=== PATIENT | male | born 1945 | race Caucasian/White ===

== ENCOUNTER 2016-09-08 13:36 | Emergency (ER) | payer MEDICARE, OTHER ==
[2016-09-08 14:29] VITALS: O2SAT 100
--- NOTE | 2016-09-08 15:24 | ERPHSYRPT ---
- History of Present Illness Time Seen by Provider: 09/08/16 14:42 Source: patient Patient Subjective Stated Complaint: STATES HIT LEFT HAND WITH A TARP STRAP THIS AM. INJURY TO LEFT 4TH DIGIT. Triage Nursing Assessment: LEFT HAND 4TH DIGIT BRUISED AND SWOLLEN. LIMITED ROM DUE TO SWELLING. Physician History: CC: left 4th finger pain Hx: 71 y/o patient of Dr Roche got left hand 4th finger twisted in a tarp strap. Pain, bruising swelling. Injury today. Declines any pain meds. He wants a splint. No other injuries. Pain mild. Occurred: this morning Severity of Pain-Max: mild Severity of Pain-Current: mild Extremities Pain Location: 4th finger: left Allergies/Adverse Reactions: hydrocodone bitartrate [From Vicodin] Allergy (Mild, Verified 09/08/16 14:33) tolmetin [From Tolectin] Allergy (Verified 09/08/16 14:44) Home Medications: Aspirin [Aspir 81] 81 mg PO HS 02/12/12 [History] Ezetimibe 10 mg [Zetia 10 MG] 10 mg PO HS 02/12/12 [History] Metoprolol Succinate 25 mg PO DAILY 02/12/12 [History] Warfarin Sodium 5 mg [Coumadin 5 MG] 5 mg PO HS 02/12/12 [History] Losartan/Hydrochlorothiazide [Losartan-Hctz 50-12.5 mg Tab] 1 each PO DAILY [History] Lansoprazole [Prevacid] 30 mg PO DAILY 11/07/15 [History] Hx Tetanus, Diphtheria Vaccination/Date Given: Yes Hx Influenza Vaccination/Date Given: No Hx Pneumococcal Vaccination/Date Given: No Immunizations Up to Date: No - Review of Systems Constitutional: No Symptoms Musculoskeletal: Joint Pain (left 4th finger), No Back Pain, No Neck Pain Neurological: No Focal Weakness, No Parasthesia - Past Medical History Pertinent Past Medical History: Yes Neurological History: No Pertinent History ENT History: No Pertinent History Cardiac History: Arrhythmia, High Cholesterol, Hypertension Respiratory History: No Pertinent History Endocrine Medical History: No Pertinent History Musculoskeletal History: Arthritis GI Medical History: GERD History: No Pertinent History Psycho-Social History: No Pertinent History Male Reproductive Disorders: No Pertinent History - Past Surgical History Past Surgical History: Yes Cardiac: Cardiac Catheterization, Cardiac Stent Gastrointestinal: Hemorrhoidectomy Musculoskeletal: Orthopedic Surgery - Social History Smoking Status: Current every day smoker How long have you smoked: 58 Exposure to second hand smoke: No Drug Use: none Patient Lives Alone: No - Nursing Vital Signs Nursing Vital Signs: Initial Vital Signs Temperature 98.0 F Temperature Source Oral Pulse Rate 87 Respiratory Rate 16 Blood Pressure [Right Arm] 132/71 Pain Intensity 3 - Physical Exam General Appearance: alert Eyes, Ears, Nose, Throat Exam: moist mucous membranes Cardiovascular/Respiratory Exam: regular rate/rhythm Neuro/Tendon Exam: normal sensation, normal motor functions Mental Status Exam: alert, oriented x 3, cooperative Skin Exam: warm, dry SpO2: 100 Oxygen Delivery: Room Air Comments: Left hand 4th finger is swollen with some bruising, more tender middle phalynx. Procedures - Splinting Location of Splint: Left Type of Splint: Foam Pad Finger Splint - Radiology Exams left hand X-ray Interpretation: Interpreted by me (fracture left 4th finger middle phalynx.) Ordered Tests: Active Orders 24 hr Category Date Time Status Cold Application STAT Care 09/08/16 14:52 Active Splint STAT Care 09/08/16 14:52 Active HAND (MINIMUM 3 VIEWS) Stat Exams 09/08/16 14:52 Taken - Progress Progress Note: 09/08/16 15:23 Advised ice, splint, rest, elevate. Follow up with Dr roche. Counseled pt/family regarding: diagnosis, need for follow-up, rad results - Departure Time of Disposition: 15:23 Departure Disposition: Home Clinical Impression: Fracture of finger, middle phalanx, closed Qualifiers: Encounter type: initial encounter Finger: ring finger Fracture alignment: nondisplaced Laterality: left Qualified Code(s): S62.655A - Nondisplaced fracture of medial phalanx of left ring finger, initial encounter for closed fracture Condition: Stable Critical Care Time: No Referrals: MALAIKA ROCHE MD [Primary Care Provider] - Instructions: Finger Fracture Additional Instructions: Ice, rest, splint. Tylenol as directed for discomfort. Follow up this week with Dr Roche.
[2016-09-08 15:32] VITALS: BP 130/74; PULSE 86
--- NOTE | 2016-09-08 20:26 | XRAY ---
Indication: Fourth finger pain following car door injury. Comparison: None 3 views of the left hand demonstrates nondisplaced hairline fracture involving the fourth middle phalanx with soft tissue swelling. No other bony, articular, or soft tissue abnormalities.
== END 2016-09-08 15:32 | disposition home or self-care (01) ==
LOC: ED 13:36
DX: S62.655A Nondisplaced fracture of middle phalanx of left ring finger, initial encounter for closed fracture (principal); W23.0XXA Caught, crushed, jammed, or pinched between moving objects, initial encounter
CPT/HCPCS: 73130; 99283

== ENCOUNTER 2023-03-10 07:01 | Emergency (ER) | payer MEDICARE, OTHER ==
[2023-03-10] MEDS ORDERED: Cordarone 150 MG/3 ML Injection ONE (07:08)
[2023-03-10] MEDS ORDERED: Sodium Chloride 0.9% 1000 ML 1,000 ML ONE (07:08)
[2023-03-10] MEDS ORDERED: NEXTERONE 360 MG/200 ML BAG 360 MG/200 ML PLAST..BAG IV ONE (07:15)
[2023-03-10] MEDS ORDERED: Cordarone 150 MG/3 ML Injection IV ONE (07:20)
[2023-03-10 07:22] VITALS: TEMP 98
[2023-03-10] MEDS ORDERED: NEXTERONE 360 MG/200 ML BAG 360 MG/200 ML PLAST..BAG IV SCH (07:25)
[2023-03-10] MEDS ORDERED: Cordarone 150 MG/3 ML Injection*** 150 MG in D5w 100ML Mini Bag 100 ML 100 ML IV ONE (07:33)
[2023-03-10] MEDS ORDERED: Zofran 4 MG/2 ML VIAL IV STA (07:33)
--- NOTE | 2023-03-10 07:38 | ERPHSYRPT ---
- History of Present Illness Time Seen by Provider: 03/10/23 07:05 Source: patient, family, EMS, old records Exam Limitations: no limitations Patient Subjective Stated Complaint: C/O SOB for a few days. Denies fever or chest pain. Does states, "My whole body aches sometimes." Triage Nursing Assessment: Patient arrived by ambulance. SOB upon arrival. EMS had patient on 02 with nebulizer. Once nebulizer finished, 02 sats on room air 93% 02 at 2L per N/C applied. NO cough noted at this time. He is flushed. Alert and oriented. Trace edema to BLE. Rapid Heart Rate. 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 Patient was brought into the emergency department by the paramedics. Both the paramedics and the patient's spouse provided independent, additional history. Paramedics provided additional history regarding the events of this morning on the provided additional independent history of medical condition, medical issues and medication list. Patient is on Viagra. He has increased the dosing to twice a day over the last 2 to 3 weeks. His prescribing physician told him he could actually take it 3 times a day. Patient has a history of hypertension, COPD and gastroesophageal reflux disease. The patient received Solu-Medrol intravenously and two DuoNeb treatments by the paramedics en route to our facility. Patient did not take his morning medication. Patient denies fever. Patient denies chest pain. Patient denies cough. Patient's room air oxygen saturation level on arrival to the emergency department is 93%. Timing/Duration: day(s) (2), worse (Symptoms worse this morning) Activities at Onset: none Severity of Dyspnea-Max: mild (To moderate) Severity of Dyspnea-Current: mild Possible Cause: occasional episodes Modifying Factors: Improves With: oxygen (Improved) Associated Symptoms: No cough, No chest pain/discomfort, No loss of appetite, No wheezing, No weakness, No chills, No hemoptysis, No productive cough Allergies/Adverse Reactions: hydrocodone bitartrate [From Vicodin] Allergy (Mild, Verified 03/10/23 07:02) tolmetin [From Tolectin] Allergy (Verified 03/10/23 07:02) Home Medications: Aspirin [Aspir 81] 81 mg PO HS 02/12/12 [History] Ezetimibe 10 mg [Zetia 10 MG] 10 mg PO HS 02/12/12 [History] Losartan/Hydrochlorothiazide [Losartan-Hctz 50-12.5 mg Tab] 1 tab PO DAILY 03/24/14 [History] Lansoprazole [Prevacid] 30 mg PO DAILY 11/07/15 [History] Nitroglycerin [Nitrostat] 0.4 mg SL Q5MIN PRN MR X 3 PRN 04/04/20 [History] Vit A/Vit C/Vit E/Zinc/Copper [Preservision Areds Softgel] 1 tablet PO DAILY 04/04/20 [History] Tamsulosin HCl 0.4 mg [Flomax 0.4 MG] 0.4 mg PO DAILY 12/26/20 [History] Allopurinol 100 mg [Zyloprim 100 mg] 1 tab PO HS 03/10/23 [History] Apixaban [Eliquis] 1 tab PO BID 03/10/23 [History] Fluticasone/Umeclidin/Vilanter [Trelegy Ellipta 100-62.5-25] 1 puff PO DAILY 03/10/23 [History] Ipratropium/Albuterol Sulfate [Combivent Respimat Inhal [place]] 1 puff PO QID 03/10/23 [History] Metoprolol Tartrate 25 mg [Lopressor 25MG Tab] 1 tab PO DAILY 03/10/23 [History] Sildenafil Citrate 1 tab PO BID 03/10/23 [History] Hx Tetanus, Diphtheria Vaccination/Date Given: Yes Hx Influenza Vaccination/Date Given: No Hx Pneumococcal Vaccination/Date Given: No Immunizations Up to Date: Yes Travel Risk - International Travel Have you traveled outside of the country in past 3 weeks: No - Coronavirus Screening Are you exhibiting any of the following symptoms?: Yes Symptoms: Cough: New Onset, Shortness of Breath, Vomiting/Diarrhea, Headaches/Body Aches/Fatigue Close contact with a COVID-19 positive Pt in past 14-21 Days: No - Vaccine Status Have you recieved a Covid-19 vaccination: Yes Assistant Operator: Unknown - Vaccination Dates Dates if Unknown: ? - Review of Systems Constitutional: No Symptoms Eyes: No Symptoms Ears, Nose, & Throat: No Symptoms Respiratory: Dyspnea Cardiac: Palpitations, No Chest Pain Abdominal/Gastrointestinal: Vomiting (Once this morning) Genitourinary Symptoms: No Symptoms Musculoskeletal: Arthralgias, Myalgias Skin: No Symptoms Neurological: No Symptoms Psychological: No Symptoms Endocrine: No Symptoms Hematologic/Lymphatic: No Symptoms Immunological/Allergic: No Symptoms All Other Systems: Reviewed and Negative - Past Medical History Pertinent Past Medical History: Yes Neurological History: TIA ENT History: No Pertinent History Cardiac History: Arrhythmia, Coronary Artery Disease, Hypertension Respiratory History: COPD, Other Endocrine Medical History: No Pertinent History Musculoskeletal History: Arthritis, Other GI Medical History: GERD, Hemorrhoids History: No Pertinent History Psycho-Social History: No Pertinent History Male Reproductive Disorders: No Pertinent History Other Medical History: RETINOPATHY, LEFT SHOULDER SURGERY 30 YEARS AGO, AFIB, Black Lung. 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 - Past Surgical History Past Surgical History: Yes Cardiac: Cardiac Catheterization, Cardiac Stent Gastrointestinal: Hemorrhoidectomy Musculoskeletal: Orthopedic Surgery Other Surgical History: knee surgery, shoulder surgery - Social History Smoking Status: Current every day smoker How long have you smoked: 60 years Exposure to second hand smoke: No Drug Use: none Patient Lives Alone: No - Nursing Vital Signs Nursing Vital Signs: Initial Vital Signs Temperature 98 F 03/10/23 07:05 Pulse Rate 133 H 03/10/23 07:05 Respiratory Rate 30 H 03/10/23 07:05 Blood Pressure 140/88 03/10/23 07:05 O2 Sat by Pulse Oximetry 93 L 03/10/23 07:05 Pain Scale Pain Intensity 0 - Physical Exam General Appearance: no apparent distress, alert, anxiety Eye Exam: PERRL/EOMI, eyes nml inspection Ears, Nose, Throat Exam: hearing grossly normal, normal ENT inspection, normal pharynx Neck Exam: normal inspection, non-tender, supple, full range of motion Respiratory Exam: normal breath sounds, lungs clear, No chest tenderness, No respiratory distress Cardiovascular/Chest Exam: tachycardia (Wide-complex tachycardia on twelve-lead EKG) Abdominal/Gastrointestinal Exam: soft, normal bowel sounds, No tenderness Rectal Exam: not done Extremity Exam: non-tender Neurologic Exam: alert, oriented x 3, cooperative, biometrics head II-XII nml as tested, normal mood/affect, sensation nml Skin Exam: normal color, warm, dry Lymphatic Exam: No adenopathy SpO2 Interpretation: borderline oxygenation SpO2: 93 O2 Delivery: Room Air - Course Nursing assessment & vital signs reviewed: Yes EKG Interpreted by Me: RATE (151), LAFB, NORMAL INTERVALS, Right Bundle Branch Block, Other (Wide QRS tachycardia. 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 STAT Care 03/10/23 07:34 Active EKG-ER Only STAT Care 03/10/23 07:33 Active IV Insertion STAT Care 03/10/23 07:33 Active Pulse Oximetry (ED) STAT Care 03/10/23 07:33 Active CHEST 1 VIEW (PORTABLE) Stat Exams 03/10/23 07:33 Completed CHEST WITH CONTRAST [CT] Stat Exams 03/10/23 08:43 Completed BLOOD CULTURE Stat Lab 03/10/23 07:27 Received CBC W DIFF Stat Lab 03/10/23 07:34 Completed CMP Stat Lab 03/10/23 07:34 Completed CULTURE,URINE Stat Lab 03/10/23 09:47 Received D-DIMER QUANTITATIVE Stat Lab 03/10/23 07:34 Completed MAGNESIUM Stat Lab 03/10/23 07:34 Completed MONO SCREEN Stat Lab 03/10/23 07:34 Completed NT PRO BNPII Stat Lab 03/10/23 07:34 Completed PROTIME WITH INR Stat Lab 03/10/23 07:34 Completed TROPONIN Q4H Lab 03/10/23 07:34 Completed TROPONIN Q4H Lab 03/10/23 11:45 Ordered TROPONIN Q4H Lab 03/10/23 15:45 Ordered UA W/RFX UR CULTURE Stat Lab 03/10/23 09:47 Completed Medication Summary Generic Name Dose Route Start Last Admin Trade Name Freq PRN Reason Stop Dose Admin Amiodarone HCl/Dextrose 360 mg in 200 mls @ 33 mls/hr 03/10/23 07:25 03/10/23 07:26 Nexterone 360 Mg/200 Ml Bag IV 04/09/23 07:24 33 mls/hr .Q6H4M ENOCH 33 mls/hr Administration Protocol Discontinued Medications Generic Name Dose Route Start Last Admin Trade Name Freq PRN Reason Stop Dose Admin Amiodarone HCl Confirm 03/10/23 07:08 Amiodarone Hcl 150 Mg/3 Ml Vial Administered 03/10/23 07:09 Dose 300 mg .ROUTE .STK-MED ONE Amiodarone HCl 150 mg 03/10/23 07:20 03/10/23 07:20 Amiodarone Hcl 150 Mg/3 Ml Vial IV 03/10/23 07:21 150 mg STAT ONE Administration Sodium Chloride Confirm 03/10/23 07:08 Sodium Chloride 0.9% 1000 Ml Administered 03/10/23 07:09 Dose 1,000 mls @ ud .ROUTE .STK-MED ONE Amiodarone HCl/Dextrose Confirm 03/10/23 07:15 Nexterone 360 Mg/200 Ml Bag Administered 03/10/23 07:16 Dose 360 mg in 200 mls @ ud IV .STK-MED ONE Amiodarone HCl 150 mg/ 103 mls @ 618 mls/hr 03/10/23 07:33 03/10/23 07:56 Dextrose IV 03/10/23 07:42 Not Given STAT ONE Sodium Chloride 500 mls @ 500 mls/hr 03/10/23 08:42 03/10/23 10:01 Sodium Chloride 0.9% 500 Ml IV 03/10/23 09:41 Infused .Q1H ONE Infusion Sodium Chloride Confirm 03/10/23 08:47 Sodium Chloride 0.9% 500 Ml Administered 03/10/23 08:48 Dose 500 mls @ ud IV .STK-MED ONE Metoprolol Tartrate 5 mg 03/10/23 08:32 03/10/23 08:51 Metoprolol Tartrate 5 Mg/5 Ml Vial IV 03/10/23 08:33 5 mg STAT ONE Administration Metoprolol Tartrate Confirm 03/10/23 08:46 Metoprolol Tartrate 5 Mg/5 Ml Vial Administered 03/10/23 08:47 Dose 5 mg IV .STK-MED ONE Ondansetron HCl 4 mg 03/10/23 07:33 03/10/23 08:13 Ondansetron Hcl 4 Mg/2 Ml Vial IV 03/10/23 07:34 Not Given STAT STA Ondansetron HCl Confirm 03/10/23 08:08 Ondansetron Hcl 4 Mg/2 Ml Vial Administered 03/10/23 08:09 Dose 4 mg .ROUTE .STK-MED ONE Lab/Rad Data: Laboratory Result Diagrams 03/10/23 07:34 03/10/23 07:34 Laboratory Results 03/10/23 03/10/23 03/10/23 Range/Units 09:47 07:50 07:34 WBC (4.0-10.5) x10^3/uL RBC (4.1-5.6) x10^6/uL Hgb (12.5-18.0) g/dL Hct (42-50) % MCV (78-100) fL MCH (26-32) pg MCHC (32-36) g/dL RDW (11.5-14.0) % Plt Count (150-450) x10^3/uL MPV (7.5-11.0) fL Gran % (36.0-66.0) % Immature Gran % (Auto) (0.00-0.4) % Nucleat RBC Rel Count (0.00-0.1) % Eos # (Auto) (0-0.5) x10^3/uL Immature Gran # (Auto) (0.00-0.03) x10^3u/L Absolute Lymphs (auto) (1.0-4.6) x10^3/uL Absolute Monos (auto) (0.0-1.3) x10^3/uL Absolute Nucleated RBC (0.00-0.01) x10^3u/L Lymphocytes % (24.0-44.0) % Monocytes % (0.0-12.0) % Eosinophils % (0.00-5.0) % Basophils % (0.0-0.4) % Absolute Granulocytes (1.4-6.9) x10^3/uL Basophils # (0-0.4) x10^3/uL PT (9.4-12.5) SECONDS INR (0.8-3.0) D-Dimer (0.0-0.50) mg/L Sodium (137-145) mmol/L Potassium (3.5-5.1) mmol/L Chloride (98-107) mmol/L Carbon Dioxide (22-30) mmol/L Anion Gap (5-15) MEQ/L BUN (9-20) mg/dL Creatinine (0.66-1.25) mg/dL Estimated GFR ML/MIN Glucose (74-106) mg/dL Calcium (8.4-10.2) mg/dL Magnesium (1.6-2.3) mg/dL Total Bilirubin (0.2-1.3) mg/dL AST (17-59) U/L ALT (0-50) U/L Alkaline Phosphatase (38-126) U/L Troponin I (0.000-0.034) ng/mL NT-Pro-B Natriuret Pep (<300) pg/mL Serum Total Protein (6.3-8.2) g/dL Albumin (3.5-5.0) g/dL Urine Color Yellow (Yellow) Urine Appearance Clear (Clear) Urine pH 5.0 (4.6-8.0) Ur Specific [place] >=1.030 A (1.005-1.030) Urine Protein 30 (Negative) Urine Glucose (UA) Negative (Negative) mg/dL Urine Ketones Negative (Negative) Urine Blood Moderate A (Negative) Urine Nitrite Negative (Negative) Urine Bilirubin Negative (Negative) Urine Urobilinogen 1.0 A (0.2) mg/dL Ur Leukocyte Esterase Negative (Negative) U Hyaline Cast (Auto) NONE SEEN (0-2) /LPF Urine Microscopic RBC 11-20 A (0-5) /HPF Urine Microscopic WBC 0-2 (0-5) /HPF Ur Epithelial Cells Rare (None Seen) /HPF Urine Bacteria None Seen (None Seen) /HPF Urine Culture Reflexed YES (NO) Monoscreen NEGATIVE (NEGATIVE) Influenza Type A Ag NEGATIVE (NEGATIVE) Influenza Type B Ag NEGATIVE (NEGATIVE) RSV (PCR) NEGATIVE (NEGATIVE) SARS-CoV-2 (PCR) NEGATIVE (NEGATIVE) 03/10/23 03/10/23 03/10/23 Range/Units 07:34 07:34 07:34 WBC (4.0-10.5) x10^3/uL RBC (4.1-5.6) x10^6/uL Hgb (12.5-18.0) g/dL Hct (42-50) % MCV (78-100) fL MCH (26-32) pg MCHC (32-36) g/dL RDW (11.5-14.0) % Plt Count (150-450) x10^3/uL MPV (7.5-11.0) fL Gran % (36.0-66.0) % Immature Gran % (Auto) (0.00-0.4) % Nucleat RBC Rel Count (0.00-0.1) % Eos # (Auto) (0-0.5) x10^3/uL Immature Gran # (Auto) (0.00-0.03) x10^3u/L Absolute Lymphs (auto) (1.0-4.6) x10^3/uL Absolute Monos (auto) (0.0-1.3) x10^3/uL Absolute Nucleated RBC (0.00-0.01) x10^3u/L Lymphocytes % (24.0-44.0) % Monocytes % (0.0-12.0) % Eosinophils % (0.00-5.0) % Basophils % (0.0-0.4) % Absolute Granulocytes (1.4-6.9) x10^3/uL Basophils # (0-0.4) x10^3/uL PT 10.5 (9.4-12.5) SECONDS INR 0.96 (0.8-3.0) D-Dimer 0.69 H* (0.0-0.50) mg/L Sodium 137 (137-145) mmol/L Potassium 4.0 (3.5-5.1) mmol/L Chloride 102 (98-107) mmol/L Carbon Dioxide 25 (22-30) mmol/L Anion Gap 14.0 (5-15) MEQ/L BUN 20 (9-20) mg/dL Creatinine 1.04 (0.66-1.25) mg/dL Estimated GFR 74.0 ML/MIN Glucose 133 H (74-106) mg/dL Calcium 9.0 (8.4-10.2) mg/dL Magnesium 1.9 (1.6-2.3) mg/dL Total Bilirubin 0.80 (0.2-1.3) mg/dL AST 40 (17-59) U/L ALT 25 (0-50) U/L Alkaline Phosphatase 96 (38-126) U/L Troponin I < 0.012 (0.000-0.034) ng/mL NT-Pro-B Natriuret Pep 266 (<300) pg/mL Serum Total Protein 7.7 (6.3-8.2) g/dL Albumin 4.1 (3.5-5.0) g/dL Urine Color (Yellow) Urine Appearance (Clear) Urine pH (4.6-8.0) Ur Specific [place] (1.005-1.030) Urine Protein (Negative) Urine Glucose (UA) (Negative) mg/dL Urine Ketones (Negative) Urine Blood (Negative) Urine Nitrite (Negative) Urine Bilirubin (Negative) Urine Urobilinogen (0.2) mg/dL Ur Leukocyte Esterase (Negative) U Hyaline Cast (Auto) (0-2) /LPF Urine Microscopic RBC (0-5) /HPF Urine Microscopic WBC (0-5) /HPF Ur Epithelial Cells (None Seen) /HPF Urine Bacteria (None Seen) /HPF Urine Culture Reflexed (NO) Monoscreen (NEGATIVE) Influenza Type A Ag (NEGATIVE) Influenza Type B Ag (NEGATIVE) RSV (PCR) (NEGATIVE) SARS-CoV-2 (PCR) (NEGATIVE) 03/10/23 Range/Units 07:34 WBC 15.4 H (4.0-10.5) x10^3/uL RBC 5.23 (4.1-5.6) x10^6/uL Hgb 16.3 (12.5-18.0) g/dL Hct 49.3 (42-50) % MCV 94.3 (78-100) fL MCH 31.2 (26-32) pg MCHC 33.1 (32-36) g/dL RDW 13.2 (11.5-14.0) % Plt Count 280 (150-450) x10^3/uL MPV 9.1 (7.5-11.0) fL Gran % 70.0 H (36.0-66.0) % Immature Gran % (Auto) 0.5 H (0.00-0.4) % Nucleat RBC Rel Count 0.0 (0.00-0.1) % Eos # (Auto) 0.23 (0-0.5) x10^3/uL Immature Gran # (Auto) 0.08 H (0.00-0.03) x10^3u/L Absolute Lymphs (auto) 3.11 (1.0-4.6) x10^3/uL Absolute Monos (auto) 1.14 (0.0-1.3) x10^3/uL Absolute Nucleated RBC 0.00 (0.00-0.01) x10^3u/L Lymphocytes % 20.3 L (24.0-44.0) % Monocytes % 7.4 (0.0-12.0) % Eosinophils % 1.5 (0.00-5.0) % Basophils % 0.3 (0.0-0.4) % Absolute Granulocytes 10.75 H (1.4-6.9) x10^3/uL Basophils # 0.04 (0-0.4) x10^3/uL PT (9.4-12.5) SECONDS INR (0.8-3.0) D-Dimer (0.0-0.50) mg/L Sodium (137-145) mmol/L Potassium (3.5-5.1) mmol/L Chloride (98-107) mmol/L Carbon Dioxide (22-30) mmol/L Anion Gap (5-15) MEQ/L BUN (9-20) mg/dL Creatinine (0.66-1.25) mg/dL Estimated GFR ML/MIN Glucose (74-106) mg/dL Calcium (8.4-10.2) mg/dL Magnesium (1.6-2.3) mg/dL Total Bilirubin (0.2-1.3) mg/dL AST (17-59) U/L ALT (0-50) U/L Alkaline Phosphatase (38-126) U/L Troponin I (0.000-0.034) ng/mL NT-Pro-B Natriuret Pep (<300) pg/mL Serum Total Protein (6.3-8.2) g/dL Albumin (3.5-5.0) g/dL Urine Color (Yellow) Urine Appearance (Clear) Urine pH (4.6-8.0) Ur Specific [place] (1.005-1.030) Urine Protein (Negative) Urine Glucose (UA) (Negative) mg/dL Urine Ketones (Negative) Urine Blood (Negative) Urine Nitrite (Negative) Urine Bilirubin (Negative) Urine Urobilinogen (0.2) mg/dL Ur Leukocyte Esterase (Negative) U Hyaline Cast (Auto) (0-2) /LPF Urine Microscopic RBC (0-5) /HPF Urine Microscopic WBC (0-5) /HPF Ur Epithelial Cells (None Seen) /HPF Urine Bacteria (None Seen) /HPF Urine Culture Reflexed (NO) Monoscreen (NEGATIVE) Influenza Type A Ag (NEGATIVE) Influenza Type B Ag (NEGATIVE) RSV (PCR) (NEGATIVE) SARS-CoV-2 (PCR) (NEGATIVE) - Progress Progress: improved, re-examined Air Movement: good Progress Note: 03/10/23 07:36 This patient's medical issue is 1 of high complexity. The level of complexity in the workup performed is based on review of the patient's past medical history, review of patient's medication list, review of the patient's drug allergy list, history of present illness and physical findings on examination. The workup in this patient includes placement of intravenous line, twelve-lead EKG, CBC, CMP, magnesium level, BNP, D-dimer, troponin level, chest x-ray, urinalysis, COVID/viral swabs, monotest. Initial twelve-lead EKG on arrival showed a wide complex regular tachycardia with a heart rate of 151. We provided the patient with a bolus of 150 mg intravenous amiodarone followed by a drip of amiodarone intravenously. 03/10/23 08:30 Repeat twelve-lead EKG on 03/10/2023 at 8:26 AM after patient received 150 mg bolus intravenously of amiodarone followed by amiodarone drip, the patient's heart rate is 103 bpm. The rhythm is atrial fibrillation. Patient has right bundle branch block and LPFB. No evidence of any acute ischemic changes on this repeat twelve-lead EKG. 03/10/23 09:55 I interpreted the laboratory data. The D-dimer is elevated 0.69. I ordered a CT scan of the chest with contrast. Chest x-ray was interpreted by the radiologist and I reviewed the impression. There is diffuse chronic interstitial lung markings. No focal infiltrate present. CTA of chest was interpreted by the radiologist and I reviewed the impression. There is extensive pulmonary emphysema. There is negative for pulmonary embolus. There is mediastinal lymphadenopathy possibly reactive. Primary and metastatic adenopathy not entirely excluded. 03/10/23 10:16 I spoke with [facility] department physician Dr. Ramos. I reviewed the patient history, presenting complaint, physical findings, workup performed with results and patient response to our interventions. Dr. Ramos accepts the patient in transfer. Blood Culture(s) Obtained: Yes Antibiotics given: No Counseled pt/family regarding: lab results, diagnosis, rad results Medical Desision Making - Independent Historian Additional History obtained from: Spouse - Diagnostic Testing Diagnostic test were ordered, analyzed, and reviewed by me: Yes Radiological Interpretation: Reviewed by me, Teleradiologist Report - Risk of complications The pt has a high risk of morbidity or mortality based on: Decision regarding hospitilization or escalation of hosp level of care - Departure Departure Disposition: Transfer Clinical Impression: Wide-complex tachycardia Condition: Stable Critical Care Time: Yes Critical Care Time(excluding separately billable procedures): Critical 30-74 mins (45 minutes) Referrals: MALAIKA ROCHE MD [Primary Care Provider] - Follow up/PCP as directed
[2023-03-10 07:56] LABS: Absolute Neutrophil Ct (ANC) 10.75 x10^3/uL (1.4-6.9); BASOPHIL % 0.3 % (0.0-0.4); Basophil (Absolute #) 0.04 x10^3/uL (0-0.4); Eosinophil % 1.5 % (0.00-5.0); Eosinophil (Absolute #) 0.23 x10^3/uL (0-0.5); Hematocrit 49.3 % (42-50); Hemoglobin 16.3 g/dL (12.5-18.0); IMMATURE GRAN # 0.08 x10^3u/L (0.00-0.03); IMMATURE GRAN % 0.5 % (0.00-0.4); Lymphocyte (Absolute #) 3.11 x10^3/uL (1.0-4.6); Lymphocytes % 20.3 % (24.0-44.0); Mean Cell Volume 94.3 fL (78-100); Mean Corpuscular Hemoglobin 31.2 pg (26-32); Mean Corpuscular Hgb Concent. 33.1 g/dL (32-36); Mean Platelet Volume 9.1 fL (7.5-11.0); Monocyte (Absolute #) 1.14 x10^3/uL (0.0-1.3); Monocytes % 7.4 % (0.0-12.0); Platelet Count 280 x10^3/uL (150-450); Red Blood Count 5.23 x10^6/uL (4.1-5.6); Red Cell Distribution Width 13.2 % (11.5-14.0); White Blood Count 15.4 x10^3/uL (4.0-10.5)
[2023-03-10] MEDS ORDERED: Zofran 4 MG/2 ML VIAL ONE (08:08)
[2023-03-10 08:22] LABS: INR 0.96 (0.8-3.0); PROTIME 10.5 SECONDS (9.4-12.5)
[2023-03-10 08:31] LABS: ALBUMIN 4.1 g/dL (3.5-5.0); BILIRUBIN,TOTAL 0.8 mg/dL (0.2-1.3); Creatinine 1 1.04 mg/dL (0.66-1.25); MAGNESIUM 1.9 mg/dL (1.6-2.3); Total Protein 7.7 g/dL (6.3-8.2)
[2023-03-10] MEDS ORDERED: LOPRESSOR INJECTION IV ONE ×2 (08:32→08:46)
[2023-03-10 08:33] LABS: INFLUENZA A NEGATIVE (NEGATIVE); INFLUENZA B NEGATIVE (NEGATIVE); RESPIRATORY SYNCTIAL VIRUS NEGATIVE (NEGATIVE); SARS-CoV-2 Xpert Express NEGATIVE (NEGATIVE)
[2023-03-10 08:41] LABS: D-DIMER QUANTITATIVE 0.69 mg/L (0.0-0.50)
[2023-03-10] MEDS ORDERED: Sodium Chloride 0.9% 500 ML 500 ML IV ONE ×2 (08:42→08:47)
--- NOTE | 2023-03-10 09:01 | XRAY ---
Indication: Short of breath. History of "black lung disease." Comparison: February 12, 2012 Portable chest demonstrates worsening diffuse bilateral chronic interstitial lung markings. No focal infiltrate, consolidation, or large effusion. Heart not enlarged. Bony thorax. No new/acute findings.
--- NOTE | 2023-03-10 09:49 | XRAY ---
Indication: Short of breath and tachycardia. Elevated d-dimer. Multiple contiguous axial images obtained through the chest using 100 cc Isovue 370 contrast and PE protocol. Comparison: None Good opacification of the pulmonary arteries to include the lobar and segmental branches. No pulmonary embolus. Heart not enlarged. Aorta minimally arteriosclerotic without aneurysm/dissection. Several prominent mediastinal nodes, largest subcarinal appearing matted overall measuring 2.5 x 5.5 cm in greatest axial dimension. Incidental small right hilar calcified node. Lungs demonstrate extensive diffuse bilateral centrilobular pulmonary emphysema with scattered fibrosis/scarring. Minimal scattered bilateral pleural thickening. No suspicious pulmonary mass/nodule, infiltrate, or pneumothorax. Bony thorax intact with osteopenia and mild degenerative changes throughout the spine. Limited upper abdomen demonstrates fatty liver and tiny splenic calcified granulomas. Impression: 1. Negative pulmonary embolus. 2. Mediastinal lymphadenopathy possibly reactive. Primary/metastatic malignancy not completely excluded in right clinical setting. 3. Chronic findings including extensive pulmonary emphysema with scattered fibrosis/scarring, bilateral pleural thickening, chronic bony findings, fatty liver, and old granulomatous disease.
[2023-03-10 10:06] LABS: Appearance Clear (Clear); Bacteria None Seen /HPF (None Seen); Bilirubin Negative (Negative); Blood Moderate (Negative); Epithelial Cells Rare /HPF (None Seen); Glucose, Urine Negative (Negative); Hyaline Casts NONE SEEN /LPF (0-2); Ketones Negative (Negative); Leukocyte Esterase Negative (Negative); Nitrite Negative (Negative); Protein,Urine Dip 30 (Negative); Specific Gravity >=1.030 (1.005-1.030); WBC 0-2 /HPF (0-5)
[2023-03-10 10:07] LABS: ADD URINE CULTURE? YES (NO)
[2023-03-10 12:20] VITALS: BP 115/77; PULSE 81; RESP 18; O2SAT 96
== END 2023-03-10 12:36 | disposition short-term general hospital (02) ==
LOC: ED 07:01
DX: R00.0 Tachycardia, unspecified (principal); R06.02 Shortness of breath; M79.10 Myalgia, unspecified site; I10 Essential (primary) hypertension; Z79.01 Long term (current) use of anticoagulants; Z79.899 Other long term (current) drug therapy; Z72.0 Tobacco use; Z20.828 Contact with and (suspected) exposure to other viral communicable diseases
CPT/HCPCS: 0241U; 36000; 36415; 71045; 71260; 80053; 81001; 83735; 83880; 84484; 85025; 85379; 85610; 86308; 87040; 87086; 93005; 93041; 94760; 96365; 96374; 96375; 99285; 99291; J0282; J2405

== ENCOUNTER 2023-03-21 09:34 | Emergency (ER) | payer MEDICARE, OTHER ==
--- NOTE | 2023-03-21 09:43 | ERPHSYRPT ---
- History of Present Illness Time Seen by Provider: 03/21/23 09:42 Source: patient, family Exam Limitations: no limitations Physician History: pt reports blood in urine THis has recurred from earlier last month - they have not determined a cause but Urologist treated hiome for infection and stopped AC - this resoloved to baseline hematuria but has now recurred with resuming elliquis which the pt stopped last night and returns to ER today. He also was in 2 weeks ago for Tx exacerbation of COPD. Timing/Duration: yesterday, week(s) Activites at Onset: none Quality: other (hematuria) Pain Radiation: none Severity of Pain-Max: none Severity of Pain-Current: none Modifying Factors: Improves With: urinating Associated Symptoms: denies symptoms Prior abdominal problems: none Sexual intercourse history: non-contributory Allergies/Adverse Reactions: hydrocodone bitartrate [From Vicodin] Allergy (Mild, Verified 03/21/23 10:01) tolmetin [From Tolectin] Allergy (Verified 03/21/23 10:01) Home Medications: Aspirin [Aspir 81] 81 mg PO HS 02/12/12 [History] Ezetimibe 10 mg [Zetia 10 MG] 10 mg PO HS 02/12/12 [History] Losartan/Hydrochlorothiazide [Losartan-Hctz 50-12.5 mg Tab] 1 tab PO DAILY 03/24/14 [History] Lansoprazole [Prevacid] 30 mg PO DAILY 11/07/15 [History] Nitroglycerin [Nitrostat] 0.4 mg SL Q5MIN PRN MR X 3 PRN 04/04/20 [History] Vit A/Vit C/Vit E/Zinc/Copper [Preservision Areds Softgel] 1 tablet PO DAILY 04/04/20 [History] Tamsulosin HCl 0.4 mg [Flomax 0.4 MG] 0.4 mg PO DAILY 12/26/20 [History] Allopurinol 100 mg [Zyloprim 100 mg] 1 tab PO HS 03/10/23 [History] Apixaban [Eliquis] 1 tab PO BID 03/10/23 [History] Fluticasone/Umeclidin/Vilanter [Trelegy Ellipta 100-62.5-25] 1 puff PO DAILY 03/10/23 [History] Ipratropium/Albuterol Sulfate [Combivent Respimat Inhal [place]] 1 puff PO QID 03/10/23 [History] Metoprolol Tartrate 25 mg [Lopressor 25MG Tab] 1 tab PO DAILY 03/10/23 [History] Sildenafil Citrate 1 tab PO BID 03/10/23 [History] Hx Tetanus, Diphtheria Vaccination/Date Given: Yes Hx Influenza Vaccination/Date Given: No Hx Pneumococcal Vaccination/Date Given: No Travel Risk - Vaccine Status Have you recieved a Covid-19 vaccination: Yes Burial V[employer] Maker: Unknown - Vaccination Dates Dates if Unknown: ? - Past Medical History Pertinent Past Medical History: Yes Neurological History: TIA ENT History: No Pertinent History Cardiac History: Arrhythmia, Coronary Artery Disease, Hypertension Respiratory History: COPD, Other Endocrine Medical History: No Pertinent History Musculoskeletal History: Arthritis, Other GI Medical History: GERD, Hemorrhoids History: No Pertinent History Psycho-Social History: No Pertinent History Male Reproductive Disorders: No Pertinent History Other Medical History: RETINOPATHY, LEFT SHOULDER SURGERY 30 YEARS AGO, AFIB, Black Lung. Co Founder And Cto: Dr. Coreas - Past Surgical History Past Surgical History: Yes Cardiac: Cardiac Catheterization, Cardiac Stent Gastrointestinal: Hemorrhoidectomy Musculoskeletal: Orthopedic Surgery Other Surgical History: knee surgery, shoulder surgery - Social History Smoking Status: Current every day smoker How long have you smoked: 60 years Exposure to second hand smoke: No Drug Use: none Patient Lives Alone: No - Review of Systems Constitutional: No Fever, No Chills Eyes: No Symptoms Ears, Nose, & Throat: No Symptoms Respiratory: No Cough, No Dyspnea Cardiac: No Chest Pain, No Edema, No Syncope Abdominal/Gastrointestinal: No Abdominal Pain, No Nausea, No Vomiting, No Shayla rrhea Genitourinary Symptoms: Hematuria, No Dysuria Musculoskeletal: No Back Pain, No Neck Pain Skin: No Symptoms, No Rash Neurological: No Dizziness, No Focal Weakness, No Sensory Changes Psychological: No Symptoms Endocrine: No Symptoms Hematologic/Lymphatic: No Symptoms Immunological/Allergic: No Symptoms All Other Systems: Reviewed and Negative - Nursing Vital Signs Nursing Vital Signs: Initial Vital Signs Temperature 98.0 F 03/21/23 10:04 Pulse Rate 64 03/21/23 10:04 Respiratory Rate 18 03/21/23 10:04 Blood Pressure 166/92 03/21/23 10:04 O2 Sat by Pulse Oximetry 95 03/21/23 10:04 Pain Scale Pain Intensity 0 - Physical Exam General Appearance: no apparent distress, alert Eye Exam: PERRL/EOMI Ears, Nose, Throat Exam: pharynx normal, moist mucous membranes Neck Exam: normal inspection, supple Respiratory Exam: normal breath sounds, lungs clear Cardiovascular Exam: regular rate/rhythm, No edema Gastrointestinal/Abdomen Exam: soft, No tenderness Back Exam: normal inspection, No CVA tenderness Extremity Exam: normal inspection, normal range of motion, No pedal edema Neurologic Exam: alert, oriented x 3, cooperative, sensation nml, No motor deficits Skin Exam: normal color, warm, dry, No rash SpO2 Interpretation: borderline oxygenation O2 Delivery: Nasal Cannula - Course Nursing assessment & vital signs reviewed: Yes EKG Interpreted by Me: A-fib, LAFB, Right Bundle Branch Block, Non-specific ST Changes - CT Exams Abdomen/Pelvis CT Interpretation: Tele-radiologist Report, Other (urinary bladder mass renal stranding) Ordered Tests: Active Orders 24 hr Category Date Time Status EKG-ER Only STAT Care 03/21/23 14:09 Active ABDOMEN AND PELVIS W/0 CONTRAS [CT] Stat Exams 03/21/23 14:08 Completed CBC W DIFF Stat Lab 03/21/23 10:42 Completed CMP Stat Lab 03/21/23 10:42 Completed CULTURE,URINE Stat Lab 03/21/23 10:00 Received D-DIMER QUANTITATIVE Stat Lab 03/21/23 10:53 Completed LIPASE Stat Lab 03/21/23 10:53 Completed Lactic Acid Stat Lab 03/21/23 14:07 Completed NT PRO BNPII Stat Lab 03/21/23 10:53 Completed PT INR [PROTIME WITH INR] Stat Lab 03/21/23 11:13 Completed PTT Stat Lab 03/21/23 11:13 Completed TROPONIN Q4H Lab 03/21/23 10:53 Completed TROPONIN Q4H Lab 03/21/23 17:40 Completed UA W/RFX UR CULTURE Stat Lab 03/21/23 10:00 Completed Medication Summary Discontinued Medications Generic Name Dose Route Start Last Admin Trade Name Freq PRN Reason Stop Dose Admin Prednisone 30 mg 03/21/23 22:09 03/21/23 22:22 Prednisone 20 Mg Tablet PO 03/21/23 22:10 30 mg STAT ONE Administration Prednisone Confirm 03/21/23 22:18 Prednisone 20 Mg Tablet Administered 03/21/23 22:19 Dose 40 mg .ROUTE .STK-MED ONE Lab/Rad Data: Laboratory Result Diagrams 03/21/23 10:42 03/21/23 10:42 Laboratory Results 03/21/23 03/21/23 03/21/23 Range/Units 17:40 14:22 14:07 WBC (4.0-10.5) x10^3/uL RBC (4.1-5.6) x10^6/uL Hgb (12.5-18.0) g/dL Hct (42-50) % MCV (78-100) fL MCH (26-32) pg MCHC (32-36) g/dL RDW (11.5-14.0) % Plt Count (150-450) x10^3/uL MPV (7.5-11.0) fL Gran % (36.0-66.0) % Immature Gran % (Auto) (0.00-0.4) % Nucleat RBC Rel Count (0.00-0.1) % Eos # (Auto) (0-0.5) x10^3/uL Immature Gran # (Auto) (0.00-0.03) x10^3u/L Absolute Lymphs (auto) (1.0-4.6) x10^3/uL Absolute Monos (auto) (0.0-1.3) x10^3/uL Absolute Nucleated RBC (0.00-0.01) x10^3u/L Lymphocytes % (24.0-44.0) % Monocytes % (0.0-12.0) % Eosinophils % (0.00-5.0) % Basophils % (0.0-0.4) % Absolute Granulocytes (1.4-6.9) x10^3/uL Basophils # (0-0.4) x10^3/uL PT (9.4-12.5) SECONDS INR (0.8-3.0) APTT (25.1-36.5) SECONDS D-Dimer (0.0-0.50) mg/L Sodium (137-145) mmol/L Potassium (3.5-5.1) mmol/L Chloride (98-107) mmol/L Carbon Dioxide (22-30) mmol/L Anion Gap (5-15) MEQ/L BUN (9-20) mg/dL Creatinine (0.66-1.25) mg/dL Estimated GFR ML/MIN Glucose (74-106) mg/dL Lactic Acid 1.6 (0.4-2.0) Calcium (8.4-10.2) mg/dL Total Bilirubin (0.2-1.3) mg/dL AST (17-59) U/L ALT (0-50) U/L Alkaline Phosphatase (38-126) U/L Troponin I < 0.012 (0.000-0.034) ng/mL NT-Pro-B Natriuret Pep (<300) pg/mL Serum Total Protein (6.3-8.2) g/dL Albumin (3.5-5.0) g/dL Lipase (23-300) U/L Urine Color (Yellow) Urine Appearance (Clear) Urine pH (4.6-8.0) Ur Specific [place] (1.005-1.030) Urine Protein (Negative) Urine Glucose (UA) (Negative) mg/dL Urine Ketones (Negative) Urine Blood (Negative) Urine Nitrite (Negative) Urine Bilirubin (Negative) Urine Urobilinogen (0.2) mg/dL Ur Leukocyte Esterase (Negative) U Hyaline Cast (Auto) (0-2) /LPF Urine Microscopic RBC (0-5) /HPF Urine Microscopic WBC (0-5) /HPF Ur Epithelial Cells (None Seen) /HPF Urine Bacteria (None Seen) /HPF Urine Culture Reflexed (NO) Influenza Type A Ag NEGATIVE (NEGATIVE) Influenza Type B Ag NEGATIVE (NEGATIVE) RSV (PCR) NEGATIVE (NEGATIVE) SARS-CoV-2 (PCR) NEGATIVE (NEGATIVE) 03/21/23 03/21/23 03/21/23 Range/Units 11:13 10:53 10:53 WBC (4.0-10.5) x10^3/uL RBC (4.1-5.6) x10^6/uL Hgb (12.5-18.0) g/dL Hct (42-50) % MCV (78-100) fL MCH (26-32) pg MCHC (32-36) g/dL RDW (11.5-14.0) % Plt Count (150-450) x10^3/uL MPV (7.5-11.0) fL Gran % (36.0-66.0) % Immature Gran % (Auto) (0.00-0.4) % Nucleat RBC Rel Count (0.00-0.1) % Eos # (Auto) (0-0.5) x10^3/uL Immature Gran # (Auto) (0.00-0.03) x10^3u/L Absolute Lymphs (auto) (1.0-4.6) x10^3/uL Absolute Monos (auto) (0.0-1.3) x10^3/uL Absolute Nucleated RBC (0.00-0.01) x10^3u/L Lymphocytes % (24.0-44.0) % Monocytes % (0.0-12.0) % Eosinophils % (0.00-5.0) % Basophils % (0.0-0.4) % Absolute Granulocytes (1.4-6.9) x10^3/uL Basophils # (0-0.4) x10^3/uL PT 11.4 (9.4-12.5) SECONDS INR 1.05 (0.8-3.0) APTT 23.1 L (25.1-36.5) SECONDS D-Dimer (0.0-0.50) mg/L Sodium (137-145) mmol/L Potassium (3.5-5.1) mmol/L Chloride (98-107) mmol/L Carbon Dioxide (22-30) mmol/L Anion Gap (5-15) MEQ/L BUN (9-20) mg/dL Creatinine (0.66-1.25) mg/dL Estimated GFR ML/MIN Glucose (74-106) mg/dL Lactic Acid (0.4-2.0) Calcium (8.4-10.2) mg/dL Total Bilirubin (0.2-1.3) mg/dL AST (17-59) U/L ALT (0-50) U/L Alkaline Phosphatase (38-126) U/L Troponin I < 0.012 (0.000-0.034) ng/mL NT-Pro-B Natriuret Pep 772 (<300) pg/mL Serum Total Protein (6.3-8.2) g/dL Albumin (3.5-5.0) g/dL Lipase 47 (23-300) U/L Urine Color (Yellow) Urine Appearance (Clear) Urine pH (4.6-8.0) Ur Specific [place] (1.005-1.030) Urine Protein (Negative) Urine Glucose (UA) (Negative) mg/dL Urine Ketones (Negative) Urine Blood (Negative) Urine Nitrite (Negative) Urine Bilirubin (Negative) Urine Urobilinogen (0.2) mg/dL Ur Leukocyte Esterase (Negative) U Hyaline Cast (Auto) (0-2) /LPF Urine Microscopic RBC (0-5) /HPF Urine Microscopic WBC (0-5) /HPF Ur Epithelial Cells (None Seen) /HPF Urine Bacteria (None Seen) /HPF Urine Culture Reflexed (NO) Influenza Type A Ag (NEGATIVE) Influenza Type B Ag (NEGATIVE) RSV (PCR) (NEGATIVE) SARS-CoV-2 (PCR) (NEGATIVE) 03/21/23 03/21/23 03/21/23 Range/Units 10:53 10:42 10:42 WBC 17.7 H (4.0-10.5) x10^3/uL RBC 4.75 (4.1-5.6) x10^6/uL Hgb 14.8 (12.5-18.0) g/dL Hct 45.3 (42-50) % MCV 95.4 (78-100) fL MCH 31.2 (26-32) pg MCHC 32.7 (32-36) g/dL RDW 13.3 (11.5-14.0) % Plt Count 256 (150-450) x10^3/uL MPV 8.8 (7.5-11.0) fL Gran % 63.1 (36.0-66.0) % Immature Gran % (Auto) 1.5 H (0.00-0.4) % Nucleat RBC Rel Count 0.0 (0.00-0.1) % Eos # (Auto) 0.12 (0-0.5) x10^3/uL Immature Gran # (Auto) 0.26 H (0.00-0.03) x10^3u/L Absolute Lymphs (auto) 4.78 H (1.0-4.6) x10^3/uL Absolute Monos (auto) 1.32 H (0.0-1.3) x10^3/uL Absolute Nucleated RBC 0.00 (0.00-0.01) x10^3u/L Lymphocytes % 27.0 (24.0-44.0) % Monocytes % 7.4 (0.0-12.0) % Eosinophils % 0.7 (0.00-5.0) % Basophils % 0.3 (0.0-0.4) % Absolute Granulocytes 11.20 H (1.4-6.9) x10^3/uL Basophils # 0.05 (0-0.4) x10^3/uL PT (9.4-12.5) SECONDS INR (0.8-3.0) APTT (25.1-36.5) SECONDS D-Dimer 0.35 (0.0-0.50) mg/L Sodium 135 L (137-145) mmol/L Potassium 4.1 (3.5-5.1) mmol/L Chloride 97 L (98-107) mmol/L Carbon Dioxide 36 H (22-30) mmol/L Anion Gap 6.5 (5-15) MEQ/L BUN 28 H (9-20) mg/dL Creatinine 1.12 (0.66-1.25) mg/dL Estimated GFR 67.7 ML/MIN Glucose 91 (74-106) mg/dL Lactic Acid (0.4-2.0) Calcium 9.1 (8.4-10.2) mg/dL Total Bilirubin 1.00 (0.2-1.3) mg/dL AST 37 (17-59) U/L ALT 62 H (0-50) U/L Alkaline Phosphatase 78 (38-126) U/L Troponin I (0.000-0.034) ng/mL NT-Pro-B Natriuret Pep (<300) pg/mL Serum Total Protein 6.4 (6.3-8.2) g/dL Albumin 3.7 (3.5-5.0) g/dL Lipase (23-300) U/L Urine Color (Yellow) Urine Appearance (Clear) Urine pH (4.6-8.0) Ur Specific [place] (1.005-1.030) Urine Protein (Negative) Urine Glucose (UA) (Negative) mg/dL Urine Ketones (Negative) Urine Blood (Negative) Urine Nitrite (Negative) Urine Bilirubin (Negative) Urine Urobilinogen (0.2) mg/dL Ur Leukocyte Esterase (Negative) U Hyaline Cast (Auto) (0-2) /LPF Urine Microscopic RBC (0-5) /HPF Urine Microscopic WBC (0-5) /HPF Ur Epithelial Cells (None Seen) /HPF Urine Bacteria (None Seen) /HPF Urine Culture Reflexed (NO) Influenza Type A Ag (NEGATIVE) Influenza Type B Ag (NEGATIVE) RSV (PCR) (NEGATIVE) SARS-CoV-2 (PCR) (NEGATIVE) 03/21/23 Range/Units 10:00 WBC (4.0-10.5) x10^3/uL RBC (4.1-5.6) x10^6/uL Hgb (12.5-18.0) g/dL Hct (42-50) % MCV (78-100) fL MCH (26-32) pg MCHC (32-36) g/dL RDW (11.5-14.0) % Plt Count (150-450) x10^3/uL MPV (7.5-11.0) fL Gran % (36.0-66.0) % Immature Gran % (Auto) (0.00-0.4) % Nucleat RBC Rel Count (0.00-0.1) % Eos # (Auto) (0-0.5) x10^3/uL Immature Gran # (Auto) (0.00-0.03) x10^3u/L Absolute Lymphs (auto) (1.0-4.6) x10^3/uL Absolute Monos (auto) (0.0-1.3) x10^3/uL Absolute Nucleated RBC (0.00-0.01) x10^3u/L Lymphocytes % (24.0-44.0) % Monocytes % (0.0-12.0) % Eosinophils % (0.00-5.0) % Basophils % (0.0-0.4) % Absolute Granulocytes (1.4-6.9) x10^3/uL Basophils # (0-0.4) x10^3/uL PT (9.4-12.5) SECONDS INR (0.8-3.0) APTT (25.1-36.5) SECONDS D-Dimer (0.0-0.50) mg/L Sodium (137-145) mmol/L Potassium (3.5-5.1) mmol/L Chloride (98-107) mmol/L Carbon Dioxide (22-30) mmol/L Anion Gap (5-15) MEQ/L BUN (9-20) mg/dL Creatinine (0.66-1.25) mg/dL Estimated GFR ML/MIN Glucose (74-106) mg/dL Lactic Acid (0.4-2.0) Calcium (8.4-10.2) mg/dL Total Bilirubin (0.2-1.3) mg/dL AST (17-59) U/L ALT (0-50) U/L Alkaline Phosphatase (38-126) U/L Troponin I (0.000-0.034) ng/mL NT-Pro-B Natriuret Pep (<300) pg/mL Serum Total Protein (6.3-8.2) g/dL Albumin (3.5-5.0) g/dL Lipase (23-300) U/L Urine Color RED (Yellow) Urine Appearance CLOUDY (Clear) Urine pH 7.5 (4.6-8.0) Ur Specific [place] 1.010 (1.005-1.030) Urine Protein 30 (Negative) Urine Glucose (UA) Negative (Negative) mg/dL Urine Ketones Negative (Negative) Urine Blood Large A (Negative) Urine Nitrite Negative (Negative) Urine Bilirubin Negative (Negative) Urine Urobilinogen 0.2 (0.2) mg/dL Ur Leukocyte Esterase Negative (Negative) U Hyaline Cast (Auto) NONE SEEN (0-2) /LPF Urine Microscopic RBC >100 A (0-5) /HPF Urine Microscopic WBC 11-20 A (0-5) /HPF Ur Epithelial Cells None Seen (None Seen) /HPF Urine Bacteria None Seen (None Seen) /HPF Urine Culture Reflexed YES (NO) Influenza Type A Ag (NEGATIVE) Influenza Type B Ag (NEGATIVE) RSV (PCR) (NEGATIVE) SARS-CoV-2 (PCR) (NEGATIVE) - Progress Progress: improved, re-examined Progress Note: 03/21/23 14:05 pt has elevated WBC - discussed risks/benefits of additoinal testing, covid, RSV, Flu, Trop EKG, D DImer, BNP, CT, Lactate, AB Tx with pt and adn they wish to proceed. These are ordered , results discussed. 03/21/23 14:35 the additional symptoms of concern from the pt will require extended time to evaluate. 03/21/23 15:47 call from rad positive scan for concerns which could be infections in renal. 03/21/23 19:50 call is placed to Urologist to call us back, but this is taking extra time - but worth it to the pt to have definitive care of this complicated case at high risk for complications such as clots from having to stop his elliquis and from bleeding from the lesion. 03/21/23 23:[address] Conti ( Urologist) at [facility] and they have accepted the pt in transfer, just awaiting transportation and he would like 1 gm of rocephin due to elevated WBC and stranding on CT which could be infection. 03/21/23 23:[address] Other (Dr. Conti) Will see patient in: hospital (full admit) Counseled pt/family regarding: lab results, diagnosis, need for follow-up Medical Desision Making - Independent Historian Additional History obtained from: Spouse - Discussion of managment Reviewed:: Test results, Need for additional workup Agreed on:: Treatment plan, need for follow-up - Diagnostic Testing Diagnostic test were ordered, analyzed, and reviewed by me: Yes Radiological Interpretation: Reviewed by me - Risk of complications The pt has a high risk of morbidity or mortality based on: Decision regarding hospitilization or escalation of hosp level of care - Departure Departure Disposition: Transfer Clinical Impression: Lesion of urinary bladder, hematuria intractable, Chronic a-fib, elevated WBC/In Condition: Good Critical Care Time: No Referrals: MALAIKA ROCHE MD [Primary Care Provider] - Follow up/PCP as directed Instructions: Blood in the urine (hematuria) in adults
[2023-03-21 10:20] VITALS: TEMP 98
[2023-03-21 10:29] LABS: Bacteria None Seen /HPF (None Seen); Bilirubin Negative (Negative); Epithelial Cells None Seen /HPF (None Seen); Glucose, Urine Negative (Negative); Hyaline Casts NONE SEEN /LPF (0-2); Ketones Negative (Negative); Leukocyte Esterase Negative (Negative); Nitrite Negative (Negative); Ph 7.5 (4.6-8.0); Protein,Urine Dip 30 (Negative); RBC >100 /HPF (0-5); Urobilinogen 0.2 mg/dL (0.2)
[2023-03-21 10:55] LABS: BASOPHIL % 0.3 % (0.0-0.4); Basophil (Absolute #) 0.05 x10^3/uL (0-0.4); Eosinophil % 0.7 % (0.00-5.0); Eosinophil (Absolute #) 0.12 x10^3/uL (0-0.5); Hematocrit 45.3 % (42-50); Hemoglobin 14.8 g/dL (12.5-18.0); IMMATURE GRAN # 0.26 x10^3u/L (0.00-0.03); IMMATURE GRAN % 1.5 % (0.00-0.4); Lymphocyte (Absolute #) 4.78 x10^3/uL (1.0-4.6); Mean Cell Volume 95.4 fL (78-100); Mean Corpuscular Hemoglobin 31.2 pg (26-32); Mean Corpuscular Hgb Concent. 32.7 g/dL (32-36); Mean Platelet Volume 8.8 fL (7.5-11.0); Monocyte (Absolute #) 1.32 x10^3/uL (0.0-1.3); Monocytes % 7.4 % (0.0-12.0); Neutrophil % 63.1 % (36.0-66.0); Platelet Count 256 x10^3/uL (150-450); Red Blood Count 4.75 x10^6/uL (4.1-5.6); Red Cell Distribution Width 13.3 % (11.5-14.0); White Blood Count 17.7 x10^3/uL (4.0-10.5)
[2023-03-21 11:02] LABS: Appearance CLOUDY (Clear); Blood Large (Negative)
[2023-03-21 11:04] LABS: ADD URINE CULTURE? YES (NO)
[2023-03-21 11:23] LABS: INR 1.05 (0.8-3.0); PROTIME 11.4 SECONDS (9.4-12.5); PTT 23.1 SECONDS (25.1-36.5)
[2023-03-21 13:34] LABS: ALBUMIN 3.7 g/dL (3.5-5.0); ANION GAP 6.5 MEQ/L (5-15); Calcium 9.1 mg/dL (8.4-10.2); Creatinine 1 1.12 mg/dL (0.66-1.25); EST GLOMERULAR FILTRATION RATE 67.7 ML/MIN; Potassium 4.1 mmol/L (3.5-5.1); Total Protein 6.4 g/dL (6.3-8.2)
[2023-03-21 14:41] LABS: LIPASE 47 U/L (23-300); NT PRO BNPII 772 pg/mL (<300)
[2023-03-21 15:02] LABS: INFLUENZA A NEGATIVE (NEGATIVE); INFLUENZA B NEGATIVE (NEGATIVE); RESPIRATORY SYNCTIAL VIRUS NEGATIVE (NEGATIVE); SARS-CoV-2 Xpert Express NEGATIVE (NEGATIVE)
--- NOTE | 2023-03-21 15:54 | XRAY ---
CLINICAL HISTORY:elevated BP pelvic pain COMPARISON:None. TECHNIQUE:CT of the abdomen and pelvis was performed in axial plane with sagittal and coronal reconstructed images without intravenous contrast administration. FINDINGS: Right lower quadrant mesenteric fat stranding is noted. Appendix appears normal without increase in size or surrounding fluid collection. The liver is normal in size, morphology, and position. The liver shows heterogenous low attenuation parenchyma suggesting fatty infiltration with focal fatty spring areas. No intra or extrahepatic bile duct dilation. The gallbladder appears distended with normal wall thickness. No pericholecystic inflammatory changes or fluid. Unremarkable appearing pancreas. No pancreatic mass or ductal dilatation is seen. Multiple splenic calcified granulomas. Both adrenal glands appear normal. No abdominal wall pathology is seen. The kidneys appear normal in size. No cysts, calculi, masses or hydronephrosis. The ureters are normal with no stones. Stranding of the perirenal fat planes with mild fluid tracking downwards to the pelvis. The urinary bladder is normally distended and shows focal polypoidal soft tissue thickening at the right lateral wall measuring about (17 x 15 mm) with suspected another smaller focal wall thickening at the urinary bladder base on the left side. Enlarged prostate indenting the urinary bladder base. The abdominal aorta shows atheromatous calcifications and its main branches. The stomach appears grossly unremarkable. Unremarkable appearing duodenum. The large bowel loops are filled with fecal material and dense contents, likely due to constipation, with possible prior oral contrast intake. No free air and no ascites. No free intraperitoneal air is seen. Visualized osseous structures show degenerative changes of the spine and osteopenia. Left inguinal fat-containing hernia noted. The included lungs appear showing interstitial pulmonary changes with subpleural reticulations, honeycombing and basal pleural thickening. IMPRESSION: Urinary bladder focal polypoidal lesion at the right lateral wall measuring about (17 x 15 mm) with additional suspected another smaller focal lesion at the base on the left lateral wall. Cystoscopy is recommended to exclude the possibility of a neoplastic process. Right lower quadrant mesenteric fat stranding suggestive of inflammatory process is noted. Appendix is normal in size. Please correlate clinically. Stranding of the perirenal fat planes with mild fluid tracking downwards to the pelvis, the possibility of renal parenchymal disease could not be ruled out. Clinical and laboratory correlation is advised. Enlarged prostate indenting the urinary bladder base. Fatty liver with suspected areas of fatty sparing. [facility] ER was called at [phone] at 02:45 PM [facility], 03/21/2023 and the results are verbally communicated with Shayan Iglesias Electronically Signed by: Harris Wynn MD. (03/21/2023 15:50:34 EST)
[2023-03-21] MEDS ORDERED: DELTASONE 20 MG PO ONE (22:09)
[2023-03-21] MEDS ORDERED: DELTASONE 20 MG ONE (22:18)
[2023-03-21] MEDS ORDERED: ROCEPHIN 1 Gm-D5w 50 ml Bag** 1 G/50 ML IVPB IV STA (23:12)
[2023-03-21] MEDS ORDERED: Sodium Chloride 0.9% 1000 ML 1,000 ML IV SCH (23:15)
[2023-03-21] MEDS ORDERED: ROCEPHIN 1 Gm-D5w 50 ml Bag** 1 G/50 ML IVPB IV ONE (23:16)
[2023-03-21] MEDS ORDERED: Sodium Chloride 0.9% 1000 ML 1,000 ML ONE (23:16)
[2023-03-22 03:03] VITALS: BP 183/107; PULSE 70; RESP 22; O2SAT 93
== END 2023-03-22 03:35 | disposition short-term general hospital (02) ==
LOC: ED 09:34
DX: N32.9 Bladder disorder, unspecified (principal); N02.9 Recurrent and persistent hematuria with unspecified morphologic changes; I48.20 Chronic atrial fibrillation, unspecified; D72.829 Elevated white blood cell count, unspecified; I10 Essential (primary) hypertension; Z79.01 Long term (current) use of anticoagulants; Z79.899 Other long term (current) drug therapy; Z72.0 Tobacco use
CPT/HCPCS: 0241U; 36000; 36415; 74176; 80053; 81001; 83605; 83690; 83880; 84484; 85025; 85379; 85610; 85730; 87086; 93005; 96360; 99285; J0696; A9270-GY

== ENCOUNTER 2024-01-28 15:46 | Emergency (ER) | payer MEDICARE, OTHER ==
--- NOTE | 2024-01-28 15:52 | ERPHSYRPT ---
- History of Present Illness Time Seen by Provider: 01/28/24 15:52 Source: patient, family Exam Limitations: no limitations Physician History: This is an obese 78-year-old white male patient of primary care provider Dr. 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 Coreas, and twister tender paper Dr. Santos who presents to the emergency department by private vehicle accompanied by his spouse who provided additional, independent history. Patient's primary complaint has been dizziness and some weakness. He is also noticed swelling of both his feet and ankles that have increased. His primary care provided him with extra diuretics which she has taken. However, last evening and again today he noticed some dizziness, "head fog" and weakness present. His is concerned about dehydration. Patient also complains of generalized muscular cramping. The patient's spouse states that despite him increasing the diuretics, the patient has decreased his potassium and magnesium intake thinking that this was the cause of his cramping symptoms. Patient denies chest pain. Patient denies shortness of breath. Patient does have a history of atrial fibrillation and is taking Eliquis. Has a history of coronary artery disease and has had a cardiac stent placed. He also has a history of hypertension, COPD and gastroesophageal reflux disease as well as a history of TIAs. Patient continues to smoke tobacco cigarettes. Timing/Duration: day(s) (2 to 3 days), worse (Symptoms worse today) Severity: mild (To moderate) Character of Deficits: none Deficits: no difficulties Baseline/Normal Cognition: alert oriented x 3 Current Cognition: alert oriented x 3 Baseline Gait: walks w/o assistance Associated Symptoms: weakness, muscle spasms (Muscle crampinggeneralized), other (Dizziness) Allergies/Adverse Reactions: hydrocodone bitartrate [From Vicodin] Allergy (Mild, Verified 01/28/24 16:05) tolmetin [From Tolectin] Allergy (Verified 01/28/24 16:05) Home Medications: Ezetimibe 10 mg [Zetia 10 MG] 10 mg PO HS 02/12/12 [History] Lansoprazole [Prevacid] 30 mg PO DAILY 11/07/15 [History] Vit A/Vit C/Vit E/Zinc/Copper [Preservision Areds Softgel] 1 tablet PO DAILY 04/04/20 [History] Tamsulosin HCl 0.4 mg [Flomax 0.4 MG] 0.4 mg PO DAILY 12/26/20 [History] Allopurinol 100 mg [Zyloprim 100 mg] 100 mg PO HS 03/10/23 [History] Apixaban [Eliquis] 5 mg PO BID 03/10/23 [History] Bumetanide 2 mg PO BID 01/28/24 [History] Metolazone 2.5 mg [Zaroxolyn 2.5 MG] 2.5 mg PO UD 01/28/24 [History] Potassium Chloride 10 meq PO BID 01/28/24 [History] Sertraline HCl 50 mg [Zoloft 50 mg Tablet] 50 mg PO DAILY 01/28/24 [History] dilTIAZem HCL [Cartia Xt] 240 mg PO DAILY 01/28/24 [History] Hx Tetanus, Diphtheria Vaccination/Date Given: Yes Hx Influenza Vaccination/Date Given: No Hx Pneumococcal Vaccination/Date Given: No Travel Risk - International Travel Have you traveled outside of the country in past 3 weeks: No - Emerging Infectious Disease Are you exhibiting symptoms associated with any current EIDs: No - Review of Systems Constitutional: Weakness Eyes: No Symptoms Ears, Nose, & Throat: No Symptoms Respiratory: No Symptoms Cardiac: No Symptoms Abdominal/Gastrointestinal: No Symptoms Genitourinary Symptoms: No Symptoms Musculoskeletal: Other (Neurolyse muscle cramping) Neurological: Dizziness Psychological: No Symptoms Endocrine: No Symptoms Hematologic/Lymphatic: No Symptoms Immunological/Allergic: No Symptoms All Other Systems: Reviewed and Negative - Past Medical History Pertinent Past Medical History: Yes Neurological History: TIA ENT History: No Pertinent History Cardiac History: Arrhythmia, Coronary Artery Disease, Hypertension Respiratory History: COPD, Other Endocrine Medical History: No Pertinent History Musculoskeletal History: Arthritis, Other GI Medical History: GERD, Hemorrhoids History: No Pertinent History Psycho-Social History: No Pertinent History Male Reproductive Disorders: No Pertinent History Other Medical History: RETINOPATHY, LEFT SHOULDER SURGERY 30 YEARS AGO, AFIB, Black Lung. 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 - Past Surgical History Past Surgical History: Yes Cardiac: Cardiac Catheterization, Cardiac Stent Gastrointestinal: Hemorrhoidectomy Musculoskeletal: Orthopedic Surgery Other Surgical History: knee surgery, shoulder surgery - Social History Smoking Status: Current every day smoker How long have you smoked: 60 years Exposure to second hand smoke: No Drug Use: none Patient Lives Alone: No - Nursing Vital Signs Nursing Vital Signs: Initial Vital Signs Temperature 97.8 F 01/28/24 15:51 Pulse Rate 77 01/28/24 15:51 Blood Pressure 167/79 01/28/24 15:51 O2 Sat by Pulse Oximetry 97 01/28/24 15:51 Pain Scale Pain Intensity 6 - Elijah Coma Scale Best Eye Response ([place]): (4) open spontaneously Best Verbal Response ([place]): (5) oriented Best Motor Response ([place]): (6) obeys commands [place] Total: 15 - Physical Exam General Appearance: no apparent distress, alert, anxiety, obese Eye Exam: bilateral eye: normal inspection, PERRL, EOMI Ears, Nose, Throat Exam: normal ENT inspection, moist mucous membranes Neck Exam: normal inspection, non-tender, supple, full range of motion Respiratory: normal breath sounds, lungs clear, airway intact, No chest tenderness, No respiratory distress Cardiovascular: normal peripheral pulses, irregular Gastrointestinal: soft, normal bowel sounds, No tenderness Rectal Exam: not done Back Exam: normal inspection, normal range of motion, No CVA tenderness, No vertebral tenderness Extremity Exam: pedal edema (Lateral) Mental Status: alert, oriented x 3, 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 No evidence of acute ischemic changes on today's twelve-lead EKG. QTc is 467.) Ordered Tests: Active Orders 24 hr Category Date Time Status Can Filler STAT Care 01/28/24 16:10 Active EKG-ER Only STAT Care 01/28/24 16:09 Active IV Insertion STAT Care 01/28/24 16:09 Active Oxygen-ED Only Nasal Cannula 3 lpm Care 01/28/24 16:56 Active Pulse Oximetry (ED) STAT Care 01/28/24 16:09 Active HEAD WITHOUT CONTRAST [CT] Stat Exams 01/28/24 16:11 Completed BLOOD CULTURE Stat Lab 01/28/24 16:45 Received CBC W DIFF Stat Lab 01/28/24 16:35 Completed CMP Stat Lab 01/28/24 16:40 Completed ETHYL ALCOHOL Stat Lab 01/28/24 16:40 Completed MAGNESIUM Stat Lab 01/28/24 16:40 Completed NT PRO BNPII Stat Lab 01/28/24 16:40 Completed TROPONIN Q4H Lab 01/28/24 16:40 Completed TROPONIN Q4H Lab 01/28/24 20:15 Ordered TROPONIN Q4H Lab 01/29/24 00:15 Ordered UA W/RFX UR CULTURE Stat Lab 01/28/24 16:50 Completed Medication Summary Discontinued Medications Generic Name Dose Route Start Last Admin Trade Name Stacey PRN Reason Stop Dose Admin Acetaminophen 650 mg 01/28/24 17:02 01/28/24 17:04 Acetaminophen 325 Mg Tablet PO 01/28/24 17:03 650 mg STAT ONE Administration Acetaminophen Confirm 01/28/24 17:03 Acetaminophen 325 Mg Tablet Administered 01/28/24 17:04 Dose 650 mg .ROUTE .[employer] ONE Lab/Rad Data: Laboratory Result Diagrams 01/28/24 16:35 01/28/24 16:40 Laboratory Results 01/28/24 01/28/24 01/28/24 Range/Units 16:50 16:40 16:40 WBC (4.23-9.07) x10^3/uL RBC (4.63-6.08) x10^6/uL Hgb (13.7-17.5) g/dL Hct (40.1-51.0) % MCV (79.0-92.2) fL MCH (25.7-32.2) pg MCHC (32.3-36.5) g/dL RDW (11.6-14.4) % Plt Count (163-337) x10^3/uL MPV (9.4-12.4) fL Gran % (34.0-67.9) % Immature Gran % (Auto) (0.001-0.429) % Nucleat RBC Rel Count (0.00-0.2) % Eos # (Auto) (0.04-0.54) x10^3/uL Immature Gran # (Auto) (0.001-0.031) x10^3u/L Absolute Lymphs (auto) (1.32-3.57) x10^3/uL Absolute Monos (auto) (0.30-0.82) x10^3/uL Absolute Nucleated RBC (0.00-0.012) x10^3u/L Lymphocytes % (21.8-53.1) % Monocytes % (5.3-12.2) % Eosinophils % (0.8-7.0) % Basophils % (0.2-1.2) % Absolute Granulocytes (1.78-5.38) x10^3/uL Basophils # (0.01-0.08) x10^3/uL Sodium 133 L (135-145) mmol/L Potassium 3.6 (3.5-5.1) mmol/L Chloride 86 L (98-107) mmol/L Carbon Dioxide 38 H (22-30) mmol/L Anion Gap 13.3 (5-15) MEQ/L BUN 37 H (9-20) mg/dL Creatinine 2.25 H (0.66-1.25) mg/dL Estimated GFR 29.3 ML/MIN Glucose 92 (74-106) mg/dL Calcium 8.9 (8.4-10.2) mg/dL Magnesium 2.5 H (1.6-2.3) mg/dL Total Bilirubin 0.30 (0.2-1.3) mg/dL AST 34 (17-59) U/L ALT 24 (0-50) U/L Alkaline Phosphatase 124 (38-126) U/L Troponin I < 0.012 (0.000-0.033) ng/mL NT-Pro-B Natriuret Pep 622 (<300) pg/mL Serum Total Protein 8.5 H (6.3-8.2) g/dL Albumin 4.3 (3.5-5.0) g/dL Urine Color Yellow (Yellow) Urine Appearance Clear (Clear) Urine pH 7.5 (4.6-8.0) Ur Specific [place] 1.010 (1.005-1.030) Urine Protein Negative (Negative) Urine Glucose (UA) Negative (Negative) mg/dL Urine Ketones Negative (Negative) Urine Blood Negative (Negative) Urine Nitrite Negative (Negative) Urine Bilirubin Negative (Negative) Urine Urobilinogen 0.2 (0.2) mg/dL Ur Leukocyte Esterase Negative (Negative) U Hyaline Cast (Auto) NONE SEEN (0-2) /LPF Urine Microscopic RBC 0-2 (0-5) /HPF Urine Microscopic WBC 0-2 (0-5) /HPF Ur Epithelial Cells None Seen (None Seen) /HPF Urine Bacteria None Seen (None Seen) /HPF Urine Culture Reflexed NO (NO) Ethyl Alcohol < 10 (0-10) mg/dL 01/27/ Range/Units 16:35 WBC 9.8 H (4.23-9.07) x10^3/uL RBC 3.95 L (4.63-6.08) x10^6/uL Hgb 9.3 L (13.7-17.5) g/dL Hct 30.5 L (40.1-51.0) % MCV 77.2 L (79.0-92.2) fL MCH 23.5 L (25.7-32.2) pg MCHC 30.5 L (32.3-36.5) g/dL RDW 16.0 H (11.6-14.4) % Plt Count 450 H (163-337) x10^3/uL MPV 8.6 L (9.4-12.4) fL Gran % 59.4 (34.0-67.9) % Immature Gran % (Auto) 0.4 (0.001-0.429) % Nucleat RBC Rel Count 0.0 (0.00-0.2) % Eos # (Auto) 0.21 (0.04-0.54) x10^3/uL Immature Gran # (Auto) 0.04 H (0.001-0.031) x10^3u/L Absolute Lymphs (auto) 2.48 (1.32-3.57) x10^3/uL Absolute Monos (auto) 1.21 H (0.30-0.82) x10^3/uL Absolute Nucleated RBC 0.00 (0.00-0.012) x10^3u/L Lymphocytes % 25.4 (21.8-53.1) % Monocytes % 12.4 H (5.3-12.2) % Eosinophils % 2.2 (0.8-7.0) % Basophils % 0.2 (0.2-1.2) % Absolute Granulocytes 5.80 H (1.78-5.38) x10^3/uL Basophils # 0.02 (0.01-0.08) x10^3/uL Sodium (135-145) mmol/L Potassium (3.5-5.1) mmol/L Chloride (98-107) mmol/L Carbon Dioxide (22-30) mmol/L Anion Gap (5-15) MEQ/L BUN (9-20) mg/dL Creatinine (0.66-1.25) mg/dL Estimated GFR ML/MIN Glucose (74-106) mg/dL Calcium (8.4-10.2) mg/dL Magnesium (1.6-2.3) mg/dL Total Bilirubin (0.2-1.3) mg/dL AST (17-59) U/L ALT (0-50) U/L Alkaline Phosphatase (38-126) U/L Troponin I (0.000-0.033) ng/mL NT-Pro-B Natriuret Pep (<300) pg/mL Serum Total Protein (6.3-8.2) g/dL Albumin (3.5-5.0) g/dL Urine Color (Yellow) Urine Appearance (Clear) Urine pH (4.6-8.0) Ur Specific [place] (1.005-1.030) Urine Protein (Negative) Urine Glucose (UA) (Negative) mg/dL Urine Ketones (Negative) Urine Blood (Negative) Urine Nitrite (Negative) Urine Bilirubin (Negative) Urine Urobilinogen (0.2) mg/dL Ur Leukocyte Esterase (Negative) U Hyaline Cast (Auto) (0-2) /LPF Urine Microscopic RBC (0-5) /HPF Urine Microscopic WBC (0-5) /HPF Ur Epithelial Cells (None Seen) /HPF Urine Bacteria (None Seen) /HPF Urine Culture Reflexed (NO) Ethyl Alcohol (0-10) mg/dL - Progress Progress: improved, re-examined Progress Note: 01/28/24 16:41 My medical decision making and the assignment of moderate complexity to this patient's medical issue today is based on review of the patient's past medical history, review of the patient's medication list, reviewed patient drug allergy list, history present illness and physical findings on examination. The workup in this patient includes event of a intravenous line, CBC, CMP, magnesium level, CT scan of the head, twelve-lead EKG, urinalysis, troponin level, BNP The differential diagnosis includes but is not limited to dehydration, electrolyte abnormalities, renal failure, CHF exacerbation, arrhythmia, myocardial infarction 01/28/24 18:58 I interpreted the patient's laboratory data results. I also compared them to studies that performed in April 2023. Of significance, the patient's hemoglobin in April 2023 was 13.6. Today's value is decreased to 9.3. In April 2023, the platelet count was 246 and today's value was 450. There is been no change in the patient's GFR level since October 2023. He has a history of chronic renal disease. 01/28/24 18:[address] scan of the head was interpreted by the radiologist and I reviewed the impression. The impression states normal CT scan of the head without contrast. Counseled pt/family regarding: lab results, diagnosis, rad results Medical Desision Making - Independent Historian Additional History obtained from: Spouse - Diagnostic Testing Diagnostic test were ordered, analyzed, and reviewed by me: Yes Radiological Interpretation: Reviewed by me, Teleradiologist Report - Risk of complications Low Risk: Low risk of morbidity from additional dx testing or treatment - Departure Departure Disposition: Home Clinical Impression: Dizziness, Pedal edema, Chronic renal disease, Anemia Condition: Stable Critical Care Time: No Referrals: MALAIKA ROCHE MD [Primary Care Provider] - Follow up/PCP as directed Additional Instructions: Drink plenty of fluids. Take all your medications as prescribed. On 01/31/2024, call your primary care provider, twister tender paper (Dr. Santos) and your appliance painter and refinisher to discuss with them the most recent symptoms and to tell them you came to the emergency department for evaluation.
[2024-01-28 16:05] VITALS: TEMP 97.8
[2024-01-28 16:58] LABS: BASOPHIL % 0.2 % (0.2-1.2); Basophil (Absolute #) 0.02 x10^3/uL (0.01-0.08); Eosinophil % 2.2 % (0.8-7.0); Eosinophil (Absolute #) 0.21 x10^3/uL (0.04-0.54); Hematocrit 30.5 % (40.1-51.0); Hemoglobin 9.3 g/dL (13.7-17.5); IMMATURE GRAN # 0.04 x10^3u/L (0.001-0.031); IMMATURE GRAN % 0.4 % (0.001-0.429); Lymphocyte (Absolute #) 2.48 x10^3/uL (1.32-3.57); Lymphocytes % 25.4 % (21.8-53.1); Mean Cell Volume 77.2 fL (79.0-92.2); Mean Corpuscular Hemoglobin 23.5 pg (25.7-32.2); Mean Corpuscular Hgb Concent. 30.5 g/dL (32.3-36.5); Mean Platelet Volume 8.6 fL (9.4-12.4); Monocyte (Absolute #) 1.21 x10^3/uL (0.30-0.82); Monocytes % 12.4 % (5.3-12.2); Neutrophil % 59.4 % (34.0-67.9); Platelet Count 450 x10^3/uL (163-337); Red Blood Count 3.95 x10^6/uL (4.63-6.08); White Blood Count 9.8 x10^3/uL (4.23-9.07)
[2024-01-28] MEDS ORDERED: TYLENOL 325 MG ONE (17:03)
[2024-01-28] MEDS: TYLENOL 325 MG PO ONE (17:04)
--- NOTE | 2024-01-28 17:10 | XRAY ---
Indication: Dizziness. "Head fog." No known injury. Multiple contiguous images obtained through the head without contrast. Comparison: None Normal appearing brain parenchyma, ventricles, bony calvarium for patient's age. Visualized paranasal sinuses and mastoid air cells are clear. Impression: Normal CT head without contrast exam.
[2024-01-28 17:12] LABS: ALBUMIN 4.3 g/dL (3.5-5.0); ALKALINE PHOSPHATASE 124 U/L (38-126); ANION GAP 13.3 MEQ/L (5-15); BLOOD UREA NITROGEN 37 mg/dL (9-20); CHLORIDE 86 mmol/L (98-107); Calcium 8.9 mg/dL (8.4-10.2); Carbon Dioxide 38 mmol/L (22-30); Creatinine 1 2.25 mg/dL (0.66-1.25); EST GLOMERULAR FILTRATION RATE 29.3 ML/MIN; ETHYL ALCOHOL < 10 mg/dL (0-10); Glucose 92 mg/dL (74-106); MAGNESIUM 2.5 mg/dL (1.6-2.3); Potassium 3.6 mmol/L (3.5-5.1); SGOT/AST 34 U/L (17-59); SGPT/ALT 24 U/L (0-50); SODIUM 133 mmol/L (135-145); Total Protein 8.5 g/dL (6.3-8.2)
[2024-01-28 17:25] LABS: NT PRO BNPII 622 pg/mL (<300); TROPONIN < 0.012 ng/mL (0.000-0.033)
[2024-01-28 18:05] LABS: Appearance Clear (Clear); Bacteria None Seen /HPF (None Seen); Bilirubin Negative (Negative); Blood Negative (Negative); Epithelial Cells None Seen /HPF (None Seen); Glucose, Urine Negative (Negative); Hyaline Casts NONE SEEN /LPF (0-2); Ketones Negative (Negative); Leukocyte Esterase Negative (Negative); Nitrite Negative (Negative); Ph 7.5 (4.6-8.0); Protein,Urine Dip Negative (Negative); RBC 0-2 /HPF (0-5); Urobilinogen 0.2 mg/dL (0.2); WBC 0-2 /HPF (0-5)
[2024-01-28] MEDS ORDERED: Ativan 2 MG/1 ML VIAL ONE (19:49)
[2024-01-28] MEDS: Ativan 2 MG/1 ML VIAL IV ONE (19:52)
[2024-01-28 20:06] VITALS: BP 150/73; PULSE 69; RESP 20; O2SAT 94
== END 2024-01-28 20:10 | disposition home or self-care (01) ==
LOC: ED 15:46
DX: I12.9 Hypertensive chronic kidney disease with stage 1 through stage 4 chronic kidney disease, or unspecified chronic kidney disease (principal); N18.9 Chronic kidney disease, unspecified; D64.9 Anemia, unspecified; R42 Dizziness and giddiness; R60.0 Localized edema; M62.838 Other muscle spasm; R53.1 Weakness; Z79.01 Long term (current) use of anticoagulants; Z79.899 Other long term (current) drug therapy; Z72.0 Tobacco use
CPT/HCPCS: 36415; 70450; 80053; 81001; 82077; 83735; 83880; 84484; 85025; 87040; 93005; 93041; 94760; 96372; 99284; 99285; J2060; A9270-GY

== ENCOUNTER 2024-11-20 11:17 | Inpatient (IN) | payer BLACK LUNG, MEDICARE, OTHER ==
[2024-11-20] MEDS ORDERED: DUONEB 0.5-3 MG/3 ml Neb IH ONE (11:41)
[2024-11-20] MEDS: DUONEB 0.5-3 MG/3 ml Neb IH ONE (11:56)
--- NOTE | 2024-11-20 11:59 | ERPHSYRPT ---
- History of Present Illness Time Seen by Provider: 11/20/24 11:26 Source: patient, family Exam Limitations: no limitations Patient Subjective Stated Complaint: pt states that on wednesday he went to the dr with a cold and was dx with covid, took paxlovid for 5 days and now feels worse. Triage Nursing Assessment: pt is alert/oriented, tachy, febrile, rapid short resp, 4lnc is baseline, shivering Physician History: Patient is here with shortness of breath, COPD exacerbation, testing positive for COVID last week.Patient was started on Paxlovid and was feeling better.However, over the last 24 to 48 hours he started feeling worse. He was having increasing heart rate earlier this morning therefore his gave him 240 mg of diltiazem orally. Patient has known history of CHF and COPD. Although patient is testing positive for sepsis including infection, heart rate and temperature, we will hold off on fluid bolus secondary to this. Patient was follows with cardiology, Dr. Ancelmo Coreas MD. Allergies/Adverse Reactions: hydrocodone bitartrate [From Vicodin] Allergy (Mild, Verified 11/20/24 11:33) Hives tolmetin [From Tolectin] Allergy (Verified 11/20/24 11:33) Nausea and Vomiting Home Medications: Ezetimibe 10 mg [Zetia 10 MG] 10 mg PO HS 02/12/12 [History] Lansoprazole [Prevacid] 30 mg PO DAILY 11/07/15 [History] Vit A/Vit C/Vit E/Zinc/Copper [Preservision Areds Softgel] 1 tablet PO DAILY 04/04/20 [History] Tamsulosin HCl 0.4 mg [Flomax 0.4 MG] 2 cap PO HS 12/26/20 [History] Allopurinol 100 mg [Zyloprim 100 mg] 100 mg PO HS 03/10/23 [History] Bumetanide 2 mg PO BID 01/28/24 [History] Potassium Chloride 10 meq PO BID 01/28/24 [History] Sertraline HCl 50 mg [Zoloft 50 mg Tablet] 50 mg PO HS 01/28/24 [History] dilTIAZem HCL [Cartia Xt] 240 mg PO DAILY 11/22/24 [History] Budesonide/Glycopyr/Formoterol [Breztri Aerosphere Inhaler] 2 puff IH BID 09/14/24 [History] Sildenafil Citrate 20 mg PO TID 09/14/24 [History] Hx Tetanus, Diphtheria Vaccination/Date Given: Yes Hx Influenza Vaccination/Date Given: Yes Hx Pneumococcal Vaccination/Date Given: Yes Travel Risk - International Travel Have you traveled outside of the country in past 3 weeks: No - Emerging Infectious Disease Are you exhibiting symptoms associated with any current EIDs: No Symptoms: Cough: New Onset - Past Medical History Pertinent Past Medical History: Yes Neurological History: TIA ENT History: No Pertinent History Cardiac History: Arrhythmia, Coronary Artery Disease, Hypertension Respiratory History: COPD, Other Endocrine Medical History: No Pertinent History Musculoskeletal History: Arthritis, Other GI Medical History: GERD History: No Pertinent History Psycho-Social History: No Pertinent History Male Reproductive Disorders: No Pertinent History Other Medical History: RETINOPATHY, LEFT SHOULDER SURGERY 30 YEARS AGO, AFIB, Black Lung. [place]: Dr. Coreas - Past Surgical History Past Surgical History: Yes Neuro Surgical History: No Pertinent History Cardiac: Cardiac Catheterization, Cardiac Stent, Pacemaker Respiratory: No Pertinent History Gastrointestinal: Hemorrhoidectomy Genitourinary: No Pertinent History Musculoskeletal: Orthopedic Surgery Male Surgical History: No Pertinent History Other Surgical History: knee surgery, shoulder surgery Significant Family History: no pertinent family hx - Social History Smoking Status: Former smoker How long have you smoked: 60 years Exposure to second hand smoke: No - Social Determinants of Health Will the patient participate in the screening: Declined to provide - Nursing Vital Signs Nursing Vital Signs: Initial Vital Signs Temperature 99.5 F 11/20/24 11:19 Pulse Rate 105 H 11/20/24 11:19 Respiratory Rate 22 11/20/24 11:19 Blood Pressure 155/92 11/20/24 11:19 Pain Scale Pain Intensity 10 - Physical Exam SpO2: 97 Ordered Tests: Active Orders 24 hr Category Date Time Status Admit as Inpatient ROUTINE Care 11/20/24 16:25 Active Call Admit Doctor for Orders ON ADMISSION Care 11/20/24 16:25 Active Artist Scientific STAT Care 11/20/24 11:35 Active Code Status Order ROUTINE Care 11/20/24 16:25 Active EKG-ER Only STAT Care 11/20/24 11:34 Active IV Insertion STAT Care 11/20/24 11:34 Active Telemetry q6h Care 11/20/24 16:27 Active Heart-Healthy Diet Diet 11/21/24 Breakfast Active ABDOMEN AND PELVIS W CONTRAST [CT] Stat Exams 11/20/24 13:17 Completed CHEST 1 VIEW (PORTABLE) Stat Exams 11/20/24 11:35 Completed CHEST WITH CONTRAST [CT] Stat Exams 11/20/24 13:17 Completed BLOOD CULTURE Stat Lab 11/20/24 13:13 Received CBC W DIFF Stat Lab 11/20/24 11:50 Completed CMP Stat Lab 11/20/24 11:50 Completed NT PRO BNPII Stat Lab 11/20/24 11:50 Completed PROTIME WITH INR Stat Lab 11/20/24 11:50 Completed TROPONIN Q4H Lab 11/20/24 11:50 Completed TROPONIN Q4H Lab 11/20/24 15:10 Completed TROPONIN Q4H Lab 11/20/24 19:45 Ordered Pulse Oximetry CONTINUOUS RT 11/20/24 16:27 Active Respiratory Therapy Assessment DAILY RT 11/20/24 11:56 Active Respiratory Therapy Consult ONCE RT 11/20/24 16:25 Active Transfer Order Routine Transfer 11/20/24 Ordered Medication Summary Discontinued Medications Generic Name Dose Route Start Last Admin Trade Name Freq PRN Reason Stop Dose Admin Acetaminophen 1,000 mg 11/20/24 12:03 11/20/24 12:15 Acetaminophen 500 Mg Tablet PO 11/20/24 12:04 1,000 mg STAT STA Administration Acetaminophen Confirm 11/20/24 12:03 Acetaminophen 500 Mg Tablet Administered 11/20/24 12:04 Dose 1,000 mg .ROUTE .STK-MED ONE Albuterol/Ipratropium 3 ml 11/20/24 11:34 11/20/24 11:56 Ipratropium/Albuterol Sulfate 3 Ml Ampul.Neb IH 11/20/24 11:35 3 ml STAT ONE Administration Albuterol/Ipratropium Confirm 11/20/24 11:41 Ipratropium/Albuterol Sulfate 3 Ml Ampul.Neb Administered 11/20/24 11:42 Dose 3 ml IH .STK-MED ONE Azithromycin Confirm 11/20/24 12:03 Azithromycin Inj Administered 11/20/24 12:04 Dose 500 mg IV .STK-MED ONE Methylprednisolone Sodium 0 mg 11/20/24 11:34 11/20/24 12:15 Succinate 125 mg/ Sterile IV 11/20/24 11:35 125 mg Water 2 ml STAT ONE Administration Azithromycin 500 mg/ Sodium 250 mls @ 250 mls/hr 11/20/24 11:34 11/20/24 13:15 Chloride IV 11/20/24 12:33 Infused STAT STA Infusion Sodium Chloride Confirm 11/20/24 12:04 Sodium Chloride 0.9% 250 Ml Administered 11/20/24 12:05 Dose 250 mls @ ud IV .STK-MED ONE Piperacillin Sod/Tazobactam 100 mls @ 200 mls/hr 11/20/24 12:17 11/20/24 15:42 Sod 4.5 gm/ Sodium Chloride IV 11/20/24 12:46 Infused STAT STA Infusion Sodium Chloride Confirm 11/20/24 13:37 Sodium Chloride 0.9% Administered 11/20/24 13:38 Dose 100 mls @ ud .ROUTE .STK-MED ONE Methylprednisolone Sodium Succinate Confirm 11/20/24 12:03 Methylprednis Sod Succ 125 Mg/2 Ml Vial Administered 11/20/24 12:04 Dose 125 mg .ROUTE .STK-MED ONE Ondansetron HCl 8 mg 11/20/24 12:03 11/20/24 13:46 Ondansetron Hcl 4 Mg/2 Ml Vial IV 11/20/24 12:04 8 mg STAT ONE Administration Ondansetron HCl Confirm 11/20/24 13:36 Ondansetron Hcl 4 Mg/2 Ml Vial Administered 11/20/24 13:37 Dose 4 mg .ROUTE .STK-MED ONE Piperacillin Sod/Tazobactam Sod Confirm 11/20/24 13:36 Piperacillin/Tazobactam Sodium 4.5 Gm Vial Administered 11/20/24 13:37 Dose 4.5 gm IV .STK-MED ONE Piperacillin Sod/Tazobactam Sod Confirm 11/20/24 13:37 Piperacillin/Tazobactam Sodium 4.5 Gm Vial Administered 11/20/24 13:38 Dose 4.5 gm IV .STK-MED ONE Sterile Water Confirm 11/20/24 12:03 Water For Injection,Sterile 10 Ml Vial Administered 11/20/24 12:04 Dose 10 ml IJ .STK-MED ONE Lab/Rad Data: Laboratory Result Diagrams 11/20/24 11:50 09/15/25 11:50 Laboratory Results 11/20/24 11/20/24 11/20/24 Range/Units 15:10 11:55 11:50 WBC (4.23-9.07) x10^3/uL RBC (4.63-6.08) x10^6/uL Hgb (13.7-17.5) g/dL Hct (40.1-51.0) % MCV (79.0-92.2) fL MCH (25.7-32.2) pg MCHC (32.3-36.5) g/dL RDW (11.6-14.4) % Plt Count (163-337) x10^3/uL MPV (9.4-12.4) fL Gran % (34.0-67.9) % Immature Gran % (Auto) (0.001-0.429) % Nucleat RBC Rel Count (0.00-0.2) % Eos # (Auto) (0.04-0.54) x10^3/uL Immature Gran # (Auto) (0.001-0.031) x10^3u/L Absolute Lymphs (auto) (1.32-3.57) x10^3/uL Absolute Monos (auto) (0.30-0.82) x10^3/uL Absolute Nucleated RBC (0.00-0.012) x10^3u/L Lymphocytes % (21.8-53.1) % Monocytes % (5.3-12.2) % Eosinophils % (0.8-7.0) % Basophils % (0.2-1.2) % Absolute Granulocytes (1.78-5.38) x10^3/uL Basophils # (0.01-0.08) x10^3/uL PT (9.4-12.5) SECONDS INR (0.8-3.0) Sodium (135-145) mmol/L Potassium (3.5-5.1) mmol/L Chloride (98-107) mmol/L Carbon Dioxide (22-30) mmol/L Anion Gap (5-15) MEQ/L BUN (9-20) mg/dL Creatinine (0.66-1.25) mg/dL Estimated GFR ML/MIN Glucose (74-106) mg/dL Calcium (8.4-10.2) mg/dL Total Bilirubin (0.2-1.3) mg/dL AST (17-59) U/L ALT (0-50) U/L Alkaline Phosphatase (38-126) U/L Troponin I 0.030 0.021 (0.000-0.033) ng/mL NT-Pro-B Natriuret Pep (<300) pg/mL Serum Total Protein (6.3-8.2) g/dL Albumin (3.5-5.0) g/dL Influenza Type A Ag NEGATIVE (NEGATIVE) Influenza Type B Ag NEGATIVE (NEGATIVE) RSV (PCR) NEGATIVE (NEGATIVE) SARS-CoV-2 (PCR) NEGATIVE (NEGATIVE) 11/20/24 11/20/24 11/20/24 Range/Units 11:50 11:50 11:50 WBC 16.5 H (4.23-9.07) x10^3/uL RBC 5.05 (4.63-6.08) x10^6/uL Hgb 16.0 (13.7-17.5) g/dL Hct 48.6 (40.1-51.0) % MCV 96.2 H (79.0-92.2) fL MCH 31.7 (25.7-32.2) pg MCHC 32.9 (32.3-36.5) g/dL RDW 13.5 (11.6-14.4) % Plt Count 238 (163-337) x10^3/uL MPV 8.6 L (9.4-12.4) fL Gran % 86.2 H (34.0-67.9) % Immature Gran % (Auto) 0.8 H (0.001-0.429) % Nucleat RBC Rel Count 0.1 (0.00-0.2) % Eos # (Auto) 0.02 L (0.04-0.54) x10^3/uL Immature Gran # (Auto) 0.14 H (0.001-0.031) x10^3u/L Absolute Lymphs (auto) 1.12 L (1.32-3.57) x10^3/uL Absolute Monos (auto) 0.99 H (0.30-0.82) x10^3/uL Absolute Nucleated RBC 0.02 H (0.00-0.012) x10^3u/L Lymphocytes % 6.8 L (21.8-53.1) % Monocytes % 6.0 (5.3-12.2) % Eosinophils % 0.1 L (0.8-7.0) % Basophils % 0.1 L (0.2-1.2) % Absolute Granulocytes 14.19 H (1.78-5.38) x10^3/uL Basophils # 0.02 (0.01-0.08) x10^3/uL PT 10.5 (9.4-12.5) SECONDS INR 0.96 (0.8-3.0) Sodium 132 L (135-145) mmol/L Potassium 3.9 (3.5-5.1) mmol/L Chloride 86 L (98-107) mmol/L Carbon Dioxide 33 H (22-30) mmol/L Anion Gap 15.9 H (5-15) MEQ/L BUN 40 H (9-20) mg/dL Creatinine 1.72 H (0.66-1.25) mg/dL Estimated GFR 40.2 ML/MIN Glucose 176 H (74-106) mg/dL Calcium 9.7 (8.4-10.2) mg/dL Total Bilirubin 0.60 (0.2-1.3) mg/dL AST 34 (17-59) U/L ALT 39 (0-50) U/L Alkaline Phosphatase 157 H (38-126) U/L Troponin I (0.000-0.033) ng/mL NT-Pro-B Natriuret Pep 355 (<300) pg/mL Serum Total Protein 7.5 (6.3-8.2) g/dL Albumin 4.7 (3.5-5.0) g/dL Influenza Type A Ag (NEGATIVE) Influenza Type B Ag (NEGATIVE) RSV (PCR) (NEGATIVE) SARS-CoV-2 (PCR) (NEGATIVE) - Progress Progress: improved Progress Note: 11/20/24 16:30 Differential diagnosis includes: PNA, STEMI, NSTEMI, other infection, musculoskeletal pain, pneumothorax, Post COVID-pneumonia - We'll obtain basic labs, fluids, EKG, troponin, chest x-ray - EKG shows atrial fibrillation Rate of 113 - O2 saturations consistently greater than 95% on 3L - CXR shows pneumonia and volume overload Reevaluation: Patient does have a slight bump in his creatinine at 1.72, GFR at 40. I did discuss risks and benefits of obtaining a CTA today I would obtain a CTA looking for any pulmonary embolism given his recent COVID diagnosis. Patient's viral swabs were negative. First troponin is negative, repeat troponin does show slight rise however still not within our positive range. I did explain the risks and benefits, they did talk to their corporate librarian, Dr. Ancelmo Coreas MD. He did state that they should get the CTA to ensure that there was no emergency today. See full read above, CTA demonstrates multilobar pneumonia. Patient will need to be admitted for this, patient has already received Zosyn, azithromycin in the emergency department. I am not given fluids yet given the history of congestive heart failure and possible volume overload on chest x-ray. I did discuss this with Dr. Lyman. We discussed the case in detail, she did accept the patient to her service. Plan for continued close ER monitoring until patient is admitted to the hospital Counseled pt/family regarding: lab results, diagnosis, need for follow-up, rad results - Departure Departure Disposition: In-patient Admission Clinical Impression: Pneumonia, Post-acute sequelae of COVID-19 (PASC), Acute and chronic respiratory failure with hypoxia Condition: Stable Critical Care Time: No Referrals: MALAIKA ROCHE MD [Primary Care Provider, [facility]] - Follow up/PCP as directed
--- NOTE | 2024-11-20 12:01 | XRAY ---
Indication: Pneumonia. Comparison: March 10, 2023 Portable chest demonstrates new cardiomegaly, central vascular prominence, and pulmonary edema possibly mild/early cardiac decompensation. Superimposed pneumonia not completely excluded. No consolidation/large effusion. Bony thorax intact again with osteopenia and degenerative changes.
[2024-11-20] MEDS ORDERED: Sterile H2O 10 ml IJ ONE ×2 (12:03→22:41)
[2024-11-20] MEDS ORDERED: ZITHROMAX IV IV ONE (12:03)
[2024-11-20] MEDS ORDERED: TYLENOL EXTRA STRENGTH 500 MG ONE (12:03)
[2024-11-20 12:06] LABS: BASOPHIL % 0.1 % (0.2-1.2); Basophil (Absolute #) 0.02 x10^3/uL (0.01-0.08); Eosinophil (Absolute #) 0.02 x10^3/uL (0.04-0.54); Hematocrit 48.6 % (40.1-51.0); Hemoglobin 16.0 g/dL (13.7-17.5); IMMATURE GRAN # 0.14 x10^3u/L (0.001-0.031); IMMATURE GRAN % 0.8 % (0.001-0.429); Lymphocyte (Absolute #) 1.12 x10^3/uL (1.32-3.57); Mean Corpuscular Hemoglobin 31.7 pg (25.7-32.2); Mean Corpuscular Hgb Concent. 32.9 g/dL (32.3-36.5); Monocyte (Absolute #) 0.99 x10^3/uL (0.30-0.82); NUCLEATED RBC # 0.02 x10^3u/L (0.00-0.012); NUCLEATED RBC % 0.1 % (0.00-0.2); Platelet Count 238 x10^3/uL (163-337); Red Blood Count 5.05 x10^6/uL (4.63-6.08); White Blood Count 16.5 x10^3/uL (4.23-9.07)
[2024-11-20] MEDS: ZITHROMAX IV*** 500 MG in Sodium Chloride 0.9% 250 ML 250 ML IV STA (12:14)
[2024-11-20] MEDS: solu-MEDROL 125 MG, Sterile H2O 10 ml 2 ML IV ONE (12:15)
[2024-11-20] MEDS: TYLENOL EXTRA STRENGTH 500 MG PO STA (12:15)
[2024-11-20 12:18] LABS: INR 0.96 (0.8-3.0); PROTIME 10.5 SECONDS (9.4-12.5)
[2024-11-20 12:27] LABS: Calcium 9.7 mg/dL (8.4-10.2); Carbon Dioxide 33.0 mmol/L (22-30); Creatinine 1 1.72 mg/dL (0.66-1.25); EST GLOMERULAR FILTRATION RATE 40.2 ML/MIN; Glucose 176.0 mg/dL (74-106); NT PRO BNPII 355.0 pg/mL (<300); Potassium 3.9 mmol/L (3.5-5.1); SGOT/AST 34.0 U/L (17-59); SGPT/ALT 39.0 U/L (0-50); Total Protein 7.5 g/dL (6.3-8.2)
[2024-11-20 12:43] LABS: INFLUENZA A NEGATIVE (NEGATIVE); INFLUENZA B NEGATIVE (NEGATIVE); RESPIRATORY SYNCTIAL VIRUS NEGATIVE (NEGATIVE); SARS-CoV-2 Xpert Express NEGATIVE (NEGATIVE)
[2024-11-20] MEDS ORDERED: PIPERACILLIN/TAZOBACTAM IV ONE ×2 (13:36→13:37)
[2024-11-20] MEDS ORDERED: Zofran 4 MG/2 ML VIAL ONE (13:36)
[2024-11-20] MEDS: Zofran 4 MG/2 ML VIAL IV ONE (13:46)
--- NOTE | 2024-11-20 15:22 | XRAY ---
Indication: Short of breath. Recent COVID. Pulmonary embolus. Multiple contiguous axial images obtained through the chest using 80 cc Isovue 370 contrast and PE protocol. Comparison: September 14, 2024. Good opacification pulmonary arteries to include lobar and segmental branches. No pulmonary embolus. Heart not enlarged again with right apical wireless pacemaker device, mild scattered coronary calcifications, and prominent epicardiac fat. Aorta again mildly arteriosclerotic without aneurysm/dissection. Stable small cm/subcentimeter subcarinal nodes, none pathologically enlarged. Again incidental small right hilar calcified node. Lungs demonstrates new mild posterior right lower, minimal peripheral left upper, and minimal posterior left lower lobe consolidating/nonconsolidating airspace disease without effusion. Remaining lungs again demonstrates diffuse centrilobular pulmonary emphysema with scattered fibrosis/scarring, tiny right lung calcified granulomas, and mild bilateral pleural thickening. Bony thorax intact again with osteopenia and mild degenerative changes throughout spine. CT abdomen/pelvis reported separately. Impression: 1. Negative pulmonary embolus. 2. New bilateral lower lobe and left upper lobe peripheral consolidating/nonconsolidating airspace disease. 3. Chronic findings including pulmonary emphysema, pulmonary fibrosis/scarring, bilateral pleural thickening, arteriosclerotic disease, chronic bony findings, and old granulomatous disease.
--- NOTE | 2024-11-20 15:26 | XRAY ---
Indication: Left flank pain. Bladder cancer. Multiple contiguous axial images obtained through the abdomen and pelvis using 80 cc Isovue 370 contrast. Comparison: August 08, 2024 CT chest reported separately. Noncontrasted stomach and bowel loops appear nonobstructed with normal appendix. There is worsening mild diffuse scattered colonic fecal debris throughout. Again enlarged prostate gland and tiny splenic calcified granulomas. Both kidneys enhance and excrete. No free fluid/air. Remaining liver, gallbladder, pancreas, spleen, adrenal glands, kidneys, ureters, and bladder are unremarkable. There remains mild scattered aortoiliac calcifications. No AAA or pathologic retroperitoneal lymphadenopathy. Osseous structures intact again with osteopenia and mild degenerative changes throughout spine. Impression: 1. Worsening mild diffuse fecal stasis. 2. Chronic findings including enlarged prostate gland, arteriosclerotic disease, chronic bony findings, and old granulomatous disease. 3. Remaining CT abdomen/pelvis with contrast exam continues to be negative.
--- NOTE | 2024-11-20 17:33 | PCM.HP ---
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 He tested positive for COVID-19 on 11/14/24 and was prescribed a five-day course of Paxlovid, which he completed on 11/18/24. Although he initially improved, over the last couple of days he has developed worsening shortness of breath, now associated with cough producing greenish sputum, subjective fevers and chills, and diarrhea that began yesterday. He is normally on 34 liters of supplemental oxygen at home. This morning, his noted an increased heart rate and gave him 240 mg of oral diltiazem prior to arrival. Patient states that he is scheduled for cystoscopy with TURBT. On arrival to the ED, the patient was febrile, tachycardic, and hypertensive. Chest X-ray demonstrated new cardiomegaly with central vascular prominence and pulmonary edema, raising concern for early cardiac decompensation. Superimposed pneumonia could not be excluded, though there was no definite consolidation or pleural effusion. The bony thorax again showed osteopenia and degenerative changes. CT abdomen revealed worsening mild diffuse fecal stasis along with chronic findings of an enlarged prostate, arteriosclerotic disease, old granulomatous disease, and chronic bony changes; otherwise, the study was negative. CT chest with contrast ruled out pulmonary embolism but demonstrated new bilateral lower lobe and left upper lobe peripheral consolidating and nonconsolidating airspace disease, concerning for pneumonia, on a background of chronic emphysematous and fibrotic lung disease with bilateral pleural thickening, arteriosclerosis, and prior granulomatous changes. Laboratory findings were notable for leukocytosis with WBC 16.5, hyponatremia with Na 132, hypochloremia at 86, elevated bicarbonate at 33, anion gap 15.9, BUN 40, creatinine 1.72, and alkaline phosphatase 157. Respiratory viral panel was negative for COVID, influenza, and RSV. In the ED, he was treated with intravenous Solu-Medrol, piperacillintazobactam, and azithromycin. - Review of Systems Constitutional: Fever, Chills, Weakness Eyes: No Symptoms Ears, Nose, & Throat: Nose Congestion, Sinus Drainage Respiratory: Cough, Short Of Breath, Wheezing Cardiac: No Symptoms Abdominal/Gastrointestinal: No Symptoms Genitourinary Symptoms: No Symptoms Musculoskeletal: No Symptoms Skin: No Symptoms Neurological: No Symptoms Psychological: No Symptoms Endocrine: No Symptoms Hematologic/Lymphatic: No Symptoms Immunological/Allergic: No Symptoms Medications & Allergies Home Medications: Home Medication List Ezetimibe 10 mg [Zetia 10 MG] 10 mg PO HS 02/12/12 [History Confirmed 11/20/24] Vit A/Vit C/Vit E/Zinc/Copper [Preservision Areds Softgel] 1 tablet PO DAILY 04/04/20 [History Confirmed 11/20/24] Tamsulosin HCl 0.4 mg [Flomax 0.4 MG] 2 cap PO HS 12/26/20 [History Confirmed 11/20/24] Allopurinol 100 mg [Zyloprim 100 mg] 100 mg PO HS 03/10/23 [History Confirmed 11/20/24] Bumetanide 2 mg PO BID 01/28/24 [History Confirmed 11/20/24] Potassium Chloride 10 meq PO BID 01/28/24 [History Confirmed 11/20/24] Sertraline HCl 50 mg [Zoloft 50 mg Tablet] 50 mg PO DAILY 01/28/24 [History Confirmed 11/20/24] dilTIAZem HCL [Cartia Xt] 240 mg PO DAILY 01/28/24 [History Confirmed 11/20/24] Budesonide/Glycopyr/Formoterol [Breztri Aerosphere Inhaler] 2 puff IH BID 09/14/24 [History Confirmed 11/20/24] Sildenafil Citrate 20 mg PO TID 09/14/24 [History Confirmed 11/20/24] Apixaban [Eliquis 2.5 mg Tablet] 5 mg PO BID 11/20/24 [History Confirmed 11/20/24] Magnesium Oxide [Magnesium] 500 mg PO HS 11/20/24 [History Confirmed 11/20/24] PANTOPRAZOLE 40 mg Tablet [Protonix 40MG Tablet] 40 mg PO DAILY 11/20/24 [History Confirmed 11/20/24] Prednisone 20 mg [Deltasone 20 mg] 5 mg PO BID 11/20/24 [History Confirmed 11/20/24] Allergies/Adverse Reactions: Allergies Allergy/AdvReac Type Severity Reaction Status Date / Time hydrocodone bitartrate Allergy Mild Hives Verified 11/20/24 11:33 [From Vicodin] tolmetin [From Tolectin] Allergy Nausea and Verified 11/20/24 11:33 Vomiting - Past Medical History Past Medical History: Yes Neurological History: TIA ENT History: No Pertinent History Cardiac History: Arrhythmia, Coronary Artery Disease, Hypertension Respiratory History: COPD, Other Endocrine Medical History: No Pertinent History Musculoskelatal History: Arthritis, Other GI Medical History: GERD History: No Pertinent History Pyscho-Social History: No Pertinent History Male Reproductive Disorders: No Pertinent History Comment: RETINOPATHY, LEFT SHOULDER SURGERY 30 YEARS AGO, AFIB, Black Lung. 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 - Past Surgical History Past Surgical History: Yes Neuro Surgical History: No Pertinent History Cardiac History: Cardiac Catheterization, Cardiac Stent, Pacemaker Respiratory Surgery: No Pertinent History GI Surgical History: Hemorrhoidectomy Genitourinary Surgical Hx: No Pertinent History Musculskeletal Surgical Hx: Orthopedic Surgery Male Surgical History: No Pertinent History Other Surgical History: knee surgery, shoulder surgery Significant Family History: heart disease, cancer, diabetes - Social History Smoking Status: Former smoker How long have you smoked: 60 years Exposure to second hand smoke: No Alcohol: None Drug Use: none - Social Determinants of Health Will the patient participate in the screening: Declined to provide Do you worry about a steady place to live?: No In the past 12 months,have you had to go without utilities?: No Have you or anyone in your house had to go without enough: No Transportation Issues: No Has anyone in your support network made you feel unsafe?: No Does the patient want assistance with any of the above?: No - Physical Exam Vital Signs: Vital Signs - 24 hr Temp Pulse Resp BP BP Pulse Ox 11/20/24 16:40 97 11/20/24 16:00 83 19 134/75 93 L 11/20/24 15:30 91 H 18 136/81 92 L 11/20/24 15:00 85 18 126/77 92 L 11/20/24 14:30 118 H 15 127/68 92 L 11/20/24 14:27 96 H 18 133/70 94 L 11/20/24 14:00 99 H 10 L 116/78 95 11/20/24 13:30 90 16 117/72 94 L 11/20/24 13:00 90 14 121/88 95 11/20/24 12:30 100.5 F 100 H 19 143/75 95 11/20/24 12:00 108 H 16 160/86 92 L 11/20/24 11:56 119 H 14 96 11/20/24 11:38 22 97 11/20/24 11:30 115 H 14 156/88 97 11/20/24 11:29 105 H 16 155/92 97 11/20/24 11:23 109 H 17 164/142 97 11/20/24 11:19 99.5 F 105 H 22 155/92 General Appearance: no apparent distress Neurologic Exam: alert, oriented x 3, cooperative Eye Exam: PERRL/EOMI Ears, Nose, Throat Exam: normal ENT inspection Neck Exam: normal inspection Respiratory Exam: crackles/rales, wheezing Cardiovascular Exam: tachycardia Gastrointestinal/Abdomen Exam: soft, normal bowel sounds Rectal Exam: deferred Back Exam: normal inspection Extremity Exam: normal inspection Skin Exam: normal color Results - Labs Lab/Micro Results: Lab Results-Last 24 Hours 11/20/24 11/20/24 11/20/24 Range/Units 11:50 11:50 11:50 WBC 16.5 H (4.23-9.07) x10^3/uL RBC 5.05 (4.63-6.08) x10^6/uL Hgb 16.0 (13.7-17.5) g/dL Hct 48.6 (40.1-51.0) % MCV 96.2 H (79.0-92.2) fL MCH 31.7 (25.7-32.2) pg MCHC 32.9 (32.3-36.5) g/dL RDW 13.5 (11.6-14.4) % Plt Count 238 (163-337) x10^3/uL MPV 8.6 L (9.4-12.4) fL Gran % 86.2 H (34.0-67.9) % Immature Gran % (Auto) 0.8 H (0.001-0.429) % Nucleat RBC Rel Count 0.1 (0.00-0.2) % Eos # (Auto) 0.02 L (0.04-0.54) x10^3/uL Immature Gran # (Auto) 0.14 H (0.001-0.031) x10^3u/L Absolute Lymphs (auto) 1.12 L (1.32-3.57) x10^3/uL Absolute Monos (auto) 0.99 H (0.30-0.82) x10^3/uL Absolute Nucleated RBC 0.02 H (0.00-0.012) x10^3u/L Lymphocytes % 6.8 L (21.8-53.1) % Monocytes % 6.0 (5.3-12.2) % Eosinophils % 0.1 L (0.8-7.0) % Basophils % 0.1 L (0.2-1.2) % Absolute Granulocytes 14.19 H (1.78-5.38) x10^3/uL Basophils # 0.02 (0.01-0.08) x10^3/uL PT 10.5 (9.4-12.5) SECONDS INR 0.96 (0.8-3.0) Sodium 132 L (135-145) mmol/L Potassium 3.9 (3.5-5.1) mmol/L Chloride 86 L (98-107) mmol/L Carbon Dioxide 33 H (22-30) mmol/L Anion Gap 15.9 H (5-15) MEQ/L BUN 40 H (9-20) mg/dL Creatinine 1.72 H (0.66-1.25) mg/dL Estimated GFR 40.2 ML/MIN Glucose 176 H (74-106) mg/dL Calcium 9.7 (8.4-10.2) mg/dL Total Bilirubin 0.60 (0.2-1.3) mg/dL AST 34 (17-59) U/L ALT 39 (0-50) U/L Alkaline Phosphatase 157 H (38-126) U/L Troponin I (0.000-0.033) ng/mL NT-Pro-B Natriuret Pep 355 (<300) pg/mL Serum Total Protein 7.5 (6.3-8.2) g/dL Albumin 4.7 (3.5-5.0) g/dL Influenza Type A Ag (NEGATIVE) Influenza Type B Ag (NEGATIVE) RSV (PCR) (NEGATIVE) SARS-CoV-2 (PCR) (NEGATIVE) 11/20/24 11/20/24 11/20/24 Range/Units 11:50 11:55 15:10 WBC (4.23-9.07) x10^3/uL RBC (4.63-6.08) x10^6/uL Hgb (13.7-17.5) g/dL Hct (40.1-51.0) % MCV (79.0-92.2) fL MCH (25.7-32.2) pg MCHC (32.3-36.5) g/dL RDW (11.6-14.4) % Plt Count (163-337) x10^3/uL MPV (9.4-12.4) fL Gran % (34.0-67.9) % Immature Gran % (Auto) (0.001-0.429) % Nucleat RBC Rel Count (0.00-0.2) % Eos # (Auto) (0.04-0.54) x10^3/uL Immature Gran # (Auto) (0.001-0.031) x10^3u/L Absolute Lymphs (auto) (1.32-3.57) x10^3/uL Absolute Monos (auto) (0.30-0.82) x10^3/uL Absolute Nucleated RBC (0.00-0.012) x10^3u/L Lymphocytes % (21.8-53.1) % Monocytes % (5.3-12.2) % Eosinophils % (0.8-7.0) % Basophils % (0.2-1.2) % Absolute Granulocytes (1.78-5.38) x10^3/uL Basophils # (0.01-0.08) x10^3/uL PT (9.4-12.5) SECONDS INR (0.8-3.0) Sodium (135-145) mmol/L Potassium (3.5-5.1) mmol/L Chloride (98-107) mmol/L Carbon Dioxide (22-30) mmol/L Anion Gap (5-15) MEQ/L BUN (9-20) mg/dL Creatinine (0.66-1.25) mg/dL Estimated GFR ML/MIN Glucose (74-106) mg/dL Calcium (8.4-10.2) mg/dL Total Bilirubin (0.2-1.3) mg/dL AST (17-59) U/L ALT (0-50) U/L Alkaline Phosphatase (38-126) U/L Troponin I 0.021 0.030 (0.000-0.033) ng/mL NT-Pro-B Natriuret Pep (<300) pg/mL Serum Total Protein (6.3-8.2) g/dL Albumin (3.5-5.0) g/dL Influenza Type A Ag NEGATIVE (NEGATIVE) Influenza Type B Ag NEGATIVE (NEGATIVE) RSV (PCR) NEGATIVE (NEGATIVE) SARS-CoV-2 (PCR) NEGATIVE (NEGATIVE) - Radiology Impressions Radiology Exams & Impressions: Radiology Procedures Category Date Time Status ABDOMEN AND PELVIS W CONTRAST [CT] Stat Exams 11/20/24 13:17 Completed CHEST 1 VIEW (PORTABLE) Stat Exams 11/20/24 11:35 Completed CHEST WITH CONTRAST [CT] Stat Exams 11/20/24 13:17 Completed - Other Procedures and Tests Respiratory Therapy 11/20/24 11:56 Respiratory Therapy Assessment DAILY 11/20/24 16:25 Respiratory Therapy Consult ONCE Assessment/Plan (1) Sepsis Current Visit: Yes Status: Acute Assessment & Plan: -Meet criteria: Febrile, tachycardic, leukocytosis (WBC 16.5), acute illness with pneumonia on imaging. -CT chest: new bilateral lower lobe and left upper lobe airspace disease. -Troponins 2 normal, BNP only 355. -zosyn/azithromycin started in ED -continue due to comorbities -IV fluids judiciously, reassessing volume status given CHF history. -Monitor lactate, blood cultures, urine output. -Maintain MAP >65; vasopressors if hypotension develops despite fluids. -Continuous Tele -Supplemental oxygen with goal spo2 > 89% -Solumedrol 40mg bid -sputum culture -Respiratory viral panel negative - Repeat chest imaging if no clinical improvement. -Scheduled bronchodilators (Duonebs q4h, albuterol PRN). -Resume home inhalers -ABG if worsening hypoxemia, lethargy, or hypercapnia (2) Acute and chronic respiratory failure with hypoxia Current Visit: Yes Status: Acute Assessment & Plan: -see sepsis Code(s): J96.21 - ACUTE AND CHRONIC RESPIRATORY FAILURE WITH HYPOXIA (3) Pneumonia Current Visit: Yes Status: Acute Assessment & Plan: -see sepsis Code(s): J18.9 - PNEUMONIA, UNSPECIFIED ORGANISM (4) CHF (congestive heart failure) Current Visit: Yes Status: Acute Assessment & Plan: -No recent echo on file -CXR suggested vascular congestion, but CT did not show florid pulmonary edema. -BNP 355 -Monitor for fluid overload (daily weights, I&O, lung exam). -PRN IV diuretic only if clear evidence of congestion develops -Continue home meds -Follows with Dr. Coreas OP Code(s): I50.9 - HEART FAILURE, UNSPECIFIED (5) COPD exacerbation Current Visit: Yes Status: Acute Assessment & Plan: see sepsis Code(s): J44.1 - CHRONIC OBSTRUCTIVE PULMONARY DISEASE W (ACUTE) EXACERBATION (6) Hyponatremia Current Visit: Yes Status: Acute Assessment & Plan: -mild -Daily CMP -Fluid restriction if hyponatremia progresses Code(s): E87.1 - HYPO-OSMOLALITY AND HYPONATREMIA (7) Acute kidney injury superimposed on chronic kidney disease Current Visit: Yes Status: Acute Assessment & Plan: -Mild ELIZA above baseline, likely prerenal baseline around 1.5- currently at 1.72 -Daily renal function and strict I&O. -Renally dose all antibiotics and medications. -Avoid nephrotoxins (NSAIDs, IV contrast). -Balance cautious fluid resuscitation for sepsis with risk of CHF overload. -Consier nephrology consult if progressive rise in creatinine or oliguria. Code(s): N17.9 - ACUTE KIDNEY FAILURE, UNSPECIFIED; N18.9 - CHRONIC KIDNEY DISEASE, UNSPECIFIED (8) Constipation Current Visit: Yes Status: Acute Assessment & Plan: -Worsening fecal stasis, no obstruction. -Bowel regimen with senna and polyethylene glycol. -Encourage mobility. -Monitor for ileus. Code(s): K59.00 - CONSTIPATION, UNSPECIFIED (9) Post-acute sequelae of COVID-19 (PASC) Current Visit: Yes Status: Acute Assessment & Plan: -Treated OP with paxlovid- see sepsis Code(s): U09.9 - POST COVID-19 CONDITION, UNSPECIFIED (10) Chronic a-fib Current Visit: No Status: Acute Assessment & Plan: -Tachycardia at presentation; administered 240 mg oral diltiazem before arrival. -Troponins 2 normal no evidence of ACS. -Continuous telemetry. -Continue anticoagulation Eliquis and home meds -Cardiology input if refractory or unstable. Code(s): I48.20 - CHRONIC ATRIAL FIBRILLATION, UNSPECIFIED (11) HTN (hypertension) Current Visit: No Status: Acute Assessment & Plan: -Stable, continue home meds Code(s): I10 - ESSENTIAL (PRIMARY) HYPERTENSION (12) Bladder cancer Current Visit: Yes Status: Acute Assessment & Plan: -History of bladder cancer, patient scheduled for cystoscopy with TURBT on Wednesday with urology. -Continue current admission management for pneumonia/sepsis. -Notify and coordinate with urology regarding hospitalization and acute illness. -Reassess surgical clearance pending stability and recovery from current infection. -Ensure anticoagulation plan reviewed prior to procedure (given history of atrial fibrillation). VTE: Eliquis PPI: protonix Dispo: 2-3 days Code status: Full Code Plan of care time spent > 40 mins Telemedicine Encounter - Telemedicine Encounter Telemedicine Encounter: "The entirety of this encounter was performed via Telemedicine" This visit was performed using real-time audio and video connection between my location and thepatients locationwith the assistance of a surrogateat the patients location. Written or verbal consent was obtained from the patient/gua rdian to perform this visit [facility]. Any patient questions regarding the telemedicine interaction were answered. <CRYSTAL OLGUIN - Last Filed: 11/20/24 22:22> History of Present Illness - Chief Complaint History of Present Illness: is a 79 year old male. - Physical Exam Vital Signs: Vital Signs - 24 hr Temp Pulse Resp BP BP Pulse Ox 11/20/24 19:32 97.9 F 86 18 141/69 92 L 11/20/24 18:49 76 18 95 11/20/24 17:45 97.1 F 80 17 150/72 96 11/20/24 16:40 97 11/20/24 16:00 83 19 134/75 93 L 11/20/24 15:30 91 H 18 136/81 92 L 11/20/24 15:00 85 18 126/77 92 L 11/20/24 14:30 118 H 15 127/68 92 L 11/20/24 14:27 96 H 18 133/70 94 L 11/20/24 14:00 99 H 10 L 116/78 95 11/20/24 13:30 90 16 117/72 94 L 11/20/24 13:00 90 14 121/88 95 11/20/24 12:30 100.5 F 100 H 19 143/75 95 11/20/24 12:00 108 H 16 160/86 92 L 11/20/24 11:56 119 H 14 96 11/20/24 11:38 22 97 11/20/24 11:30 115 H 14 156/88 97 11/20/24 11:29 105 H 16 155/92 97 11/20/24 11:23 109 H 17 164/142 97 11/20/24 11:19 99.5 F 105 H 22 155/92 Results - Labs Lab/Micro Results: Lab Results-Last 24 Hours 11/20/24 11/20/24 11/20/24 Range/Units 11:50 11:50 11:50 WBC 16.5 H (4.23-9.07) x10^3/uL RBC 5.05 (4.63-6.08) x10^6/uL Hgb 16.0 (13.7-17.5) g/dL Hct 48.6 (40.1-51.0) % MCV 96.2 H (79.0-92.2) fL MCH 31.7 (25.7-32.2) pg MCHC 32.9 (32.3-36.5) g/dL RDW 13.5 (11.6-14.4) % Plt Count 238 (163-337) x10^3/uL MPV 8.6 L (9.4-12.4) fL Gran % 86.2 H (34.0-67.9) % Immature Gran % (Auto) 0.8 H (0.001-0.429) % Nucleat RBC Rel Count 0.1 (0.00-0.2) % Eos # (Auto) 0.02 L (0.04-0.54) x10^3/uL Immature Gran # (Auto) 0.14 H (0.001-0.031) x10^3u/L Absolute Lymphs (auto) 1.12 L (1.32-3.57) x10^3/uL Absolute Monos (auto) 0.99 H (0.30-0.82) x10^3/uL Absolute Nucleated RBC 0.02 H (0.00-0.012) x10^3u/L Lymphocytes % 6.8 L (21.8-53.1) % Monocytes % 6.0 (5.3-12.2) % Eosinophils % 0.1 L (0.8-7.0) % Basophils % 0.1 L (0.2-1.2) % Absolute Granulocytes 14.19 H (1.78-5.38) x10^3/uL Basophils # 0.02 (0.01-0.08) x10^3/uL PT 10.5 (9.4-12.5) SECONDS INR 0.96 (0.8-3.0) Sodium 132 L (135-145) mmol/L Potassium 3.9 (3.5-5.1) mmol/L Chloride 86 L (98-107) mmol/L Carbon Dioxide 33 H (22-30) mmol/L Anion Gap 15.9 H (5-15) MEQ/L BUN 40 H (9-20) mg/dL Creatinine 1.72 H (0.66-1.25) mg/dL Estimated GFR 40.2 ML/MIN Glucose 176 H (74-106) mg/dL Lactic Acid (0.4-2.0) Calcium 9.7 (8.4-10.2) mg/dL Total Bilirubin 0.60 (0.2-1.3) mg/dL AST 34 (17-59) U/L ALT 39 (0-50) U/L Alkaline Phosphatase 157 H (38-126) U/L Troponin I (0.000-0.033) ng/mL NT-Pro-B Natriuret Pep 355 (<300) pg/mL Serum Total Protein 7.5 (6.3-8.2) g/dL Albumin 4.7 (3.5-5.0) g/dL TSH 3rd Generation (0.470-4.680) mIU/L Influenza Type A Ag (NEGATIVE) Influenza Type B Ag (NEGATIVE) RSV (PCR) (NEGATIVE) SARS-CoV-2 (PCR) (NEGATIVE) 11/20/24 11/20/24 11/20/24 Range/Units 11:50 11:55 15:10 WBC (4.23-9.07) x10^3/uL RBC (4.63-6.08) x10^6/uL Hgb (13.7-17.5) g/dL Hct (40.1-51.0) % MCV (79.0-92.2) fL MCH (25.7-32.2) pg MCHC (32.3-36.5) g/dL RDW (11.6-14.4) % Plt Count (163-337) x10^3/uL MPV (9.4-12.4) fL Gran % (34.0-67.9) % Immature Gran % (Auto) (0.001-0.429) % Nucleat RBC Rel Count (0.00-0.2) % Eos # (Auto) (0.04-0.54) x10^3/uL Immature Gran # (Auto) (0.001-0.031) x10^3u/L Absolute Lymphs (auto) (1.32-3.57) x10^3/uL Absolute Monos (auto) (0.30-0.82) x10^3/uL Absolute Nucleated RBC (0.00-0.012) x10^3u/L Lymphocytes % (21.8-53.1) % Monocytes % (5.3-12.2) % Eosinophils % (0.8-7.0) % Basophils % (0.2-1.2) % Absolute Granulocytes (1.78-5.38) x10^3/uL Basophils # (0.01-0.08) x10^3/uL PT (9.4-12.5) SECONDS INR (0.8-3.0) Sodium (135-145) mmol/L Potassium (3.5-5.1) mmol/L Chloride (98-107) mmol/L Carbon Dioxide (22-30) mmol/L Anion Gap (5-15) MEQ/L BUN (9-20) mg/dL Creatinine (0.66-1.25) mg/dL Estimated GFR ML/MIN Glucose (74-106) mg/dL Lactic Acid (0.4-2.0) Calcium (8.4-10.2) mg/dL Total Bilirubin (0.2-1.3) mg/dL AST (17-59) U/L ALT (0-50) U/L Alkaline Phosphatase (38-126) U/L Troponin I 0.021 0.030 (0.000-0.033) ng/mL NT-Pro-B Natriuret Pep (<300) pg/mL Serum Total Protein (6.3-8.2) g/dL Albumin (3.5-5.0) g/dL TSH 3rd Generation (0.470-4.680) mIU/L Influenza Type A Ag NEGATIVE (NEGATIVE) Influenza Type B Ag NEGATIVE (NEGATIVE) RSV (PCR) NEGATIVE (NEGATIVE) SARS-CoV-2 (PCR) NEGATIVE (NEGATIVE) 11/20/24 11/20/24 11/20/24 Range/Units 18:00 18:00 18:14 WBC (4.23-9.07) x10^3/uL RBC (4.63-6.08) x10^6/uL Hgb (13.7-17.5) g/dL Hct (40.1-51.0) % MCV (79.0-92.2) fL MCH (25.7-32.2) pg MCHC (32.3-36.5) g/dL RDW (11.6-14.4) % Plt Count (163-337) x10^3/uL MPV (9.4-12.4) fL Gran % (34.0-67.9) % Immature Gran % (Auto) (0.001-0.429) % Nucleat RBC Rel Count (0.00-0.2) % Eos # (Auto) (0.04-0.54) x10^3/uL Immature Gran # (Auto) (0.001-0.031) x10^3u/L Absolute Lymphs (auto) (1.32-3.57) x10^3/uL Absolute Monos (auto) (0.30-0.82) x10^3/uL Absolute Nucleated RBC (0.00-0.012) x10^3u/L Lymphocytes % (21.8-53.1) % Monocytes % (5.3-12.2) % Eosinophils % (0.8-7.0) % Basophils % (0.2-1.2) % Absolute Granulocytes (1.78-5.38) x10^3/uL Basophils # (0.01-0.08) x10^3/uL PT (9.4-12.5) SECONDS INR (0.8-3.0) Sodium (135-145) mmol/L Potassium (3.5-5.1) mmol/L Chloride (98-107) mmol/L Carbon Dioxide (22-30) mmol/L Anion Gap (5-15) MEQ/L BUN (9-20) mg/dL Creatinine (0.66-1.25) mg/dL Estimated GFR ML/MIN Glucose (74-106) mg/dL Lactic Acid 2.5 H (0.4-2.0) Calcium (8.4-10.2) mg/dL Total Bilirubin (0.2-1.3) mg/dL AST (17-59) U/L ALT (0-50) U/L Alkaline Phosphatase (38-126) U/L Troponin I 0.028 (0.000-0.033) ng/mL NT-Pro-B Natriuret Pep (<300) pg/mL Serum Total Protein (6.3-8.2) g/dL Albumin (3.5-5.0) g/dL TSH 3rd Generation 0.497 (0.470-4.680) mIU/L Influenza Type A Ag (NEGATIVE) Influenza Type B Ag (NEGATIVE) RSV (PCR) (NEGATIVE) SARS-CoV-2 (PCR) (NEGATIVE) - Radiology Impressions Radiology Exams & Impressions: Radiology Procedures Category Date Time Status ABDOMEN AND PELVIS W CONTRAST [CT] Stat Exams 11/20/24 13:17 Completed CHEST 1 VIEW (PORTABLE) Stat Exams 11/20/24 11:35 Completed CHEST WITH CONTRAST [CT] Stat Exams 11/20/24 13:17 Completed - Other Procedures and Tests Respiratory Therapy 11/20/24 11:56 Respiratory Therapy Assessment DAILY 11/20/24 17:38 Oxygen Nasal Cannula 4 lpm Telemedicine Encounter - Telemedicine Encounter Telemedicine Encounter: "The entirety of this encounter was performed via Telemedicine" This visit was performed using real-time audio and video connection between my location and thepatients locationwith the assistance of a surrogateat the patients location. Written or verbal consent was obtained from the patient/guardian to perform this visit usings[facility]medicine technology. Any patient questions regarding the telemedicine interaction were answered. CHLOE Encounter - CHLOE Encounter Attestation CHLOE Encounter Attestation: "DONNA Brink andhavediscussed pertinent aspects of their care with Jesusita Youngblood agree with the history, physical exam (any modifications based on my personal exam will be noted below), assessment, and plan as outlined in original note. Please see immediately below for my summary of findings and additional assessment and plan along with any meaningful corrections/explanations to the Subjective/Objective portions of the CHLOE note will be noted." My portion of the encounter took place via telemedicine. -Patient presenting with sepsis likely from secondary bacterial pneumonia after COVID. Initiated on zosyn/azithromycin which we will continue. History of CHF and CKD, cautious administration of fluid.
[2024-11-20] MEDS ORDERED: TYLENOL 325 MG PO PRN (18:10)
[2024-11-20] MEDS: DUONEB 0.5-3 MG/3 ml Neb IH SCH (18:47)
[2024-11-20] MEDS ORDERED: NON-FORMULARY ITEM (Budesonide/Glycopyr/Formoterol [Breztri Aerosphere Inhaler] 10.7 GM Hf IH SCH (22:00)
[2024-11-20] MEDS: ZYLOPRIM 100 MG PO SCH (22:50)
[2024-11-20] MEDS: Zetia 10 MG PO SCH (22:50)
[2024-11-20] MEDS: MAG-OX 400 PO SCH (22:50)
[2024-11-20] MEDS: ELIQUIS 2.5 MG TABLET PO SCH (22:50)
[2024-11-20] MEDS: Klor Con PO SCH (22:50)
[2024-11-20] MEDS: solu-MEDROL 40 MG, Sterile H2O 10 ml 1 ML IV SCH (22:51)
[2024-11-20] MEDS: NON-FORMULARY ITEM (Sildenafil Citrate [Sildenafil Citrate] 20 MG Tablet) PO SCH (23:51)
--- NOTE | 2024-11-21 05:23 | PCM.NOTE ---
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 He tested positive for COVID-19 on 11/14/24 and was prescribed a five-day course of Paxlovid, which he completed on 11/18/24. Although he initially improved, over the last couple of days he has developed worsening shortness of breath, now associated with cough producing greenish sputum, subjective fevers and chills, and diarrhea that began yesterday. He is normally on 34 liters of supplemental oxygen at home. This morning, his noted an increased heart rate and gave him 240 mg of oral diltiazem prior to arrival. Patient states that he is scheduled for cystoscopy with TURBT. On arrival to the ED, the patient was febrile, tachycardic, and hypertensive. Chest X-ray demonstrated new cardiomegaly with central vascular prominence and pulmonary edema, raising concern for early cardiac decompensation. Superimposed pneumonia could not be excluded, though there was no definite consolidation or pleural effusion. The bony thorax again showed osteopenia and degenerative changes. CT abdomen revealed worsening mild diffuse fecal stasis along with chronic findings of an enlarged prostate, arteriosclerotic disease, old granulomatous disease, and chronic bony changes; otherwise, the study was negative. CT chest with contrast ruled out pulmonary embolism but demonstrated new bilateral lower lobe and left upper lobe peripheral consolidating and nonconsolidating airspace disease, concerning for pneumonia, on a background of chronic emphysematous and fibrotic lung disease with bilateral pleural thickening, arteriosclerosis, and prior granulomatous changes. Laboratory findings were notable for leukocytosis with WBC 16.5, hyponatremia with Na 132, hypochloremia at 86, elevated bicarbonate at 33, anion gap 15.9, BUN 40, creatinine 1.72, and alkaline phosphatase 157. Respiratory viral panel was negative for COVID, influenza, and RSV. In the ED, he was treated with intravenous Solu-Medrol, piperacillintazobactam, and azithromycin. 11/21/24: Met with patient bedside. Endorses improvement of dyspnea. At baseline oxygen of 3-4L. Does report a more productive cough with now yellow sputum. Creat has increased to 2.08. Will continue IVF. Will have nursing obtain PVR/bladder scan. Denies fever, cp, abdominal pain, ALCANTAR, dizziness, N/V/D. - Review of Systems Constitutional: No Symptoms Eyes: No Symptoms Ears, Nose, & Throat: No Symptoms Respiratory: Cough, Short Of Breath, Wheezing Cardiac: Edema (BLE 1+ pitting) Abdominal/Gastrointestinal: No Symptoms Genitourinary Symptoms: Hesitancy, Urinary Retention Musculoskeletal: No Symptoms Skin: No Symptoms Neurological: No Symptoms Psychological: No Symptoms Endocrine: No Symptoms Hematologic/Lymphatic: No Symptoms Immunological/Allergic: No Symptoms Objective Exam General Appearance: no apparent distress Neurologic Exam: alert, oriented x 3, cooperative Skin Exam: normal color Eye Exam: PERRL Ears, Nose, Throat Exam: normal ENT inspection Neck Exam: normal inspection Respiratory Exam: crackles/rales, wheezing Cardiovascular Exam: regular rate/rhythm, normal heart sounds Gastrointestinal/Abdomen Exam: normal bowel sounds, distention Extremity Exam: normal inspection Back Exam: normal inspection Male Genitalia Exam: deferred Rectal Exam: deferred Objective Data Vital Signs: Vital Signs - 24 hr Temp Pulse Resp BP BP Pulse Ox 11/21/24 05:20 74 18 91 L 11/21/24 04:10 97.2 F 79 16 134/65 93 L 11/21/24 00:11 75 16 95 11/20/24 23:43 97.3 F 75 18 138/68 91 L 11/20/24 19:32 97.9 F 86 18 141/69 92 L 11/20/24 18:49 76 18 95 11/20/24 17:45 97.1 F 80 17 150/72 96 11/20/24 16:40 97 11/20/24 16:00 83 19 134/75 93 L 11/20/24 15:30 91 H 18 136/81 92 L 11/20/24 15:00 85 18 126/77 92 L 11/20/24 14:30 118 H 15 127/68 92 L 11/20/24 14:27 96 H 18 133/70 94 L 11/20/24 14:00 99 H 10 L 116/78 95 11/20/24 13:30 90 16 117/72 94 L 11/20/24 13:00 90 14 121/88 95 11/20/24 12:30 100.5 F 100 H 19 143/75 95 11/20/24 12:00 108 H 16 160/86 92 L 11/20/24 11:56 119 H 14 96 11/20/24 11:38 22 97 11/20/24 11:30 115 H 14 156/88 97 11/20/24 11:29 105 H 16 155/92 97 11/20/24 11:23 109 H 17 164/142 97 11/20/24 11:19 99.5 F 105 H 22 155/92 Pain Assessment - Last Documented Pain Intensity 0 Intake and Output: Intake & Output 11/18/24 11/19/24 11/20/24 11/21/24 11:59 11:59 11:59 11:59 Intake Total 240 Output Total 475 Balance -235 Weight 104.5 kg 103.8 kg Lab Results: Lab Results-Last 24 Hours 11/20/24 11/20/24 11/20/24 Range/Units 11:50 11:50 11:50 WBC 16.5 H (4.23-9.07) x10^3/uL RBC 5.05 (4.63-6.08) x10^6/uL Hgb 16.0 (13.7-17.5) g/dL Hct 48.6 (40.1-51.0) % MCV 96.2 H (79.0-92.2) fL MCH 31.7 (25.7-32.2) pg MCHC 32.9 (32.3-36.5) g/dL RDW 13.5 (11.6-14.4) % Plt Count 238 (163-337) x10^3/uL MPV 8.6 L (9.4-12.4) fL Gran % 86.2 H (34.0-67.9) % Immature Gran % (Auto) 0.8 H (0.001-0.429) % Nucleat RBC Rel Count 0.1 (0.00-0.2) % Eos # (Auto) 0.02 L (0.04-0.54) x10^3/uL Immature Gran # (Auto) 0.14 H (0.001-0.031) x10^3u/L Absolute Lymphs (auto) 1.12 L (1.32-3.57) x10^3/uL Absolute Monos (auto) 0.99 H (0.30-0.82) x10^3/uL Absolute Nucleated RBC 0.02 H (0.00-0.012) x10^3u/L Lymphocytes % 6.8 L (21.8-53.1) % Monocytes % 6.0 (5.3-12.2) % Eosinophils % 0.1 L (0.8-7.0) % Basophils % 0.1 L (0.2-1.2) % Absolute Granulocytes 14.19 H (1.78-5.38) x10^3/uL Basophils # 0.02 (0.01-0.08) x10^3/uL PT 10.5 (9.4-12.5) SECONDS INR 0.96 (0.8-3.0) Sodium 132 L (135-145) mmol/L Potassium 3.9 (3.5-5.1) mmol/L Chloride 86 L (98-107) mmol/L Carbon Dioxide 33 H (22-30) mmol/L Anion Gap 15.9 H (5-15) MEQ/L BUN 40 H (9-20) mg/dL Creatinine 1.72 H (0.66-1.25) mg/dL Estimated GFR 40.2 ML/MIN Glucose 176 H (74-106) mg/dL Lactic Acid (0.4-2.0) Calcium 9.7 (8.4-10.2) mg/dL Total Bilirubin 0.60 (0.2-1.3) mg/dL AST 34 (17-59) U/L ALT 39 (0-50) U/L Alkaline Phosphatase 157 H (38-126) U/L Troponin I (0.000-0.033) ng/mL NT-Pro-B Natriuret Pep 355 (<300) pg/mL Serum Total Protein 7.5 (6.3-8.2) g/dL Albumin 4.7 (3.5-5.0) g/dL TSH 3rd Generation (0.470-4.680) mIU/L Influenza Type A Ag (NEGATIVE) Influenza Type B Ag (NEGATIVE) RSV (PCR) (NEGATIVE) SARS-CoV-2 (PCR) (NEGATIVE) 11/20/24 11/20/24 11/20/24 Range/Units 11:50 11:55 15:10 WBC (4.23-9.07) x10^3/uL RBC (4.63-6.08) x10^6/uL Hgb (13.7-17.5) g/dL Hct (40.1-51.0) % MCV (79.0-92.2) fL MCH (25.7-32.2) pg MCHC (32.3-36.5) g/dL RDW (11.6-14.4) % Plt Count (163-337) x10^3/uL MPV (9.4-12.4) fL Gran % (34.0-67.9) % Immature Gran % (Auto) (0.001-0.429) % Nucleat RBC Rel Count (0.00-0.2) % Eos # (Auto) (0.04-0.54) x10^3/uL Immature Gran # (Auto) (0.001-0.031) x10^3u/L Absolute Lymphs (auto) (1.32-3.57) x10^3/uL Absolute Monos (auto) (0.30-0.82) x10^3/uL Absolute Nucleated RBC (0.00-0.012) x10^3u/L Lymphocytes % (21.8-53.1) % Monocytes % (5.3-12.2) % Eosinophils % (0.8-7.0) % Basophils % (0.2-1.2) % Absolute Granulocytes (1.78-5.38) x10^3/uL Basophils # (0.01-0.08) x10^3/uL PT (9.4-12.5) SECONDS INR (0.8-3.0) Sodium (135-145) mmol/L Potassium (3.5-5.1) mmol/L Chloride (98-107) mmol/L Carbon Dioxide (22-30) mmol/L Anion Gap (5-15) MEQ/L BUN (9-20) mg/dL Creatinine (0.66-1.25) mg/dL Estimated GFR ML/MIN Glucose (74-106) mg/dL Lactic Acid (0.4-2.0) Calcium (8.4-10.2) mg/dL Total Bilirubin (0.2-1.3) mg/dL AST (17-59) U/L ALT (0-50) U/L Alkaline Phosphatase (38-126) U/L Troponin I 0.021 0.030 (0.000-0.033) ng/mL NT-Pro-B Natriuret Pep (<300) pg/mL Serum Total Protein (6.3-8.2) g/dL Albumin (3.5-5.0) g/dL TSH 3rd Generation (0.470-4.680) mIU/L Influenza Type A Ag NEGATIVE (NEGATIVE) Influenza Type B Ag NEGATIVE (NEGATIVE) RSV (PCR) NEGATIVE (NEGATIVE) SARS-CoV-2 (PCR) NEGATIVE (NEGATIVE) 11/20/24 11/20/24 11/20/24 Range/Units 18:00 18:00 18:14 WBC (4.23-9.07) x10^3/uL RBC (4.63-6.08) x10^6/uL Hgb (13.7-17.5) g/dL Hct (40.1-51.0) % MCV (79.0-92.2) fL MCH (25.7-32.2) pg MCHC (32.3-36.5) g/dL RDW (11.6-14.4) % Plt Count (163-337) x10^3/uL MPV (9.4-12.4) fL Gran % (34.0-67.9) % Immature Gran % (Auto) (0.001-0.429) % Nucleat RBC Rel Count (0.00-0.2) % Eos # (Auto) (0.04-0.54) x10^3/uL Immature Gran # (Auto) (0.001-0.031) x10^3u/L Absolute Lymphs (auto) (1.32-3.57) x10^3/uL Absolute Monos (auto) (0.30-0.82) x10^3/uL Absolute Nucleated RBC (0.00-0.012) x10^3u/L Lymphocytes % (21.8-53.1) % Monocytes % (5.3-12.2) % Eosinophils % (0.8-7.0) % Basophils % (0.2-1.2) % Absolute Granulocytes (1.78-5.38) x10^3/uL Basophils # (0.01-0.08) x10^3/uL PT (9.4-12.5) SECONDS INR (0.8-3.0) Sodium (135-145) mmol/L Potassium (3.5-5.1) mmol/L Chloride (98-107) mmol/L Carbon Dioxide (22-30) mmol/L Anion Gap (5-15) MEQ/L BUN (9-20) mg/dL Creatinine (0.66-1.25) mg/dL Estimated GFR ML/MIN Glucose (74-106) mg/dL Lactic Acid 2.5 H (0.4-2.0) Calcium (8.4-10.2) mg/dL Total Bilirubin (0.2-1.3) mg/dL AST (17-59) U/L ALT (0-50) U/L Alkaline Phosphatase (38-126) U/L Troponin I 0.028 (0.000-0.033) ng/mL NT-Pro-B Natriuret Pep (<300) pg/mL Serum Total Protein (6.3-8.2) g/dL Albumin (3.5-5.0) g/dL TSH 3rd Generation 0.497 (0.470-4.680) mIU/L Influenza Type A Ag (NEGATIVE) Influenza Type B Ag (NEGATIVE) RSV (PCR) (NEGATIVE) SARS-CoV-2 (PCR) (NEGATIVE) 11/21/24 Range/Units 05:14 WBC (4.23-9.07) x10^3/uL RBC (4.63-6.08) x10^6/uL Hgb (13.7-17.5) g/dL Hct (40.1-51.0) % MCV (79.0-92.2) fL MCH (25.7-32.2) pg MCHC (32.3-36.5) g/dL RDW (11.6-14.4) % Plt Count (163-337) x10^3/uL MPV (9.4-12.4) fL Gran % (34.0-67.9) % Immature Gran % (Auto) (0.001-0.429) % Nucleat RBC Rel Count (0.00-0.2) % Eos # (Auto) (0.04-0.54) x10^3/uL Immature Gran # (Auto) (0.001-0.031) x10^3u/L Absolute Lymphs (auto) (1.32-3.57) x10^3/uL Absolute Monos (auto) (0.30-0.82) x10^3/uL Absolute Nucleated RBC (0.00-0.012) x10^3u/L Lymphocytes % (21.8-53.1) % Monocytes % (5.3-12.2) % Eosinophils % (0.8-7.0) % Basophils % (0.2-1.2) % Absolute Granulocytes (1.78-5.38) x10^3/uL Basophils # (0.01-0.08) x10^3/uL PT (9.4-12.5) SECONDS INR (0.8-3.0) Sodium (135-145) mmol/L Potassium (3.5-5.1) mmol/L Chloride (98-107) mmol/L Carbon Dioxide (22-30) mmol/L Anion Gap (5-15) MEQ/L BUN (9-20) mg/dL Creatinine (0.66-1.25) mg/dL Estimated GFR ML/MIN Glucose (74-106) mg/dL Lactic Acid 3.6 H (0.4-2.0) Calcium (8.4-10.2) mg/dL Total Bilirubin (0.2-1.3) mg/dL AST (17-59) U/L ALT (0-50) U/L Alkaline Phosphatase (38-126) U/L Troponin I (0.000-0.033) ng/mL NT-Pro-B Natriuret Pep (<300) pg/mL Serum Total Protein (6.3-8.2) g/dL Albumin (3.5-5.0) g/dL TSH 3rd Generation (0.470-4.680) mIU/L Influenza Type A Ag (NEGATIVE) Influenza Type B Ag (NEGATIVE) RSV (PCR) (NEGATIVE) SARS-CoV-2 (PCR) (NEGATIVE) Radiology Exams: Radiology Procedures Category Date Time Status ABDOMEN AND PELVIS W CONTRAST [CT] Stat Exams 11/20/24 13:17 Completed CHEST 1 VIEW (PORTABLE) Stat Exams 11/20/24 11:35 Completed CHEST WITH CONTRAST [CT] Stat Exams 11/20/24 13:17 Completed Medications: Medications Generic Name Dose Route Start Last Admin Trade Name Freq PRN Reason Stop Dose Admin Acetaminophen 650 mg 11/20/24 18:10 Acetaminophen 325 Mg Tablet PO 12/20/24 18:09 Q4H PRN PRN PAIN, FEVER, HEADACHE Albuterol/Ipratropium 3 ml 11/20/24 19:00 11/21/24 05:20 Ipratropium/Albuterol Sulfate 3 Ml Ampul.Neb IH 12/20/24 18:59 3 ml Q6HRT ENOCH Administration Allopurinol 100 mg 11/20/24 22:00 11/20/24 22:50 Allopurinol 100 Mg Tablet PO 12/20/24 21:59 100 mg HS ENOCH Administration Apixaban 5 mg 11/20/24 22:00 11/20/24 22:50 Apixaban 2.5 Mg Tablet PO 12/20/24 21:59 5 mg BID ENOCH Administration Methylprednisolone Sodium 0 mg 11/20/24 22:00 11/20/24 22:51 Succinate 40 mg/ Sterile Water IV 12/20/24 21:59 1 mg 1 ml Q12HT ENOCH Administration Ezetimibe 10 mg 11/20/24 22:00 11/20/24 22:50 Ezetimibe 10 Mg Tab PO 12/20/24 21:59 10 mg HS ENOCH Administration Azithromycin 500 mg/ Sodium 250 mls @ 250 mls/hr 11/21/24 10:00 Chloride IV 12/21/24 09:59 Q24H10 ENOCH Sodium Chloride 1,000 mls @ 100 mls/hr 11/20/24 18:30 11/20/24 19:49 Sodium Chloride 0.9% 1000 Ml IV 12/20/24 18:29 100 mls/hr .Q10H ENOCH Administration Magnesium Oxide 400 mg 11/20/24 22:47 11/20/24 22:50 Magnesium Oxide 400 Mg Tablet PO 12/20/24 22:46 400 mg HS ENOCH Administration Non-Formulary Medication 1 each 11/20/24 18:10 Pharmacy Dosing Request 11/20/24 18:11 STAT ONE Non-Formulary Medication 2 puff 11/20/24 22:00 Budesonide/Glycopyr/Formoterol [Breztri Aerosphere Inhaler] IH 12/20/24 21:59 BID ENOCH Non-Formulary Medication 240 mg 11/21/24 10:00 Diltiazem Hcl [Cartia Xt] PO 12/21/24 09:59 DAILY ENOCH Non-Formulary Medication 1 tablet 11/21/24 10:00 Vit A/Vit C/Vit E/Zinc/Copper [Preservision Areds Softgel] PO 12/21/24 09:59 DAILY ENOCH Non-Formulary Medication 20 mg 11/20/24 22:00 11/20/24 23:51 Sildenafil Citrate [Sildenafil Citrate] PO 12/20/24 21:59 Not Given TID ENOCH Ondansetron HCl 4 mg 11/20/24 18:13 Ondansetron Hcl 4 Mg/2 Ml Vial IV 12/20/24 18:12 Q6H PRN PRN NAUSEA/VOMITING Pantoprazole Sodium 40 mg 11/21/24 10:00 Protonix (Pantoprazole) 40 Mg Tablet PO 12/21/24 09:59 DAILY ENOCH Potassium Chloride 10 meq 11/20/24 22:00 11/20/24 22:50 Potassium Chloride Tab 10 Meq Tab PO 12/20/24 21:59 10 meq BID ENOCH Administration Sertraline HCl 50 mg 11/21/24 10:00 Sertraline Hcl 50 Mg Tab PO 12/21/24 09:59 DAILY ENOCH Tamsulosin HCl mg 11/20/24 22:00 Tamsulosin Hcl 0.4 Mg Cap PO 12/20/24 21:59 HS ENOCH Discontinued Medications Generic Name Dose Route Start Last Admin Trade Name Freq PRN Reason Stop Dose Admin Acetaminophen 1,000 mg 11/20/24 12:03 11/20/24 12:15 Acetaminophen 500 Mg Tablet PO 11/20/24 12:04 1,000 mg STAT STA Administration Acetaminophen Confirm 11/20/24 12:03 Acetaminophen 500 Mg Tablet Administered 11/20/24 12:04 Dose 1,000 mg .ROUTE .STK-MED ONE Albuterol/Ipratropium 3 ml 11/20/24 11:34 11/20/24 11:56 Ipratropium/Albuterol Sulfate 3 Ml Ampul.Neb IH 11/20/24 11:35 3 ml STAT ONE Administration Albuterol/Ipratropium Confirm 11/20/24 11:41 Ipratropium/Albuterol Sulfate 3 Ml Ampul.Neb Administered 11/20/24 11:42 Dose 3 ml IH .STK-MED ONE Azithromycin Confirm 11/20/24 12:03 Azithromycin Inj Administered 11/20/24 12:04 Dose 500 mg IV .STK-MED ONE Methylprednisolone Sodium 0 mg 11/20/24 11:34 11/20/24 12:15 Succinate 125 mg/ Sterile IV 11/20/24 11:35 125 mg Water 2 ml STAT ONE Administration Azithromycin 500 mg/ Sodium 250 mls @ 250 mls/hr 11/20/24 11:34 11/20/24 13:15 Chloride IV 11/20/24 12:33 Infused STAT STA Infusion Sodium Chloride Confirm 11/20/24 12:04 Sodium Chloride 0.9% 250 Ml Administered 11/20/24 12:05 Dose 250 mls @ ud IV .STK-MED ONE Piperacillin Sod/Tazobactam 100 mls @ 200 mls/hr 11/20/24 12:17 11/20/24 15:42 Sod 4.5 gm/ Sodium Chloride IV 11/20/24 12:46 Infused STAT STA Infusion Sodium Chloride Confirm 11/20/24 13:37 Sodium Chloride 0.9% Administered 11/20/24 13:38 Dose 100 mls @ ud .ROUTE .STK-MED ONE Methylprednisolone Sodium Succinate Confirm 11/20/24 12:03 Methylprednis Sod Succ 125 Mg/2 Ml Vial Administered 11/20/24 12:04 Dose 125 mg .ROUTE .STK-MED ONE Methylprednisolone Sodium Succinate Confirm 11/20/24 22:39 Methylprednisolone Sod Suc 40m 40 Mg/Ml Vial Administered 11/20/24 22:40 Dose 40 mg .ROUTE .STK-MED ONE Non-Formulary Medication 500 mg 11/20/24 22:00 Magnesium Oxide [Magnesium] PO 12/20/24 21:59 HS ENOCH Ondansetron HCl 8 mg 11/20/24 12:03 11/20/24 13:46 Ondansetron Hcl 4 Mg/2 Ml Vial IV 11/20/24 12:04 8 mg STAT ONE Administration Ondansetron HCl Confirm 11/20/24 13:36 Ondansetron Hcl 4 Mg/2 Ml Vial Administered 11/20/24 13:37 Dose 4 mg .ROUTE .STK-MED ONE Piperacillin Sod/Tazobactam Sod Confirm 11/20/24 13:36 Piperacillin/Tazobactam Sodium 4.5 Gm Vial Administered 11/20/24 13:37 Dose 4.5 gm IV .STK-MED ONE Piperacillin Sod/Tazobactam Sod Confirm 11/20/24 13:37 Piperacillin/Tazobactam Sodium 4.5 Gm Vial Administered 11/20/24 13:38 Dose 4.5 gm IV .STK-MED ONE Sterile Water Confirm 11/20/24 12:03 Water For Injection,Sterile 10 Ml Vial Administered 11/20/24 12:04 Dose 10 ml IJ .STK-MED ONE Sterile Water Confirm 11/20/24 22:41 Water For Injection,Sterile 10 Ml Vial Administered 11/20/24 22:42 Dose 10 ml IJ .STK-MED ONE Assessment/Plan (1) Sepsis Current Visit: Yes Status: Acute Assessment & Plan: -Meet criteria: Febrile, tachycardic, leukocytosis (WBC 16.5), acute illness with pneumonia on imaging. -CT chest: new bilateral lower lobe and left upper lobe airspace disease. -Troponins 2 normal, BNP only 355. -zosyn/azithromycin started in ED -continue due to comorbities -IV fluids judiciously, reassessing volume status given CHF history. -Monitor lactate, blood cultures, urine output. -Maintain MAP >65; vasopressors if hypotension develops despite fluids. -Continuous Tele -Supplemental oxygen with goal spo2 > 89% -Solumedrol 40mg bid -sputum culture -Respiratory viral panel negative - Repeat chest imaging if no clinical improvement. -Scheduled bronchodilators (Duonebs q4h, albuterol PRN). -Resume home inhalers -ABG if worsening hypoxemia, lethargy, or hypercapnia 11/21: -Remains at 4L oxygen -Sputum cult pending -continue solumedrol/zosyn/azithromycin -Lactate at 3.6- continue IVF (2) Acute and chronic respiratory failure with hypoxia Current Visit: Yes Status: Acute Assessment & Plan: -see sepsis Code(s): J96.21 - ACUTE AND CHRONIC RESPIRATORY FAILURE WITH HYPOXIA (3) Pneumonia Current Visit: Yes Status: Acute Assessment & Plan: -see sepsis Code(s): J18.9 - PNEUMONIA, UNSPECIFIED ORGANISM (4) CHF (congestive heart failure) Current Visit: Yes Status: Acute Assessment & Plan: -No recent echo on file -CXR suggested vascular congestion, but CT did not show florid pulmonary edema. -BNP 355 -Monitor for fluid overload (daily weights, I&O, lung exam). -PRN IV diuretic only if clear evidence of congestion develops -Continue home meds -Follows with Dr. Coreas OP Code(s): I50.9 - HEART FAILURE, UNSPECIFIED (5) COPD exacerbation Current Visit: Yes Status: Acute Assessment & Plan: see sepsis Code(s): J44.1 - CHRONIC OBSTRUCTIVE PULMONARY DISEASE W (ACUTE) EXACERBATION (6) Hyponatremia Current Visit: Yes Status: Acute Assessment & Plan: -mild -Daily CMP -Fluid restriction if hyponatremia progresses 11/21: -Sodium level at 130 in the setting of hyperglycemia Code(s): E87.1 - HYPO-OSMOLALITY AND HYPONATREMIA (7) Acute kidney injury superimposed on chronic kidney disease Current Visit: Yes Status: Acute Assessment & Plan: -Mild ELIZA above baseline, likely prerenal baseline around 1.5- currently at 1.72 -Daily renal function and strict I&O. -Renally dose all antibiotics and medications. -Avoid nephrotoxins (NSAIDs, IV contrast). -Balance cautious fluid resuscitation for sepsis with risk of CHF overload. -Consier nephrology consult if progressive rise in creatinine or oliguria. 11/21: -Consult nephrology -continue IVF-avoid nephrotoxic meds -creat reviewed at 2.08 Code(s): N17.9 - ACUTE KIDNEY FAILURE, UNSPECIFIED; N18.9 - CHRONIC KIDNEY DISEASE, UNSPECIFIED (8) Constipation Current Visit: Yes Status: Acute Assessment & Plan: -Worsening fecal stasis, no obstruction. -Bowel regimen with senna and polyethylene glycol. -Encourage mobility. -Monitor for ileus. 11/21: -Bowel regimen -BM x 1 Code(s): K59.00 - CONSTIPATION, UNSPECIFIED (9) Post-acute sequelae of COVID-19 (PASC) Current Visit: Yes Status: Acute Assessment & Plan: -Treated OP with paxlovid- see sepsis Code(s): U09.9 - POST COVID-19 CONDITION, UNSPECIFIED (10) Chronic a-fib Current Visit: No Status: Acute Assessment & Plan: -Tachycardia at presentation; administered 240 mg oral diltiazem before arrival. -Troponins 2 normal no evidence of ACS. -Continuous telemetry. -Continue anticoagulation Eliquis and home meds -Cardiology input if refractory or unstable. Code(s): I48.20 - CHRONIC ATRIAL FIBRILLATION, UNSPECIFIED (11) HTN (hypertension) Current Visit: No Status: Acute Assessment & Plan: -Stable, continue home meds Code(s): I10 - ESSENTIAL (PRIMARY) HYPERTENSION (12) Bladder cancer Current Visit: Yes Status: Acute Assessment & Plan: -History of bladder cancer, patient scheduled for cystoscopy with TURBT on Wednesday with urology. -Continue current admission management for pneumonia/sepsis. -Notify and coordinate with urology regarding hospitalization and acute illness. -Reassess surgical clearance pending stability and recovery from current infection. -Ensure anticoagulation plan reviewed prior to procedure (given history of atrial fibrillation). PVR and bladder scan to evaluate for retention VTE: Eliquis PPI: protonix Dispo: 2-3 days Code status: Full Code Plan of care time spent > 40 mins (2) Acute and chronic respiratory failure with hypoxia Current Visit: Yes Status: Acute Code(s): J96.21 - ACUTE AND CHRONIC RESPIRATORY FAILURE WITH HYPOXIA (3) Pneumonia Current Visit: Yes Status: Acute Code(s): J18.9 - PNEUMONIA, UNSPECIFIED ORGANISM (4) CHF (congestive heart failure) Current Visit: Yes Status: Acute Code(s): I50.9 - HEART FAILURE, UNSPECIFIED (5) COPD exacerbation Current Visit: Yes Status: Acute Code(s): J44.1 - CHRONIC OBSTRUCTIVE PULMONARY DISEASE W (ACUTE) EXACERBATION (6) Hyponatremia Current Visit: Yes Status: Acute Code(s): E87.1 - HYPO-OSMOLALITY AND HYPONATREMIA (7) Acute kidney injury superimposed on chronic kidney disease Current Visit: Yes Status: Acute Code(s): N17.9 - ACUTE KIDNEY FAILURE, UNSPECIFIED; N18.9 - CHRONIC KIDNEY DISEASE, UNSPECIFIED (8) Constipation Current Visit: Yes Status: Acute Code(s): K59.00 - CONSTIPATION, UNSPECIFIED (9) Post-acute sequelae of COVID-19 (PASC) Current Visit: Yes Status: Acute Code(s): U09.9 - POST COVID-19 CONDITION, UNSPECIFIED (10) Chronic a-fib Current Visit: No Status: Acute Code(s): I48.20 - CHRONIC ATRIAL FIBRILLATION, UNSPECIFIED (11) HTN (hypertension) Current Visit: No Status: Acute Code(s): I10 - ESSENTIAL (PRIMARY) HYPERTENSION (12) Hyperglycemia Current Visit: Yes Status: Acute Assessment & Plan: -Patient states he is borderline diabetic and does not take any meds at home - discussed with his PCP after last hospitalization showing A1c of 6.8- no interventions as patient has several courses of steroids -due to steroids -add mod dose SSI with ACHS accuchecks Code(s): R73.9 - HYPERGLYCEMIA, UNSPECIFIED (13) Bladder cancer Current Visit: Yes Status: Acute
[2024-11-21 05:51] LABS: Hematocrit 40.7 % (40.1-51.0); Hemoglobin 13.4 g/dL (13.7-17.5); Mean Corpuscular Hemoglobin 31.3 pg (25.7-32.2); Mean Corpuscular Hgb Concent. 32.9 g/dL (32.3-36.5); Platelet Count 237 x10^3/uL (163-337); Red Blood Count 4.28 x10^6/uL (4.63-6.08); White Blood Count 16.2 x10^3/uL (4.23-9.07)
[2024-11-21 06:14] LABS: Calcium 8.8 mg/dL (8.4-10.2); Carbon Dioxide 29.0 mmol/L (22-30); Creatinine 1 2.08 mg/dL (0.66-1.25); EST GLOMERULAR FILTRATION RATE 32.0 ML/MIN; Glucose 349.0 mg/dL (74-106); Potassium 3.9 mmol/L (3.5-5.1); SGOT/AST 32.0 U/L (17-59); SGPT/ALT 36.0 U/L (0-50); Total Protein 6.6 g/dL (6.3-8.2)
[2024-11-21] MEDS ORDERED: MEDICATION INTERVENTION MC SCH (07:45)
[2024-11-21] MEDS: PATIENT OWN MEDICATION IH SCH (09:07)
[2024-11-21] MEDS: HUMALOG SQ PRN ×2 (09:49→17:21)
[2024-11-21] MEDS ORDERED: DILTIAZEM HCL 240 MG PO SCH (10:00)
[2024-11-21] MEDS ORDERED: NON-FORMULARY ITEM (Vit A/Vit C/Vit E/Zinc/Copper [Preservision Areds Softgel] 1 EACH Caps PO SCH (10:00)
[2024-11-21] MEDS: Ocuvite Tablet PO SCH (10:02)
[2024-11-21] MEDS: Protonix 40MG Tablet PO SCH (10:02)
[2024-11-21] MEDS: ZOLOFT 50 MG TABLET PO SCH (10:02)
[2024-11-21] MEDS: Cardizem CD PO SCH (10:02)
[2024-11-21] MEDS: SILDENAFIL CITRATE PO SCH (10:04)
[2024-11-21] MEDS: ZITHROMAX IV*** 500 MG in Sodium Chloride 0.9% 250 ML 250 ML IV SCH (10:44)
[2024-11-21] MEDS: Flomax 0.4 MG PO SCH (10:59)
[2024-11-21] MEDS: PHARMACY RENAL DOSING MC ONE (10:59)
[2024-11-21] MEDS: NON-FORMULARY ITEM (Magnesium Oxide [Magnesium] 500 MG Capsule) PO SCH (11:00)
[2024-11-21] MEDS: Zofran 4 MG/2 ML VIAL IV PRN (11:53)
[2024-11-21 14:06] LABS: Calcium 8.8 mg/dL (8.4-10.2); Carbon Dioxide 31.0 mmol/L (22-30); Creatinine 1 1.77 mg/dL (0.66-1.25); EST GLOMERULAR FILTRATION RATE 38.8 ML/MIN; Glucose 292.0 mg/dL (74-106); Potassium 3.7 mmol/L (3.5-5.1); SGOT/AST 28.0 U/L (17-59); SGPT/ALT 34.0 U/L (0-50); Total Protein 6.4 g/dL (6.3-8.2)
[2024-11-21] MEDS: Miralax Powder 17GM PACKET PO SCH (16:24)
[2024-11-21] MEDS: Docusate Sodium 100 MG PO SCH (16:25)
--- NOTE | 2024-11-22 05:26 | PCM.NOTE ---
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 He tested positive for COVID-19 on 11/14/24 and was prescribed a five-day course of Paxlovid, which he completed on 11/18/24. Although he initially improved, over the last couple of days he has developed worsening shortness of breath, now associated with cough producing greenish sputum, subjective fevers and chills, and diarrhea that began yesterday. He is normally on 34 liters of supplemental oxygen at home. This morning, his noted an increased heart rate and gave him 240 mg of oral diltiazem prior to arrival. Patient states that he is scheduled for cystoscopy with TURBT. On arrival to the ED, the patient was febrile, tachycardic, and hypertensive. Chest X-ray demonstrated new cardiomegaly with central vascular prominence and pulmonary edema, raising concern for early cardiac decompensation. Superimposed pneumonia could not be excluded, though there was no definite consolidation or pleural effusion. The bony thorax again showed osteopenia and degenerative changes. CT abdomen revealed worsening mild diffuse fecal stasis along with chronic findings of an enlarged prostate, arteriosclerotic disease, old granulomatous disease, and chronic bony changes; otherwise, the study was negative. CT chest with contrast ruled out pulmonary embolism but demonstrated new bilateral lower lobe and left upper lobe peripheral consolidating and nonconsolidating airspace disease, concerning for pneumonia, on a background of chronic emphysematous and fibrotic lung disease with bilateral pleural thickening, arteriosclerosis, and prior granulomatous changes. Laboratory findings were notable for leukocytosis with WBC 16.5, hyponatremia with Na 132, hypochloremia at 86, elevated bicarbonate at 33, anion gap 15.9, BUN 40, creatinine 1.72, and alkaline phosphatase 157. Respiratory viral panel was negative for COVID, influenza, and RSV. In the ED, he was treated with intravenous Solu-Medrol, piperacillintazobactam, and azithromycin. 11/21/24: Met with patient bedside. Endorses improvement of dyspnea. At baseline oxygen of 3-4L. Does report a more productive cough with now yellow sputum. Creat has increased to 2.08. Will continue IVF. Will have nursing obtain PVR/bladder scan. Denies fever, cp, abdominal pain, ALCANTAR, dizziness, N/V/D. 11/22/24: Met with patient bedside. Endorses that dyspnea has improved. Cough remains productive with yellow sputum. Wheezing throughout on lung auscultation. Creat improving and now at baseline. Patient denies any other complaints- Anxious for discharge. Will add mucinex and continue abx/IV steroids. Sputum culture with gram + cocci with few yeast (most likely colonization) continue abx- no antifungal therapy indicated at this time. - Review of Systems Constitutional: Weakness Eyes: No Symptoms Ears, Nose, & Throat: No Symptoms Respiratory: Cough, Short Of Breath, Wheezing Cardiac: Edema (+1 pitting edema BLE) Abdominal/Gastrointestinal: No Symptoms Genitourinary Symptoms: No Symptoms Musculoskeletal: No Symptoms Skin: No Symptoms Neurological: No Symptoms Psychological: No Symptoms Endocrine: No Symptoms Hematologic/Lymphatic: No Symptoms Immunological/Allergic: No Symptoms Objective Exam General Appearance: no apparent distress Neurologic Exam: alert, oriented x 3, cooperative Skin Exam: normal color Eye Exam: PERRL Ears, Nose, Throat Exam: normal ENT inspection Neck Exam: normal inspection Respiratory Exam: wheezing Cardiovascular Exam: regular rate/rhythm, normal heart sounds Gastrointestinal/Abdomen Exam: normal bowel sounds, distention Extremity Exam: swelling (BLE +1 pitting) Back Exam: normal inspection Male Genitalia Exam: deferred Rectal Exam: deferred Objective Data Vital Signs: Vital Signs - 24 hr Temp Pulse Resp BP Pulse Ox 11/22/24 04:00 97.9 F 75 20 134/64 95 11/22/24 01:06 82 20 90 L 11/22/24 00:00 97.5 F 81 19 136/63 90 L 11/21/24 20:00 97.3 F 76 18 131/58 94 L 11/21/24 19:35 78 20 90 L 11/21/24 16:00 97.9 F 73 16 139/65 93 L 11/21/24 12:12 72 16 91 L 11/21/24 11:21 97.6 F 81 18 140/61 93 L 11/21/24 07:04 97.7 F 83 18 144/62 98 Pain Assessment - Last Documented Pain Intensity 0 Intake and Output: Intake & Output 11/19/24 11/20/24 11/21/24 11/22/24 11:59 11:59 11:59 11:59 Intake Total 1670 3047 Output Total 1225 1400 Balance 445 1647 Weight 104.5 kg 105.8 kg Lab Results: Lab Results-Last 24 Hours 11/21/24 11/21/24 11/21/24 Range/Units 05:17 05:17 07:17 WBC 16.2 H (4.23-9.07) x10^3/uL RBC 4.28 L (4.63-6.08) x10^6/uL Hgb 13.4 L (13.7-17.5) g/dL Hct 40.7 (40.1-51.0) % MCV 95.1 H (79.0-92.2) fL MCH 31.3 (25.7-32.2) pg MCHC 32.9 (32.3-36.5) g/dL RDW 13.6 (11.6-14.4) % Plt Count 237 (163-337) x10^3/uL MPV 8.9 L (9.4-12.4) fL Sodium 130 L (135-145) mmol/L Potassium 3.9 (3.5-5.1) mmol/L Chloride 89 L (98-107) mmol/L Carbon Dioxide 29 (22-30) mmol/L Anion Gap 16.2 H (5-15) MEQ/L BUN 50 H (9-20) mg/dL Creatinine 2.08 H (0.66-1.25) mg/dL Estimated GFR 32.0 ML/MIN Glucose 349 H (74-106) mg/dL POC Glucometer 317 H (74 to 106) mg/dL Lactic Acid (0.4-2.0) Calcium 8.8 (8.4-10.2) mg/dL Total Bilirubin 0.30 (0.2-1.3) mg/dL AST 32 (17-59) U/L ALT 36 (0-50) U/L Alkaline Phosphatase 134 H (38-126) U/L Serum Total Protein 6.6 (6.3-8.2) g/dL Albumin 3.8 (3.5-5.0) g/dL 11/21/24 11/21/24 11/21/24 Range/Units 11:02 13:47 16:30 WBC (4.23-9.07) x10^3/uL RBC (4.63-6.08) x10^6/uL Hgb (13.7-17.5) g/dL Hct (40.1-51.0) % MCV (79.0-92.2) fL MCH (25.7-32.2) pg MCHC (32.3-36.5) g/dL RDW (11.6-14.4) % Plt Count (163-337) x10^3/uL MPV (9.4-12.4) fL Sodium 131 L (135-145) mmol/L Potassium 3.7 (3.5-5.1) mmol/L Chloride 91 L (98-107) mmol/L Carbon Dioxide 31 H (22-30) mmol/L Anion Gap 12.5 (5-15) MEQ/L BUN 52 H (9-20) mg/dL Creatinine 1.77 H (0.66-1.25) mg/dL Estimated GFR 38.8 ML/MIN Glucose 292 H (74-106) mg/dL POC Glucometer 310 H 288 H (74 to 106) mg/dL Lactic Acid (0.4-2.0) Calcium 8.8 (8.4-10.2) mg/dL Total Bilirubin 0.20 (0.2-1.3) mg/dL AST 28 (17-59) U/L ALT 34 (0-50) U/L Alkaline Phosphatase 137 H (38-126) U/L Serum Total Protein 6.4 (6.3-8.2) g/dL Albumin 3.7 (3.5-5.0) g/dL 11/21/24 11/22/24 Range/Units 21:12 05:05 WBC (4.23-9.07) x10^3/uL RBC (4.63-6.08) x10^6/uL Hgb (13.7-17.5) g/dL Hct (40.1-51.0) % MCV (79.0-92.2) fL MCH (25.7-32.2) pg MCHC (32.3-36.5) g/dL RDW (11.6-14.4) % Plt Count (163-337) x10^3/uL MPV (9.4-12.4) fL Sodium (135-145) mmol/L Potassium (3.5-5.1) mmol/L Chloride (98-107) mmol/L Carbon Dioxide (22-30) mmol/L Anion Gap (5-15) MEQ/L BUN (9-20) mg/dL Creatinine (0.66-1.25) mg/dL Estimated GFR ML/MIN Glucose (74-106) mg/dL POC Glucometer 318 H (74 to 106) mg/dL Lactic Acid 1.8 (0.4-2.0) Calcium (8.4-10.2) mg/dL Total Bilirubin (0.2-1.3) mg/dL AST (17-59) U/L ALT (0-50) U/L Alkaline Phosphatase (38-126) U/L Serum Total Protein (6.3-8.2) g/dL Albumin (3.5-5.0) g/dL Radiology Exams: Radiology Procedures Category Date Time Status ABDOMEN AND PELVIS W CONTRAST [CT] Stat Exams 11/20/24 13:17 Completed CHEST 1 VIEW (PORTABLE) Stat Exams 11/20/24 11:35 Completed CHEST WITH CONTRAST [CT] Stat Exams 11/20/24 13:17 Completed Medications: Medications Generic Name Dose Route Start Last Admin Trade Name Freq PRN Reason Stop Dose Admin Acetaminophen 650 mg 11/20/24 18:10 Acetaminophen 325 Mg Tablet PO 12/20/24 18:09 Q4H PRN PRN PAIN, FEVER, HEADACHE Albuterol/Ipratropium 3 ml 11/20/24 19:00 11/22/24 00:53 Ipratropium/Albuterol Sulfate 3 Ml Ampul.Neb IH 12/20/24 18:59 3 ml Q6HRT ENOCH Administration Allopurinol 100 mg 11/20/24 22:00 11/21/24 21:22 Allopurinol 100 Mg Tablet PO 12/20/24 21:59 100 mg HS ENOCH Administration Apixaban 5 mg 11/20/24 22:00 11/21/24 21:22 Apixaban 2.5 Mg Tablet PO 12/20/24 21:59 5 mg BID ENOCH Administration Methylprednisolone Sodium 0 mg 11/20/24 22:00 11/21/24 21:23 Succinate 40 mg/ Sterile Water IV 12/20/24 21:59 40 mg 1 ml Q12HT ENOCH Administration Diltiazem HCl 240 mg 11/21/24 10:00 11/21/24 10:02 Diltiazem Hcl Cd 120 Mg Cap.Sr.24h PO 12/21/24 09:59 240 mg DAILY ENOCH Administration Docusate Sodium 100 mg 11/21/24 13:00 11/21/24 21:22 Docusate Sodium 100 Mg Capsule PO 12/21/24 12:59 100 mg BID ENOCH Administration Ezetimibe 10 mg 11/20/24 22:00 11/21/24 21:22 Ezetimibe 10 Mg Tab PO 12/20/24 21:59 10 mg HS ENOCH Administration Azithromycin 500 mg/ Sodium 250 mls @ 250 mls/hr 11/21/24 10:00 11/21/24 10:44 Chloride IV 12/21/24 09:59 250 mls/hr Q24H10 ENOCH Administration Sodium Chloride 1,000 mls @ 100 mls/hr 11/20/24 18:30 11/21/24 21:22 Sodium Chloride 0.9% 1000 Ml IV 12/20/24 18:29 100 mls/hr .Q10H ENOCH Administration Piperacillin Sod/Tazobactam 100 mls @ 200 mls/hr 11/21/24 08:00 11/21/24 23:57 Sod 4.5 gm/ Sodium Chloride IV 12/21/24 07:59 200 mls/hr Q8H ENOCH Administration Insulin Human Lispro 0 unit 11/21/24 14:53 11/21/24 21:23 Insulin Lispro 1 Unit SQ 12/21/24 14:52 12 unit UD PRN Administration HYPERGLYCEMIA Magnesium Oxide 400 mg 11/20/24 22:47 11/21/24 21:22 Magnesium Oxide 400 Mg Tablet PO 12/20/24 22:46 400 mg HS ENOCH Administration Multivitamins/Minerals 1 tab 11/21/24 10:00 11/21/24 10:02 Beta-Carotene(A) W-C And E/Min 1 Tab Tablet PO 12/21/24 09:59 1 tab DAILY ENOCH Administration Ondansetron HCl 4 mg 11/20/24 18:13 11/21/24 11:53 Ondansetron Hcl 4 Mg/2 Ml Vial IV 12/20/24 18:12 4 mg Q6H PRN PRN Administration NAUSEA/VOMITING Pantoprazole Sodium 40 mg 11/21/24 10:00 11/21/24 10:02 Protonix (Pantoprazole) 40 Mg Tablet PO 12/21/24 09:59 40 mg DAILY ENOCH Administration Reuben 160/9/4.8 - 2 each 11/21/24 10:00 11/21/24 19:34 Patient Own Med IH 12/21/24 09:59 2 each Misc BIDRT ENOCH Administration Polyethylene Glycol 17 gm 11/21/24 13:00 11/21/24 16:24 Polyethylene Glycol 3350 17 Gm Packet PO 12/21/24 12:59 17 gm DAILY ENOCH Administration Potassium Chloride 10 meq 11/20/24 22:00 11/21/24 21:22 Potassium Chloride Tab 10 Meq Tab PO 12/20/24 21:59 10 meq BID ENOCH Administration Sertraline HCl 50 mg 11/21/24 10:00 11/21/24 10:02 Sertraline Hcl 50 Mg Tab PO 12/21/24 09:59 50 mg DAILY ENOCH Administration Sildenafil Citrate 20 mg 11/21/24 10:00 11/21/24 21:46 Sildenafil Citrate 20 Mg Tablet PO 12/21/24 09:59 20 mg TID ENOCH Administration Tamsulosin HCl 0.8 mg 11/20/24 22:00 11/21/24 21:22 Tamsulosin Hcl 0.4 Mg Cap PO 12/20/24 21:59 0.8 mg HS ENOCH Administration Discontinued Medications Generic Name Dose Route Start Last Admin Trade Name Freq PRN Reason Stop Dose Admin Acetaminophen 1,000 mg 11/20/24 12:03 11/20/24 12:15 Acetaminophen 500 Mg Tablet PO 11/20/24 12:04 1,000 mg STAT STA Administration Acetaminophen Confirm 11/20/24 12:03 Acetaminophen 500 Mg Tablet Administered 11/20/24 12:04 Dose 1,000 mg .ROUTE .STK-MED ONE Albuterol/Ipratropium 3 ml 11/20/24 11:34 11/20/24 11:56 Ipratropium/Albuterol Sulfate 3 Ml Ampul.Neb IH 11/20/24 11:35 3 ml STAT ONE Administration Albuterol/Ipratropium Confirm 11/20/24 11:41 Ipratropium/Albuterol Sulfate 3 Ml Ampul.Neb Administered 11/20/24 11:42 Dose 3 ml IH .STK-MED ONE Azithromycin Confirm 11/20/24 12:03 Azithromycin Inj Administered 11/20/24 12:04 Dose 500 mg IV .STK-MED ONE Methylprednisolone Sodium 0 mg 11/20/24 11:34 11/20/24 12:15 Succinate 125 mg/ Sterile IV 11/20/24 11:35 125 mg Water 2 ml STAT ONE Administration Azithromycin 500 mg/ Sodium 250 mls @ 250 mls/hr 11/20/24 11:34 11/20/24 13:15 Chloride IV 11/20/24 12:33 Infused STAT STA Infusion Sodium Chloride Confirm 11/20/24 12:04 Sodium Chloride 0.9% 250 Ml Administered 11/20/24 12:05 Dose 250 mls @ ud IV .STK-MED ONE Piperacillin Sod/Tazobactam 100 mls @ 200 mls/hr 11/20/24 12:17 11/20/24 1 5:42 Sod 4.5 gm/ Sodium Chloride IV 11/20/24 12:46 Infused STAT STA Infusion Sodium Chloride Confirm 11/20/24 13:37 Sodium Chloride 0.9% Administered 11/20/24 13:38 Dose 100 mls @ ud .ROUTE .STK-MED ONE Sodium Chloride Confirm 11/21/24 06:43 Sodium Chloride 0.9% 1000 Ml Administered 11/21/24 06:44 Dose 1,000 mls @ ud .ROUTE .STK-MED ONE Insulin Human Lispro 0 unit 11/21/24 07:46 11/21/24 11:54 Insulin Lispro 1 Unit SQ 12/21/24 07:45 9 unit UD PRN Administration HYPERGLYCEMIA Methylprednisolone Sodium Succinate Confirm 11/20/24 12:03 Methylprednis Sod Succ 125 Mg/2 Ml Vial Administered 11/20/24 12:04 Dose 125 mg .ROUTE .STK-MED ONE Methylprednisolone Sodium Succinate Confirm 11/20/24 22:39 Methylprednisolone Sod Suc 40m 40 Mg/Ml Vial Administered 11/20/24 22:40 Dose 40 mg .ROUTE .STK-MED ONE Miscellaneous Information 1 each 11/21/24 07:45 Medication Intervention 1 Each Each 12/21/24 07:44 .RT TO CHECK ENOCH Non-Formulary Medication 1 each 11/20/24 18:10 11/21/24 10:59 Pharmacy Dosing Request 11/20/24 18:11 Not Given STAT ONE Non-Formulary Medication 500 mg 11/20/24 22:00 11/21/24 11:00 Magnesium Oxide [Magnesium] PO 12/20/24 21:59 Not Given HS ENOCH Non-Formulary Medication 20 mg 11/20/24 22:00 11/20/24 23:51 Sildenafil Citrate [Sildenafil Citrate] PO 12/20/24 21:59 Not Given TID ENOCH Ondansetron HCl 8 mg 11/20/24 12:03 11/20/24 13:46 Ondansetron Hcl 4 Mg/2 Ml Vial IV 11/20/24 12:04 8 mg STAT ONE Administration Ondansetron HCl Confirm 11/20/24 13:36 Ondansetron Hcl 4 Mg/2 Ml Vial Administered 11/20/24 13:37 Dose 4 mg .ROUTE .STK-MED ONE Piperacillin Sod/Tazobactam Sod Confirm 11/20/24 13:36 Piperacillin/Tazobactam Sodium 4.5 Gm Vial Administered 11/20/24 13:37 Dose 4.5 gm IV .STK-MED ONE Piperacillin Sod/Tazobactam Sod Confirm 11/20/24 13:37 Piperacillin/Tazobactam Sodium 4.5 Gm Vial Administered 11/20/24 13:38 Dose 4.5 gm IV .STK-MED ONE Sterile Water Confirm 11/20/24 12:03 Water For Injection,Sterile 10 Ml Vial Administered 11/20/24 12:04 Dose 10 ml IJ .STK-MED ONE Sterile Water Confirm 11/20/24 22:41 Water For Injection,Sterile 10 Ml Vial Administered 11/20/24 22:42 Dose 10 ml IJ .STK-MED ONE Multi-Disciplinary Progress Notes: Multi-Disciplinary Progress Notes 11/21/24 08:02 Pharmacy Note by Tin Moody reviewed for renal dosing. All doses are ok a this time. Initialized on 11/21/24 08:02 - END OF NOTE 11/21/24 07:43 Pharmacy Note by Tin Moody Zosyn dosed at 4.5gm iv q8h for estimated crcl of 29ml/min. Creatinine 2.08. Initialized on 11/21/24 07:43 - END OF NOTE Assessment/Plan (1) Sepsis Current Visit: Yes Status: Acute Assessment & Plan: -Meet criteria: Febrile, tachycardic, leukocytosis (WBC 16.5), acute illness with pneumonia on imaging. -CT chest: new bilateral lower lobe and left upper lobe airspace disease. -Troponins 2 normal, BNP only 355. -zosyn/azithromycin started in ED -continue due to comorbities -IV fluids judiciously, reassessing volume status given CHF history. -Monitor lactate, blood cultures, urine output. -Maintain MAP >65; vasopressors if hypotension develops despite fluids. -Continuous Tele -Supplemental oxygen with goal spo2 > 89% -Solumedrol 40mg bid -sputum culture -Respiratory viral panel negative - Repeat chest imaging if no clinical improvement. -Scheduled bronchodilators (Duonebs q4h, albuterol PRN). -Resume home inhalers -ABG if worsening hypoxemia, lethargy, or hypercapnia 11/21: -Remains at 4L oxygen -Sputum cult pending -continue solumedrol/zosyn/azithromycin -Lactate at 3.6- continue IVF 11/22: -WBC at 17 (patient on solumedrol) -Continue Solumedrol-titrate to prednisone -Sputum with gram + cocci and few yeast (antifungal not indicated at this time) and blood cultures pending -Continue Zosyn/azithromycin -at baseline oxygen 4L at 95% -Afebrile, stable BP -Lactate now wnl at 1.8 (2) Acute and chronic respiratory failure with hypoxia Current Visit: Yes Status: Acute Assessment & Plan: -see sepsis Code(s): J96.21 - ACUTE AND CHRONIC RESPIRATORY FAILURE WITH HYPOXIA (3) Pneumonia Current Visit: Yes Status: Acute Assessment & Plan: -see sepsis Code(s): J18.9 - PNEUMONIA, UNSPECIFIED ORGANISM (4) CHF (congestive heart failure) Current Visit: Yes Status: Acute Assessment & Plan: -No recent echo on file -CXR suggested vascular congestion, but CT did not show florid pulmonary edema. -BNP 355 -Monitor for fluid overload (daily weights, I&O, lung exam). -PRN IV diuretic only if clear evidence of congestion develops -Continue home meds -Follows with Dr. Coreas OP 11/22: -resume bumex Code(s): I50.9 - HEART FAILURE, UNSPECIFIED (5) COPD exacerbation Current Visit: Yes Status: Acute Assessment & Plan: see sepsis Code(s): J44.1 - CHRONIC OBSTRUCTIVE PULMONARY DISEASE W (ACUTE) EXACERBATION (6) Hyponatremia Current Visit: Yes Status: Acute Assessment & Plan: -mild -Daily CMP -Fluid restriction if hyponatremia progresses 11/21: -Sodium level at 130 in the setting of hyperglycemia 11/22: -Sodium level reviewed at 136- resolved Code(s): E87.1 - HYPO-OSMOLALITY AND HYPONATREMIA (7) Acute kidney injury superimposed on chronic kidney disease Current Visit: Yes Status: Acute Assessment & Plan: -Mild ELIZA above baseline, likely prerenal baseline around 1.5- currently at 1.72 -Daily renal function and strict I&O. -Renally dose all antibiotics and medications. -Avoid nephrotoxins (NSAIDs, IV contrast). -Balance cautious fluid resuscitation for sepsis with risk of CHF overload. -Consier nephrology consult if progressive rise in creatinine or oliguria. 11/21: -Consult nephrology -continue IVF-avoid nephrotoxic meds -creat reviewed at 2.08 11/22: -Creat reviewed and is at baseline at 1.46 -DC fluids Code(s): N17.9 - ACUTE KIDNEY FAILURE, UNSPECIFIED; N18.9 - CHRONIC KIDNEY DISEASE, UNSPECIFIED (8) Constipation Current Visit: Yes Status: Acute Assessment & Plan: -Worsening fecal stasis, no obstruction. -Bowel regimen with senna and polyethylene glycol. -Encourage mobility. -Monitor for ileus. 11/21: -Bowel regimen -BM x 1 Code(s): K59.00 - CONSTIPATION, UNSPECIFIED (9) Post-acute sequelae of COVID-19 (PASC) Current Visit: Yes Status: Acute Assessment & Plan: -Treated OP with paxlovid- see sepsis Code(s): U09.9 - POST COVID-19 CONDITION, UNSPECIFIED (10) Chronic a-fib Current Visit: No Status: Acute Assessment & Plan: -Tachycardia at presentation; administered 240 mg oral diltiazem before arrival. -Troponins 2 normal no evidence of ACS. -Continuous telemetry. -Continue anticoagulation Eliquis and home meds -Cardiology input if refractory or unstable. Code(s): I48.20 - CHRONIC ATRIAL FIBRILLATION, UNSPECIFIED (11) HTN (hypertension) Current Visit: No Status: Acute Assessment & Plan: -Stable, continue home meds Code(s): I10 - ESSENTIAL (PRIMARY) HYPERTENSION (12) Bladder cancer Current Visit: Yes Status: Acute Assessment & Plan: -History of bladder cancer, patient scheduled for cystoscopy with TURBT on Wednesday with urology. -Continue current admission management for pneumonia/sepsis. -Notify and coordinate with urology regarding hospitalization and acute illness. -Reassess surgical clearance pending stability and recovery from current infection. -Ensure anticoagulation plan reviewed prior to procedure (given history of atrial fibrillation). PVR and bladder scan to evaluate for retention VTE: Eliquis PPI: protonix Dispo: 2-3 days Code status: Full Code Plan of care time spent > 35 mins (2) Acute and chronic respiratory failure with hypoxia Current Visit: Yes Status: Acute Code(s): J96.21 - ACUTE AND CHRONIC RESPI RATORY FAILURE WITH HYPOXIA (3) Pneumonia Current Visit: Yes Status: Acute Code(s): J18.9 - PNEUMONIA, UNSPECIFIED ORGANISM (4) CHF (congestive heart failure) Current Visit: Yes Status: Acute Code(s): I50.9 - HEART FAILURE, UNSPECIFIED (5) COPD exacerbation Current Visit: Yes Status: Acute Code(s): J44.1 - CHRONIC OBSTRUCTIVE PULMONARY DISEASE W (ACUTE) EXACERBATION (6) Hyponatremia Current Visit: Yes Status: Acute Code(s): E87.1 - HYPO-OSMOLALITY AND HYPONATREMIA (7) Acute kidney injury superimposed on chronic kidney disease Current Visit: Yes Status: Acute Code(s): N17.9 - ACUTE KIDNEY FAILURE, UNSPECIFIED; N18.9 - CHRONIC KIDNEY DISEASE, UNSPECIFIED (8) Constipation Current Visit: Yes Status: Acute Code(s): K59.00 - CONSTIPATION, UNSPECIFIED (9) Post-acute sequelae of COVID-19 (PASC) Current Visit: Yes Status: Acute Code(s): U09.9 - POST COVID-19 CONDITION, UNSPECIFIED (10) Chronic a-fib Current Visit: No Status: Acute Code(s): I48.20 - CHRONIC ATRIAL FIBRILLATION, UNSPECIFIED (11) HTN (hypertension) Current Visit: No Status: Acute Code(s): I10 - ESSENTIAL (PRIMARY) HYPERTENSION (12) Hyperglycemia Current Visit: Yes Status: Acute Code(s): R73.9 - HYPERGLYCEMIA, UNSPECIFIED (13) Bladder cancer Current Visit: Yes Status: Acute
[2024-11-22 05:29] LABS: Hematocrit 36.1 % (40.1-51.0); Hemoglobin 11.7 g/dL (13.7-17.5); Mean Corpuscular Hemoglobin 31.2 pg (25.7-32.2); Mean Corpuscular Hgb Concent. 32.4 g/dL (32.3-36.5); Platelet Count 218 x10^3/uL (163-337); Red Blood Count 3.75 x10^6/uL (4.63-6.08); White Blood Count 17.0 x10^3/uL (4.23-9.07)
[2024-11-22 06:10] LABS: Calcium 7.6 mg/dL (8.4-10.2); Carbon Dioxide 26.0 mmol/L (22-30); Creatinine 1 1.46 mg/dL (0.66-1.25); EST GLOMERULAR FILTRATION RATE 48.9 ML/MIN; Glucose 236.0 mg/dL (74-106); Potassium 3.5 mmol/L (3.5-5.1); SGOT/AST 27.0 U/L (17-59); SGPT/ALT 29.0 U/L (0-50); Total Protein 5.6 g/dL (6.3-8.2)
[2024-11-22 07:46] LABS: Glucose, Urine 500 mg/dL (Negative); Protein,Urine Dip Trace (Negative); RBC 0-2 /HPF (0-5); WBC 0-2 /HPF (0-5)
[2024-11-22] MEDS: HUMALOG SQ SCH (08:44)
[2024-11-22] MEDS: DELTASONE 20 MG PO SCH (09:16)
[2024-11-22] MEDS: Mucinex 600MG ER Tabs PO SCH (10:59)
[2024-11-22] MEDS ORDERED: BUMEX 1 MG ONE (14:23)
[2024-11-22] MEDS: BUMEX 1 MG PO SCH (14:27)
[2024-11-22] MEDS ORDERED: NON-FORMULARY ITEM (Bumetanide [Bumetanide] 2 MG Tablet) PO SCH (22:00)
[2024-11-22] MEDS: solu-MEDROL 40 MG, Sterile H2O 10 ml 1 ML IV SCH (22:19)
[2024-11-23 05:55] LABS: Hematocrit 42.7 % (40.1-51.0); Hemoglobin 13.4 g/dL (13.7-17.5); Mean Corpuscular Hemoglobin 30.6 pg (25.7-32.2); Mean Corpuscular Hgb Concent. 31.4 g/dL (32.3-36.5); Platelet Count 254 x10^3/uL (163-337); Red Blood Count 4.38 x10^6/uL (4.63-6.08); White Blood Count 18.1 x10^3/uL (4.23-9.07)
[2024-11-23 06:20] LABS: Calcium 9.2 mg/dL (8.4-10.2); Carbon Dioxide 34.0 mmol/L (22-30); Creatinine 1 1.39 mg/dL (0.66-1.25); EST GLOMERULAR FILTRATION RATE 51.9 ML/MIN; Glucose 191.0 mg/dL (74-106); Potassium 3.9 mmol/L (3.5-5.1); SGOT/AST 38.0 U/L (17-59); SGPT/ALT 51.0 U/L (0-50); Total Protein 6.6 g/dL (6.3-8.2)
[2024-11-23 07:37] VITALS: PULSE 89
[2024-11-23] MEDS ORDERED: BUMEX 1 MG ONE ×2 (08:35→11:36)
[2024-11-23 11:28] LABS: A-aADO2 90; ABG HEMOGLOBIN 14.3; ABG POTASSIUM 3.9 (3.5-5.1); ARTERIAL BLD GAS O2 SATURATION 98.3 % (95-100); ARTERIAL BLOOD GAS BASE EXCESS 9.4 (-2.0-2.0); ARTERIAL BLOOD GAS FIO2 36 %; ARTERIAL BLOOD GAS PCO2 46 mmHg (35-45); ARTERIAL BLOOD GAS PO2 109 mmHg (75-100); ARTERIAL BLOOD GAS TEMPERATURE 37.0 C; HCO3- 34.3 (22-28); HGB O2 SAT 97.0 g/dF (94-100); Methhemoglobin 0.8 % (1.4-1.5); paO2 pAO1 0.55
[2024-11-23 11:43] VITALS: BP 156/84; RESP 16; TEMP 98.1; O2SAT 98
--- NOTE | 2024-11-23 11:45 | PCM.DS ---
Discharge Summary Date of Admission: 11/20/24 17:27 Date of Discharge: 11/23/24 Admitting Physician: CRYSTAL OLGUIN MD Primary Care Provider: KALEY,MALAIKA Allergies Allergies hydrocodone bitartrate [From Vicodin] Allergy (Mild, Verified 11/20/24 11:33) Hives tolmetin [From Tolectin] Allergy (Verified 11/20/24 11:33) Nausea and Vomiting Hospital Summary - Hospital Course Hospital Course: Mr. 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 In the emergency department he was febrile, tachycardic, and hypoxemic on baseline oxygen. Laboratory studies showed leukocytosis, hyponatremia, hypochloremia, elevated bicarbonate, and a rise in creatinine above baseline. Chest X-ray suggested vascular congestion, while CT chest ruled out pulmonary embolism but revealed new bilateral lower and left upper lobe infiltrates consistent with pneumonia superimposed on chronic emphysematous and fibrotic lung disease. CT abdomen showed fecal stasis but no obstruction. He met sepsis criteria and was started on intravenous piperacillintazobactam, azithromycin, and Solu-Medrol, with judicious fluids given his CHF history. He was admitted to telemetry and monitored closely. Over the next several days, his dyspnea and cough gradually improved. He remained at his baseline oxygen requirement of 34 L with saturations in the mid-90s. Sputum culture grew gram-positive cocci with rare yeast, felt to represent colonization, and no antifungal therapy was indicated. His creatinine peaked at 2.08 but returned to baseline at 1.39 after cautious fluid resuscitation . Hyponatremia resolved with supportive care, and constipation improved with bowel regimen. His leukocytosis persisted but was attributed in part to steroid therapy. Heart failure remained compensated, and Bumex was resumed without need for additional IV diuresis. Urology was notified of his hospitalization and his scheduled TURBT was deferred until he has recovered from this acute illness. By 11/23, his symptoms had improved significantly with greater aeration and less wheezing on exam, productive cough resolving, and stable renal function. He was afebrile, hemodynamically stable, ambulating, and tolerating oral intake. Given his improvement, antibiotics were narrowed to oral levofloxacin for a seven-day course, and IV steroids were transitioned to a five-day prednisone taper. He was discharged home on his baseline oxygen with instructions to continue inhalers, Eliquis, bumex, and bowel regimen, with close follow-up arranged with his primary care provider within one week for medication review and discussion of recent A1c changes and elevated blood sugars (patient would like PCP to manage as OP-he reports they are holding off on starting Metformin due to multiple courses of steroids), as well as pulmonology and cardiology in the outpatient setting. He will follow up with urology for rescheduling of TURBT. At discharge he was clinically stable, back at his baseline oxygen, and expressed eagerness to return home. Discharge Note New Diagnosis: Pneumonia post COPD New Medications: Levaquin/prednisone Follow Up: PCP/ Pulmonology Results pending: Sputum culture - will follow I spent 35 minutes [id number] with the patient on the day of discharge performing discharge exam, discussing hospital stay and discharge instructions with patient and caregivers, preparation of discharge records, prescriptions & referral forms and addressing any questions/concerns the patient had as documented above. - Vitals & Intake/Output Vital Signs: Vital Signs Temperature 97.9 F 11/23/24 07:36 Pulse Rate 89 11/23/24 07:36 Respiratory Rate 18 11/23/24 07:36 Blood Pressure 132/61 11/23/24 07:36 O2 Sat by Pulse Oximetry 93 L 11/23/24 07:36 Intake & Output: Intake & Output 11/20/24 11/21/24 11/22/24 11/23/24 11:59 11:59 11:59 11:59 Intake Total 1670 3287 2120 Output Total 1225 1800 950 Balance 445 1487 1170 Weight 104.5 kg 105.8 kg 105.9 kg 105.9 kg - Lab Result Diagrams: 11/23/24 04:45 11/23/24 04:45 Lab Results-Last 24 Hrs: Lab Results-Last 24 Hours 11/22/24 11/22/24 11/22/24 Range/Units 11:39 16:01 21:21 WBC (4.23-9.07) x10^3/uL RBC (4.63-6.08) x10^6/uL Hgb (13.7-17.5) g/dL Hct (40.1-51.0) % MCV (79.0-92.2) fL MCH (25.7-32.2) pg MCHC (32.3-36.5) g/dL RDW (11.6-14.4) % Plt Count (163-337) x10^3/uL MPV (9.4-12.4) fL Puncture Site pCO2 (35-45) mmHg pO2 (75-100) mmHg Base Excess (-2.0-2.0) O2 Saturation (94-100) g/dF ABG pH (7.35-7.45) ABG HCO3 (22-28) ABG O2 Sat (Measured) (95-100) % Miguel Angel Test A-a Gradient a/A Ratio Hemoglobin Carboxyhemoglobin (0.0-6.9) % THgb Methemoglobin (1.4-1.5) % Temperature C POC O2 Flow Rate % Sodium (135-145) mmol/L Potassium (3.5-5.1) mmol/L Chloride (98-107) mmol/L Carbon Dioxide (22-30) mmol/L Anion Gap (5-15) MEQ/L BUN (9-20) mg/dL Creatinine (0.66-1.25) mg/dL Estimated GFR ML/MIN Glucose (74-106) mg/dL POC Glucometer 358 H 277 H 240 H (74 to 106) mg/dL Calcium (8.4-10.2) mg/dL Total Bilirubin (0.2-1.3) mg/dL AST (17-59) U/L ALT (0-50) U/L Alkaline Phosphatase (38-126) U/L Serum Total Protein (6.3-8.2) g/dL Albumin (3.5-5.0) g/dL 11/23/24 11/23/24 11/23/24 Range/Units 04:45 04:45 07:23 WBC 18.1 H (4.23-9.07) x10^3/uL RBC 4.38 L (4.63-6.08) x10^6/uL Hgb 13.4 L (13.7-17.5) g/dL Hct 42.7 (40.1-51.0) % MCV 97.5 H (79.0-92.2) fL MCH 30.6 (25.7-32.2) pg MCHC 31.4 L (32.3-36.5) g/dL RDW 13.4 (11.6-14.4) % Plt Count 254 (163-337) x10^3/uL MPV 8.9 L (9.4-12.4) fL Puncture Site pCO2 (35-45) mmHg pO2 (75-100) mmHg Base Excess (-2.0-2.0) O2 Saturation (94-100) g/dF ABG pH (7.35-7.45) ABG HCO3 (22-28) ABG O2 Sat (Measured) (95-100) % Miguel Angel Test A-a Gradient a/A Ratio Hemoglobin Carboxyhemoglobin (0.0-6.9) % THgb Methemoglobin (1.4-1.5) % Temperature C POC O2 Flow Rate % Sodium 137 (135-145) mmol/L Potassium 3.9 (3.5-5.1) mmol/L Chloride 97 L (98-107) mmol/L Carbon Dioxide 34 H (22-30) mmol/L Anion Gap 10.8 (5-15) MEQ/L BUN 47 H (9-20) mg/dL Creatinine 1.39 H (0.66-1.25) mg/dL Estimated GFR 51.9 ML/MIN Glucose 191 H (74-106) mg/dL POC Glucometer 183 H (74 to 106) mg/dL Calcium 9.2 D (8.4-10.2) mg/dL Total Bilirubin 0.30 (0.2-1.3) mg/dL AST 38 (17-59) U/L ALT 51 H (0-50) U/L Alkaline Phosphatase 128 H (38-126) U/L Serum Total Protein 6.6 (6.3-8.2) g/dL Albumin 3.8 (3.5-5.0) g/dL 11/23/24 11/23/24 Range/Units 11:16 11:23 WBC (4.23-9.07) x10^3/uL RBC (4.63-6.08) x10^6/uL Hgb (13.7-17.5) g/dL Hct (40.1-51.0) % MCV (79.0-92.2) fL MCH (25.7-32.2) pg MCHC (32.3-36.5) g/dL RDW (11.6-14.4) % Plt Count (163-337) x10^3/uL MPV (9.4-12.4) fL Puncture Site Pending pCO2 46 H (35-45) mmHg pO2 109 H (75-100) mmHg Base Excess 9.4 H (-2.0-2.0) O2 Saturation 97.0 (94-100) g/dF ABG pH 7.48 H (7.35-7.45) ABG HCO3 34.3 H* (22-28) ABG O2 Sat (Measured) 98.3 (95-100) % Miguel Angel Test Pending A-a Gradient 90 a/A Ratio 0.55 Hemoglobin 14.3 Carboxyhemoglobin 0.5 (0.0-6.9) % THgb Methemoglobin 0.8 L (1.4-1.5) % Temperature 37.0 C POC O2 Flow Rate 36 % Sodium (135-145) mmol/L Potassium 3.9 (3.5-5.1) mmol/L Chloride (98-107) mmol/L Carbon Dioxide (22-30) mmol/L Anion Gap (5-15) MEQ/L BUN (9-20) mg/dL Creatinine (0.66-1.25) mg/dL Estimated GFR ML/MIN Glucose (74-106) mg/dL POC Glucometer 282 H (74 to 106) mg/dL Calcium (8.4-10.2) mg/dL Total Bilirubin (0.2-1.3) mg/dL AST (17-59) U/L ALT (0-50) U/L Alkaline Phosphatase (38-126) U/L Serum Total Protein (6.3-8.2) g/dL Albumin (3.5-5.0) g/dL Micro Results-Entire Visit: Microbiology 11/20/24 Unknown Gram Stain - Final Sputum - Expectorant 11/20/24 13:13 Blood Culture - Preliminary Blood 11/20/24 11:50 Blood Culture - Preliminary Blood Accuchecks Date 11/23/24 Date 11/22/24 Date 11/22/24 Time 07:35 Time 21:00 Time 16:14 - Procedures and Test Procedures and Tests throughout Hospitalization: Therapy Orders & Screens 11/20/24 11:56 Respiratory Therapy Assessment DAILY Comment: 11/20/24 16:25 Respiratory Therapy Consult ONCE Comment: Reason For Exam: 11/20/24 17:38 Oxygen Nasal Cannula 4 lpm Comment: Diagnosis: post covid PNA 11/21/24 09:08 Respiratory MDI BID Comment: Diagnosis: post covid PNA Discharge Exam General Appearance: no apparent distress Neurologic Exam: alert, oriented x 3, cooperative Eye Exam: PERRL Ears, Nose, Throat Exam: normal ENT inspection Neck Exam: normal inspection Respiratory Exam: diminished breath sounds, wheezing Cardiovascular Exam: regular rate/rhythm, normal heart sounds Gastrointestinal/Abdomen Exam: soft, normal bowel sounds Male Genitalia Exam: deferred Rectal Exam: deferred Extremity Exam: normal inspection Skin Exam: normal color Final Diagnosis/Problem List - Final Discharge Diagnosis/Problem (1) Sepsis Current Visit: Yes Status: Acute Assessment & Plan: Initially met sepsis criteria with fever, tachycardia, leukocytosis, and acute infection. Completed IV broad-spectrum antibiotics (zosyn + azithromycin) with transition to oral levofloxacin 750 mg daily 7 days for step-down therapy. Outpatient follow-up with PCP in 1 week. Return precautions for recurrent fever, worsening cough, or dyspnea. (2) Acute and chronic respiratory failure with hypoxia Current Visit: Yes Status: Acute Assessment & Plan: see pneumonia Code(s): J96.21 - ACUTE AND CHRONIC RESPIRATORY FAILURE WITH HYPOXIA (3) Pneumonia Current Visit: Yes Status: Acute Assessment & Plan: Managed with IV steroids, transitioned to oral prednisone 40 mg daily 5 days. Continued scheduled bronchodilators (Duonebs, albuterol PRN). Resumed home inhalers. Maintain O2 at 34 L/min with goal SpO2 8892%. Pulmonology follow-up within 12 weeks. Code(s): J18.9 - PNEUMONIA, UNSPECIFIED ORGANISM (4) CHF (congestive heart failure) Current Visit: Yes Status: Acute Assessment & Plan: Mild vascular congestion on imaging but no overt decompensation. Restarted Bumex at home dose. Daily weights, fluid/salt restriction as tolerated. Outpatient follow-up with cardiology (Dr. Coreas). Code(s): I50.9 - HEART FAILURE, UNSPECIFIED (5) COPD exacerbation Current Visit: Yes Status: Acute Assessment & Plan: see pneumonia Code(s): J44.1 - CHRONIC OBSTRUCTIVE PULMONARY DISEASE W (ACUTE) EXACERBATION (6) Hyponatremia Current Visit: Yes Status: Acute Assessment & Plan: Improved with treatment of underlying infection and fluids. No fluid restriction required at discharge. Code(s): E87.1 - HYPO-OSMOLALITY AND HYPONATREMIA (7) Acute kidney injury superimposed on chronic kidney disease Current Visit: Yes Status: Acute Assessment & Plan: Likely prerenal from sepsis and diuresis. Creatinine peaked at 2.08, returned to baseline 1.46 by discharge. Avoid nephrotoxins. Renally dose medications. Outpatient monitoring of renal functio Code(s): N17.9 - ACUTE KIDNEY FAILURE, UNSPECIFIED; N18.9 - CHRONIC KIDNEY DISEASE, UNSPECIFIED (8) Constipation Current Visit: Yes Status: Acute Assessment & Plan: resolved Code(s): K59.00 - CONSTIPATION, UNSPECIFIED (9) Post-acute sequelae of COVID-19 (PASC) Current Visit: Yes Status: Acute Assessment & Plan: Recent COVID infection, treated outpatient with Paxlovid. Current presentation attributed to bacterial pneumonia superimposed on COPD, not active viral infection. Discharge Medications (new/adjusted): Levofloxacin 750 mg PO every 48 hours for 7 days Prednisone 40 mg PO daily 5 days. Follow-up: PCP in 1 week (medication review, discuss A1c elevation from steroid use). Pulmonology within 12 weeks. Urology as scheduled for TURBT once stable. Cardiology outpatient follow-up. Code(s): U09.9 - POST COVID-19 CONDITION, UNSPECIFIED (10) Chronic a-fib Current Visit: No Status: Acute Assessment & Plan: Rate controlled with home diltiazem ( administered large dose prior to ED). Remained in chronic AF on telemetry without instability. Continue Eliquis and home rate-control regimen. Code(s): I48.20 - CHRONIC ATRIAL FIBRILLATION, UNSPECIFIED (11) HTN (hypertension) Current Visit: No Status: Acute Assessment & Plan: Resume home meds Code(s): I10 - ESSENTIAL (PRIMARY) HYPERTENSION (12) Hyperglycemia Current Visit: Yes Status: Acute Assessment & Plan: Blood glucose elevation noted in the setting of multiple recent steroid courses. Not previously treated for diabetes. No hypoglycemic agents initiated at discharge given expected short steroid taper and underlying CKD stage III (metformin deferred). Outpatient follow-up with PCP in 1 week for reassessment of glycemic control and discussion of long-term management. Patient and spouse advised to monitor for symptoms of hyperglycemia and seek care if severe or persistent elevations occur. Code(s): R73.9 - HYPERGLYCEMIA, UNSPECIFIED (13) Bladder cancer Current Visit: Yes Status: Acute Assessment & Plan: Planned cystoscopy with TURBT delayed due to acute illness. Urology notified. Anticoagulation plan to be reviewed pre-procedure. - Discharge Discharge Date: 11/23/24 Disposition: Home, Self-Care Condition: Stable Prescriptions: New Prednisone 20 mg [Deltasone 20 mg] 20 mg PO BID 5 Days #10 tablet Albuterol/Ipratropium 3ml Neb* [DUONEB 0.5-3 MG/3 ml Neb] 3 ml IH Q6HRT levoFLOXacin [Levofloxacin] See Rx Instructions .ROUTE .COMPLEX 7 Days #4 tablet Guaifenesin 600 mg ER [Mucinex 600MG ER Tabs] 600 mg PO BID 7 Days #14 tablet Continue Ezetimibe 10 mg [Zetia 10 MG] 10 mg PO HS Vit A/Vit C/Vit E/Zinc/Copper [Preservision Areds Softgel] 1 tablet PO DAILY Tamsulosin HCl 0.4 mg [Flomax 0.4 MG] 2 cap PO HS Allopurinol 100 mg [Zyloprim 100 mg] 100 mg PO HS Bumetanide 2 mg PO BID dilTIAZem HCL [Cartia Xt] 240 mg PO DAILY Potassium Chloride 10 meq PO BID Sertraline HCl 50 mg [Zoloft 50 mg Tablet] 50 mg PO DAILY Sildenafil Citrate 20 mg PO TID Budesonide/Glycopyr/Formoterol [Breztri Aerosphere Inhaler] 2 puff IH BID Apixaban [Eliquis 2.5 mg Tablet] 5 mg PO BID Magnesium Oxide [Magnesium] 500 mg PO HS PANTOPRAZOLE 40 mg Tablet [Protonix 40MG Tablet] 40 mg PO DAILY Discontinued Prednisone 20 mg [Deltasone 20 mg] 5 mg PO BID Follow up with: MALAIKA ROCHE MD [Primary Care Provider, INTERNAL MEDICINE] - 11/30/24 9:30 am
[2024-11-24 06:00] LABS: ABG SITE LBA; ALLEN TEST OK? YES
== END 2024-11-23 12:58 | disposition home or self-care (01) | DRG 871 ==
LOC: ED 11:17 → MED SURG 17:27
PROVIDERS: ADMIT Internal Medicine; ATTEND Internal Medicine
DX: A41.9 Sepsis, unspecified organism (principal); J18.9 Pneumonia, unspecified organism; J96.21 Acute and chronic respiratory failure with hypoxia; J44.1 Chronic obstructive pulmonary disease with (acute) exacerbation; E87.1 Hypo-osmolality and hyponatremia; I48.20 Chronic atrial fibrillation, unspecified; N17.9 Acute kidney failure, unspecified; I12.9 Hypertensive chronic kidney disease with stage 1 through stage 4 chronic kidney disease, or unspecified chronic kidney disease; N18.30 Chronic kidney disease, stage 3 unspecified; I50.9 Heart failure, unspecified; N18.9 Chronic kidney disease, unspecified; K59.00 Constipation, unspecified; U09.9 Post COVID-19 condition, unspecified; R73.9 Hyperglycemia, unspecified; C67.9 Malignant neoplasm of bladder, unspecified; I25.10 Atherosclerotic heart disease of native coronary artery without angina pectoris; R60.0 Localized edema; Z79.899 Other long term (current) drug therapy; Z99.81 Dependence on supplemental oxygen; Z79.01 Long term (current) use of anticoagulants